=== PATIENT | male | born 1955 | race Caucasian/White ===

== ENCOUNTER 2025-04-05 14:05 | Inpatient (IN) ==
--- NOTE | 2025-04-05 14:27 | Emergency Department Note ---
Impression & Plan Atrial fibrillation with rapid ventricular response, Weakness, Acidosis, Acute hyponatremia ED Provider Note NAME: FRANCISCO BISHOP AGE: 69 SEX: M : 1955 ARRIVES VIA: Walk-In INFORMANT: Patient ED PROVIDER(S): Lambert Khan DO CHIEF COMPLAINT: Weakness HPI: Patient is a 69-year-old male who presents ER following 8 falls over the past week. He notes that he has been having diarrhea/loose stools with blood. Denies any black stools. This been going on for several weeks. He saw his PCP and was placed on 2 antibiotics which he started about 7 days ago. When he started these antibiotics he became really weak. He has been falling repetitively. He notes he has a small lack on the back of his head which has been present for the past 3 days. He last fell last night. He does take Plavix. He denies any pain from the fall other than a headache. Friend is present at bedside notes that she just found out about all of this today. ADDITIONAL HISTORY OBTAINED: Per HPI Chronic Medical/Social Conditions Affecting Care: Per HPI PAST MEDICAL HISTORY:See Below PAST SURGICAL HISTORY:See Below FAMILY HISTORY:See Below SOCIAL HISTORY:See Below HOME MEDICATIONS:See Below ALLERGIES:See Below VITALS:See Below PHYSICAL EXAMINATION: Primary Survey Airway: Intact Breathing: Normal, breath sounds equal bilaterally Circulation: Skin warm GCS: 15, Secondary Survey GENERAL: alert, disheveled, no acute distress HEAD: normal cephalic, 1 cm laceration in the hairline in the occipital region on the left head. No venous oozing. Scabbed over. EYE EXAM: normal conjunctiva, PERRL and EOM's grossly intact OROPHARYNX: no exudate, no erythema, lips, buccal mucosa, and tongue normal and mucous membranes are moist NECK: supple, no nuchal rigidity, no adenopathy, non-tender CHEST: stable to compression anteriorly and posteriorly LUNGS: clear to auscultation. Normal chest wall mechanics HEART: Tachycardic and irregular regular S1 normal and S2 normal ABDOMEN: abdomen soft, non-tender, normo-active bowel sounds, no masses, no rebound or guarding. PELVIS: stable to compression anteriorly and posteriorly BACK: Back is symmetrical on inspection and there is no deformity, no midline tenderness, no CVA tenderness. UPPER EXTREMITIES: full active and passive range of motion of all joints without tenderness to palpation LOWER EXTREMITIES: full active and passive range of motion of all joints without tenderness to palpation NEURO EXAM: Normal sensorium, cranial nerves II-XII grossly intact, normal speech, no gross weakness of arms, no gross weakness of legs. GCS: 15. MEDICAL DECISION MAKING: Patient is a 69-year-old male who presents ER as a trauma alert as he fell 6-8 times over the past week. He admits to a small laceration posterior occiput which was 9 cm in length. This occurred 3 days ago. He was found to be tachycardic with A-fib with RVR. Pressures were in the low 100s. Labs showed no significant leukocytosis or anemia. INR at 1.3. BMP with a hyponatremia at 128 and a slightly low CO2 at 18. Creatinine 1.3. LFTs bilirubin was unremarkable. Lipase was normal. CT johansen scan showed a pancolitis but no other acute pathology. Patient was given 2 L of IV fluids. Was given IV Lopressor 5 mg x 3 and heart rate trended down to 150s to 130s. And then trended back up. Was placed on a Cardizem drip and given a bolus of 10 and will titrate up. Discussed case with the hospitalist for further evaluation management treatment. Consults/Care Managements Discussions: Per [facility] Triage Nursing notes reviewed. Limited review of prior medical records performed Vital Signs: reviewed and remarkable for no significant abnormalities Differential diagnosis: Differential diagnoses include major intracranial, cervical, spinal, thoracic, abdominal, pelvic and neurologic injury. Fracture, contusion, sprain, strain, laceration, abrasions included as well. ER treatment provided: See below Diagnostics interpreted by me include EKG and cardiac monitoring as listed below: -Cardiac Monitoring: An order was placed for continuous cardiac monitoring. The monitor shows a rate of 180 with A-fib rhythm. -ECG: A-fib RVR rate of 188 Normal axis No PVCs ST depressions in the inferior leads ST depressions in the lateral leads QTc 417 -Laboratory studies:Interpreted by me as stated above in MDM and shown below. Imaging studies: Xrays: As interpreted by me: Portable AP upright 1 view of the chest shows no focal Lutrate CTs show: CT johansen scan as described above Procedures:none Critical Care: I have personally spent I have personally spent 75 minutes of critical care time in the direct management of this patient. This includes bedside care, interpretation of diagnostic studies, and testing, discussion with consultants, patient, and family members, and other required patient management activities. This [] minutes is in excess of all separately billable procedures. minutes of critical care time in the direct management of this patient. This includes bedside care, interpretation of diagnostic studies, and testing, discussion with consultants, patient, and family members, and other required patient management activities. This 75 minutes is in excess of all separately billable procedures. Past Med/Surg History Problem List (Updated 04/05/25 @ 17:19 by Lambert Khan DO) Acute hyponatremia (Acute) Acidosis (Acute) Weakness (Acute) Atrial fibrillation with rapid ventricular response (Acute) Encounter for pre-operative examination Medical History (Updated 04/05/25 @ 17:19 by Lambert Khan DO) Pericardial effusion HX OF; FOLLOWS WITH CARDIO PVCs (premature ventricular contractions) History of recent steroid use PREDNISONE X 5 DAYS / CERVICALGIA (12/2017) Obesity Degenerative disc disease CERVICAL Diabetes mellitus, type 2 Hypertension Hyperlipidemia Surgical History History of colonoscopy History of tonsillectomy Social History Smoking Status: Former smoker Tobacco Type: Cigarettes Do You Dip or Chew Tobacco: No; Hx Alcohol Use: No Hx Substance Use: No Preferred Language: Lao Communication Ability: Effective Visual Impairment: No Limitations Emt/Dispatcher Required: No Beliefs That Will Affect Care: None Current Living Situation: Alone Feels Safe at Home: Yes Assistive Devices: None Allergies Allergies Allergy/AdvReac Type Severity Reaction Status Date / Time Penicillins Allergy Mild MOUTH SORES Verified 07/05/21 10:16 Home Meds Home Medications Medication Instructions Recorded Confirmed aspirin 81 mg tablet,delayed 81 mg PO QDD 01/20/18 04/05/25 release magnesium oxide 400 mg PO QDD 01/20/18 04/05/25 metformin 500 mg tablet 1,000 mg PO BID 01/20/18 04/05/25 cyanocobalamin (vitamin B-12) 1,000 mcg sublingual DAILY 07/05/21 04/05/25 1,000 mcg sublingual tablet empagliflozin 25 mg tablet 25 mg PO DAILY 07/05/21 04/05/25 (Jardiance) verapamil 120 mg tablet,extended 120 mg PO QPM 07/05/21 04/05/25 release clopidogrel 75 mg tablet 75 mg PO DAILY 04/05/25 04/05/25 rosuvastatin 20 mg tablet 20 mg PO DAILY 04/05/25 04/05/25 semaglutide 1 mg/dose (4 mg/3 mL) 1 mg subcut WK 04/05/25 04/05/25 subcutaneous pen injector (Ozempic) Results & Data (ED) Vital Signs Vital Signs - 24 hr 04/05/25 14:13 04/05/25 14:25 04/05/25 14:28 Temperature 36.5 C 36.7 C Temperature Source Temporal Artery Scan Pulse Rate 91 H 183 H Pulse Rate [Apical] Pulse Rate from SpO2 Sensor Respiratory Rate 20 21 Respiratory Effort / Characteristics Respiratory Depth Normal Respiratory Pattern Blood Pressure 135/81 175/97 H 175/97 H Blood Pressure [Right Arm] Blood Pressure Mean 99 123 Blood Pressure Mean [Right Arm] Blood Pressure Position [Right Arm] Pulse Oximetry 95 100 Oxygen Delivery Method Room Air Room Air Oxygen Flow Rate 0 Sepsis Recent Fever Within 48 Hours No Sepsis New/Unexplained Change in Mental Status No Sepsis Action Taken by Nursing No Action Required 04/05/25 14:28 04/05/25 14:28 04/05/25 14:29 Temperature 36.7 C Temperature Source Oral Pulse Rate 183 H 161 H Pulse Rate [Apical] 183 H Pulse Rate from SpO2 Sensor Respiratory Rate 17 20 Respiratory Effort / Characteristics Non-Labored Spontaneous Respiratory Depth Normal Respiratory Pattern Blood Pressure Blood Pressure [Right Arm] 175/97 H Blood Pressure Mean Blood Pressure Mean [Right Arm] 123 Blood Pressure Position [Right Arm] Semi-fowlers Pulse Oximetry 100 100 Oxygen Delivery Method Room Air Room Air Oxygen Flow Rate Sepsis Recent Fever Within 48 Hours Sepsis New/Unexplained Change in Mental Status Sepsis Action Taken by Nursing 04/05/25 14:30 04/05/25 14:31 04/05/25 14:33 Temperature Temperature Source Pulse Rate 174 H 178 H Pulse Rate [Apical] Pulse Rate from SpO2 Sensor 89 Respiratory Rate 21 17 Respiratory Effort / Characteristics Respiratory Depth Respiratory Pattern Blood Pressure 164/123 H 117/86 Blood Pressure [Right Arm] Blood Pressure Mean 139 96 Blood Pressure Mean [Right Arm] Blood Pressure Position [Right Arm] Pulse Oximetry 90 Oxygen Delivery Method Room Air Oxygen Flow Rate Sepsis Recent Fever Within 48 Hours Sepsis New/Unexplained Change in Mental Status Sepsis Action Taken by Nursing 04/05/25 14:41 04/05/25 15:12 04/05/25 15:15 Temperature Temperature Source Pulse Rate 174 H 159 H 173 H Pulse Rate [Apical] Pulse Rate from SpO2 Sensor Respiratory Rate Respiratory Effort / Characteristics Respiratory Depth Respiratory Pattern Blood Pressure 134/82 114/89 Blood Pressure [Right Arm] Blood Pressure Mean Blood Pressure Mean [Right Arm] Blood Pressure Position [Right Arm] Pulse Oximetry Oxygen Delivery Method Oxygen Flow Rate Sepsis Recent Fever Within 48 Hours Sepsis New/Unexplained Change in Mental Status Sepsis Action Taken by Nursing 04/05/25 15:16 04/05/25 15:22 04/05/25 16:12 Temperature 36.9 C Temperature Source Oral Pulse Rate 173 H Pulse Rate [Apical] 164 H 170 H Pulse Rate from SpO2 Sensor Respiratory Rate 18 18 Respiratory Effort / Characteristics Non-Labored Spontaneous Non-Labored Spontaneous Respiratory Depth Normal Normal Respiratory Pattern Regular Regular Blood Pressure Blood Pressure [Right Arm] 96/77 L 146/90 H Blood Pressure Mean Blood Pressure Mean [Right Arm] 83 108 Blood Pressure Position [Right Arm] Pulse Oximetry 100 100 Oxygen Delivery Method Room Air Room Air Oxygen Flow Rate Sepsis Recent Fever Within 48 Hours Sepsis New/Unexplained Change in Mental Status Sepsis Action Taken by Nursing 04/05/25 16:34 04/05/25 17:00 Temperature 36.8 C Temperature Source Oral Pulse Rate Pulse Rate [Apical] 164 H 183 H Pulse Rate from SpO2 Sensor Respiratory Rate 18 18 Respiratory Effort / Characteristics Non-Labored Spontaneous Non-Labored Spontaneous Respiratory Depth Normal Normal Respiratory Pattern Regular Regular Blood Pressure Blood Pressure [Right Arm] 101/73 95/72 L Blood Pressure Mean Blood Pressure Mean [Right Arm] 82 79 Blood Pressure Position [Right Arm] Lying Pulse Oximetry 94 99 Oxygen Delivery Method Room Air Room Air Oxygen Flow Rate Sepsis Recent Fever Within 48 Hours Sepsis New/Unexplained Change in Mental Status Sepsis Action Taken by Nursing Laboratory Data 04/05/25 14:27 04/05/25 14:27 Lab Results 04/05/25 04/05/25 Range/Units 14:27 14:36 WBC 8.56 (4.8-10.8) K/ul RBC 6.54 H (4.70-6.10) M/uL Hgb 15.3 (14.0-18.0) g/dL POC Hgb 18.0 (14.0-18.0) g/dl Hct 48.4 (42.0-52.0) % POC Hct 53 H (42-52) % MCV 74.0 L (80.0-100.0) fL MCH 23.4 L (25.0-34.0) pg MCHC 31.6 L (32.0-36.0) g/dL RDW Std Deviation 46.2 (36.4-46.3) fL RDW Coeff of Tavo 19.3 H (11.5-14.5) % Plt Count 585 H (130-400) K/uL MPV 9.6 (9.4-12.4) fL Immature Gran % (Auto) 0.9 % Neut % (Auto) 79.4 % Lymph % (Auto) 13.3 % [place] % (Auto) 4.9 % Eos % (Auto) 0.7 % Baso % (Auto) 0.8 % Neut # (Auto) 6.79 H (1.40-6.50) K/uL Lymph # (Auto) 1.14 L (1.20-3.40) K/uL [place] # (Auto) 0.42 (0.11-0.59) K/uL Eos # (Auto) 0.06 (0.00-0.50) K/uL Baso # (Auto) 0.07 (0.00-0.20) K/uL Immature Gran # (Auto) 0.08 (0.01-0.20) K/uL PT 13.7 H (9.0-12.0) Seconds INR 1.3 H (0.9-1.1) APTT 28 (21-31) Seconds PTT Ratio 1.0 POC Sodium 129 L (135-144) mmol/L Sodium 128 L (136-145) mmol/L POC Potassium 4.2 (3.3-5.0) mmol/L Potassium 4.2 (3.5-5.1) mmol/L POC Chloride 92 L (101-112) mmol/L Chloride 87 L (98-107) mmol/L Carbon Dioxide 18 L (21-32) mmol/L POC Total CO2 17 L (24-31) mmol/L Anion Gap 23 H (3-11) POC Anion Gap 25.0 (16-25) mmol/L POC BUN 24 H (7-18) mg/dl BUN 24 H (6-23) mg/dl Creatinine 1.36 (0.6-1.4) mg/dl POC Creatinine 1.4 H (0.6-1.3) mg/dl Est Cr Clr Drug Dosing Not Reportable eGFR 56.68 BUN/Creatinine Ratio 17.6 (10-20) Glucose 195 H (70-99(Fasting)) mg/dl POC Glucose (other) 181 H (70-99) mg/dl Calcium 10.2 (8.6-10.3) mg/dl POC Ioniz Calcium [place] 1.09 L (1.12-1.32) mmol/l Magnesium 2.0 (1.7-2.4) mg/dl Total Bilirubin 0.8 (0.2-1.0) mg/dl AST 18 (13-39) U/L ALT 13 (7-52) U/L Alkaline Phosphatase 59 (34-104) U/L Total Creatine Kinase 114 (30-223) U/L Total Protein 9.1 H (6.0-8.3) gm/dl Albumin 3.6 (3.4-5.0) gm/dl Globulin 5.5 H (2.5-4.0) gm/dl Albumin/Globulin Ratio 0.7 L (0.9-2) Lipase 23 (11-82) U/L Administered Medications Diltiazem HCl 125 mg/ Dextrose 125 mls @ 5 mls/hr IV .Q24H [facility]; Protocol Stop: 05/05/25 15:44 Last Titration: 04/05/25 16:47 Dose: 10 mg/hr, 10 mls/hr Documented By: BHARAT Co-signed By: KYRIE Admin: 04/05/25 16:14 Dose: 5 mg/hr, 5 mls/hr Documented By: BHARAT Co-signed By: OSVALDO Discontinued Medications Diltiazem HCl (Diltiazem Hcl 5 Mg/Ml 5 Ml Vial) 10 mg IV NOW STA Stop: 04/05/25 15:46 Last Admin: 04/05/25 16:05 Dose: 10 mg Documented By: BHARAT Co-signed By: OSVALDO Sodium Chloride (Nss) 1,000 mls @ 999 mls/hr IV .Q1H1M ONE Stop: 04/05/25 15:27 Last Infusion: 04/05/25 15:35 Dose: Infused Documented By: Admin: 04/05/25 14:34 Dose: 999 mls/hr Documented By: NORMAN Sodium Chloride (Nss) 1,000 mls @ 999 mls/hr IV .Q1H1M ONE Stop: 04/05/25 16:25 Last Infusion: 04/05/25 16:32 Dose: Infused Documented By: Admin: 04/05/25 15:31 Dose: 999 mls/hr Documented By: BHARAT Ioversol (Optiray 320 100ml) 90 ml IV ONCE ONE Stop: 04/05/25 14:51 Last Admin: 04/05/25 14:51 Dose: 90 ml Documented By: NILS Metoprolol Tartrate (Metoprolol Tartrate 1 Mg/Ml Vial) 5 mg IV NOW STA Stop: 04/05/25 14:31 Last Admin: 04/05/25 14:33 Dose: 5 mg Documented By: NORMAN Metoprolol Tartrate (Metoprolol Tartrate 1 Mg/Ml Vial) Confirm Administered Dose 5 mg IV .ST-MED ONE Stop: 04/05/25 14:32 Last Admin: 04/05/25 14:36 Dose: Not Given Documented By: NORMAN Metoprolol Tartrate (Metoprolol Tartrate 1 Mg/Ml Vial) 5 mg IV NOW STA Stop: 04/05/25 14:40 Last Admin: 04/05/25 14:41 Dose: 5 mg Documented By: NORMAN Metoprolol Tartrate (Metoprolol Tartrate 1 Mg/Ml Vial) 5 mg IV NOW STA Stop: 04/05/25 14:54 Last Admin: 04/05/25 15:12 Dose: 5 mg Documented By: BHARAT Imaging Data Radiologist's Impression: Abdomen/Pelvis CT 04/05/25 14:25 CT SCAN OF THE CHEST, ABDOMEN, AND PELVIS WITH IV CONTRAST CLINICAL HISTORY: Trauma. Falls. COMPARISON STUDY: Chest CT dated 05/08/2022. TECHNIQUE: Following the IV administration of 90 cc of Optiray 320, CT scan of the chest, abdomen, and pelvis was performed from the thoracic inlet to the proximal femora. Images are reviewed in the axial, sagittal, and coronal planes. IV contrast was administered without complication. A dose lowering technique was utilized adhering to the principles of ALARA. CT DOSE: 4107.45 mGy.cm FINDINGS: CHEST: Thyroid: Imaged portions of the thyroid gland are normal in size and attenuation. Thoracic aorta: There is mild atherosclerotic calcification of the thoracic aorta, which is normal in caliber and demonstrates standard 3-vessel arch anatomy. No dissection is seen. Pulmonary vasculature: The pulmonary trunk is normal in caliber. There are no filling defects identified in the central pulmonary vessels to indicate pulmonary embolus. Note that this examination was not protocoled for evaluation of the pulmonary arteries. Heart: The heart is enlarged noting a moderate pericardial effusion. The coronary arteries are densely calcified. Lungs and pleural spaces: There is no airspace consolidation, pleural effusion, or pneumothorax. The trachea and central airways are clear. There is a 10 mm groundglass nodule in the right apex on image #51 with a 5 mm more nodular focus. This has modestly increased in size from 05/08/2022. An 8 mm subsolid nodular opacity in the left lower lobe on image #163 is also increased in size from previous. Mediastinum: There is no mediastinal hematoma or lymphadenopathy. Archana: Clear. Axillae: There is no axillary lymphadenopathy. Bony thorax: The skeletal structures are osteopenic. The bony thorax appears intact. No lytic or blastic lesions are identified. ABDOMEN AND PELVIS: Liver: The contrast-enhanced liver is normal in size, contour, and attenuation. Fatty infiltration is seen adjacent to the falciform ligament. There is no intrahepatic biliary ductal dilatation. The hepatic veins and portal veins are patent. Gallbladder: Unremarkable. Spleen: Normal in size and attenuation. Pancreas: Unremarkable. Adrenal glands: A 2.8 cm indeterminant right adrenal nodule has not appreciably changed from 2023. The left adrenal gland is normal in appearance. Kidneys: The contrast enhanced kidneys are normal in size and without hydronephrosis. The kidneys enhance symmetrically. A 1.4 cm cyst is noted on the right. Additional subcentimeter cortical hypodensities also likely represent cysts but are too small for definitive characterization. Abdominal vasculature: The abdominal aorta is normal in course and caliber noting moderate atherosclerotic calcification. There is a small fat-containing umbilical hernia. Stents are present within the right iliac arteries. These appear patent. Stomach and bowel: There is a small hiatal hernia. There is no bowel obstruction. The colonic wall appears diffusely thickened with mild edema indicating a nonspecific pancolitis. The appendix is well-visualized and normal. Peritoneum: There is no intraperitoneal free air or abdominal ascites. Lymphadenopathy: None. Pelvic viscera: The prostate gland is normal in size and heterogeneous in attenuation. The bladder wall appears thickened/trabeculated indicating chronic outlet obstruction. Postsurgical change is noted in the right groin. Skeletal structures: The skeletal structures are osteopenic. There is mild to moderate lumbosacral spondylosis. The lumbosacral spine, bony pelvis, and proximal femora appear intact. No lytic or blastic lesions are seen. IMPRESSION: 1. There is no acute posttraumatic intrathoracic abnormality. 2. There is no airspace consolidation, pleural effusion, or pneumothorax. 3. There is no evidence of solid organ injury in the abdomen or pelvis. 4. Findings are consistent with a nonspecific pancolitis. 5. A groundglass lesion at the right apex measuring up to 10 mm and an 8 mm subsolid nodule in the left lower lobe have increased in size dating back to 2022. Low-grade adenomatous lesions are not excluded. Nonemergent follow-up with pulmonology is recommended, as is a 6 month follow-up chest CT for reassessment. 6. An indeterminant right adrenal nodule is unchanged from 2022. 7. Cardiomegaly noting coronary artery atherosclerosis and a moderate pericardial effusion. 8. Additional findings as above. ACT 112: Positive. There are findings on this exam that require communication between the performing entity and the patient following Patient Test Result Information Act ([place] Act 112) guidelines. Electronically signed by: Redd Dunne M.D. 04/05/2025 3:[address] 04/05/25 14:25 CT SCAN OF THE CERVICAL SPINE CLINICAL HISTORY: Falls. COMPARISON STUDY: Fluoroscopic images of the cervical spine May 07, 2018. MRI of the cervical spine December 14, 2017. TECHNIQUE: CT scan of the cervical spine is performed from the skull base to the upper thoracic spine. Images are reviewed in the axial, sagittal, and coronal planes. IV contrast was not administered for this examination. A dose lowering technique was utilized adhering to the principles of ALARA. FINDINGS: Skeletal structures: Status post C4-C5 discectomy and fusion. There is no evidence of fracture or subluxation involving the cervical spine. Vertebral body height and alignment are maintained. The odontoid process and lateral masses are intact. The atlantoaxial articulation is preserved. The spinous processes appear intact. Moderate multilevel degenerative changes within the cervical spine are present. Soft tissues: The prevertebral and paraspinous soft tissues are within normal limits. Calvarium: The visualized calvarium at the skull base appears intact. Brain parenchyma: Partially visualized brain parenchyma at the skull base is within normal limits. Lung apices: A right upper lobe subsolid pulmonary nodule is better depicted on the chest CT which will be reported separately. IMPRESSION: No acute cervical spine fracture or subluxation. ACT 112: Negative or not required by law. Electronically signed by: Shen Santos M.D. 04/05/2025 3:[address] 04/05/25 14:25 CT SCAN OF THE CHEST, ABDOMEN, AND PELVIS WITH IV CONTRAST CLINICAL HISTORY: Trauma. Falls. COMPARISON STUDY: Chest CT dated 05/08/2022. TECHNIQUE: Following the IV administration of 90 cc of Optiray 320, CT scan of the chest, abdomen, and pelvis was performed from the thoracic inlet to the proximal femora. Images are reviewed in the axial, sagittal, and coronal planes. IV contrast was administered without complication. A dose lowering technique was utilized adhering to the principles of ALARA. CT DOSE: 4107.45 mGy.cm FINDINGS: CHEST: Thyroid: Imaged portions of the thyroid gland are normal in size and attenuation. Thoracic aorta: There is mild atherosclerotic calcification of the thoracic aorta, which is normal in caliber and demonstrates standard 3-vessel arch anatomy. No dissection is seen. Pulmonary vasculature: The pulmonary trunk is normal in caliber. There are no filling defects identified in the central pulmonary vessels to indicate pulmonary embolus. Note that this examination was not protocoled for evaluation of the pulmonary arteries. Heart: The heart is enlarged noting a moderate pericardial effusion. The coronary arteries are densely calcified. Lungs and pleural spaces: There is no airspace consolidation, pleural effusion, or pneumothorax. The trachea and central airways are clear. There is a 10 mm groundglass nodule in the right apex on image #51 with a 5 mm more nodular focus. This has modestly increased in size from 05/08/2022. An 8 mm subsolid nodular opacity in the left lower lobe on image #163 is also increased in size from previous. Mediastinum: There is no mediastinal hematoma or lymphadenopathy. Archana: Clear. Axillae: There is no axillary lymphadenopathy. Bony thorax: The skeletal structures are osteopenic. The bony thorax appears intact. No lytic or blastic lesions are identified. ABDOMEN AND PELVIS: Liver: The contrast-enhanced liver is normal in size, contour, and attenuation. Fatty infiltration is seen adjacent to the falciform ligament. There is no intrahepatic biliary ductal dilatation. The hepatic veins and portal veins are patent. Gallbladder: Unremarkable. Spleen: Normal in size and attenuation. Pancreas: Unremarkable. Adrenal glands: A 2.8 cm indeterminant right adrenal nodule has not appreciably changed from 2022. The left adrenal gland is normal in appearance. Kidneys: The contrast enhanced kidneys are normal in size and without hydronephrosis. The kidneys enhance symmetrically. A 1.4 cm cyst is noted on the right. Additional subcentimeter cortical hypodensities also likely represent cysts but are too small for definitive characterization. Abdominal vasculature: The abdominal aorta is normal in course and caliber noting moderate atherosclerotic calcification. There is a small fat-containing umbilical hernia. Stents are present within the right iliac arteries. These appear patent. Stomach and bowel: There is a small hiatal hernia. There is no bowel obstruction. The colonic wall appears diffusely thickened with mild edema indicating a nonspecific pancolitis. The appendix is well-visualized and normal. Peritoneum: There is no intraperitoneal free air or abdominal ascites. Lymphadenopathy: None. Pelvic viscera: The prostate gland is normal in size and heterogeneous in attenuation. The bladder wall appears thickened/trabeculated indicating chronic outlet obstruction. Postsurgical change is noted in the right groin. Skeletal structures: The skeletal structures are osteopenic. There is mild to moderate lumbosacral spondylosis. The lumbosacral spine, bony pelvis, and proximal femora appear intact. No lytic or blastic lesions are seen. IMPRESSION: 1. There is no acute posttraumatic intrathoracic abnormality. 2. There is no airspace consolidation, pleural effusion, or pneumothorax. 3. There is no evidence of solid organ injury in the abdomen or pelvis. 4. Findings are consistent with a nonspecific pancolitis. 5. A groundglass lesion at the right apex measuring up to 10 mm and an 8 mm subsolid nodule in the left lower lobe have increased in size dating back to 2022. Low-grade adenomatous lesions are not excluded. Nonemergent follow-up with pulmonology is recommended, as is a 6 month follow-up chest CT for reassessment. 6. An indeterminant right adrenal nodule is unchanged from 2022. 7. Cardiomegaly noting coronary artery atherosclerosis and a moderate pericardial effusion. 8. Additional findings as above. ACT 112: Positive. There are findings on this exam that require communication between the performing entity and the patient following Patient Test Result Information Act ([place] Act 112) guidelines. Electronically signed by: Redd Dunne M.D. 04/05/2025 3:32 PM Chest X-Ray 04/05/25 14:25 SINGLE VIEW CHEST CLINICAL HISTORY: Trauma FINDINGS: An AP, portable, semierect chest radiograph is compared to study dated 01/23/2018 and correlated with chest CT dated 05/08/2022. The examination is degraded by portable technique and apical lordotic positioning. The heart is enlarged. The pulmonary vasculature is noncongested. The lungs and pleural spaces are clear. No pneumothorax is seen. The skeletal structures are osteopenic. The bony thorax is grossly intact. Degenerative change is seen in the shoulders. IMPRESSION: Cardiomegaly with no acute cardiopulmonary abnormality identified. ACT 112: Negative or not required by law. Electronically signed by: Redd Dunne M.D. 04/05/2025 2:[address] 04/05/25 14:25 CT SCAN OF THE BRAIN WITHOUT IV CONTRAST CLINICAL HISTORY: Falls. COMPARISON STUDY: None. TECHNIQUE: Unenhanced axial CT scan of the brain was performed from the vertex to the skull base. A dose lowering technique was utilized adhering to the principles of ALARA. FINDINGS: Brain parenchyma: No acute intracranial hemorrhage, midline shift or mass effect is present. Blanco-white matter differentiation is preserved. There are no extra- axial fluid collections. There are no findings to suggest acute dural sinus thrombosis or acute territorial infarct. Ventricles, sulci, cisterns: There is no hydrocephalus. The basal cisterns are patent. Calvarium: No calvarial fractures. Sinuses and mastoids: The visualized paranasal sinuses are clear. The mastoid air cells are well pneumatized. Orbits: The bony orbits are grossly intact. IMPRESSION: 1. No acute intracranial findings. 2. No calvarial fractures. ACT 112: Negative or not required by law. Electronically signed by: Shen Santos M.D. 04/05/2025 3:16 PM Discharge Plan Visit Data Chief Complaint: Trauma Stated Complaint: WEAKNESS/FALLING HIT HEAD BLOOD THINNERS ED Provider: Lambert Khan Discharge Problem: Atrial fibrillation with rapid ventricular response, Weakness, Acidosis, Acute hyponatremia Condition: Serious Forms Stand Alone Forms: My [facility] Prescriptions Prescriptions: No Action metformin 500 mg Tablet 1,000 mg PO BID Patient Comments: 500mg tabs #2 in am and #1 at hs aspirin 81 mg Tablet,Delayed Release (Dr/Ec) 81 mg PO QDD magnesium oxide 400 mg Capsule 400 mg PO QDD verapamil 120 mg Tablet Extended Release 120 mg PO QPM cyanocobalamin (vitamin B-12) 1,000 mcg Tablet, Sublingual 1,000 mcg SUBLINGUAL DAILY Jardiance 25 mg Tablet 25 mg PO DAILY rosuvastatin 20 mg tablet 20 mg PO DAILY Ozempic 1 mg/dose (4 mg/3 mL) pen injector 1 mg SUBCUT WK clopidogrel 75 mg tablet 75 mg PO DAILY Referrals Referrals: Geovanny Lacy MD [Primary Care Provider] -
[2025-04-05] MEDS: METOPROLOL TARTRATE 1 MG/ML VIAL IV STA ×3 (14:33→15:12)
[2025-04-05] MEDS: SODIUM CHLORIDE 0.9% 1,000 ML IV ONE ×2 (14:34→15:31)
[2025-04-05] MEDS: METOPROLOL TARTRATE 1 MG/ML VIAL IV ONE (14:36)
--- NOTE | 2025-04-05 14:44 | XRay Report ---
SINGLE VIEW CHEST CLINICAL HISTORY: Trauma FINDINGS: An AP, portable, semierect chest radiograph is compared to study dated 01/23/2018 and correl ated with chest CT dated 05/08/2022. The examination is degraded by portable technique and apical lord otic positioning. The heart is enlarged. The pulmonary vasculature is noncongested. The lungs and ple ural spaces are clear. No pneumothorax is seen. The skeletal structures are osteopenic. The bony thor ax is grossly intact. Degenerative change is seen in the shoulders. IMPRESSION: Cardiomegaly with no acute cardiopulmonary abnormality identified. ACT 112: Negative or not required by law. Electronically signed by: Redd Dunne M.D. 04/05/2025 2:42 PM
[2025-04-05 14:49] LABS: Hematocrit (blood only) 48.4 % (42.0-52.0); Hemoglobin 15.3 g/dL (14.0-18.0); Immature Granulocytes # (auto) 0.08 K/uL (0.01-0.20); Immature Granulocytes % (auto) 0.9 %; Mean Corpuscular Hemoglobin 23.4 pg (25.0-34.0); Mean Corpuscular Volume 74.0 fL (80.0-100.0); Platelet Count 585 K/uL (130-400); RDW Standard Deviation 46.2 fL (36.4-46.3); Red Blood Count 6.54 M/uL (4.70-6.10); White Blood Count 8.56 K/ul (4.8-10.8)
[2025-04-05] MEDS: OPTIRAY 320 100ml IV ONE (14:51)
[2025-04-05 15:07] LABS: Alanine Aminotransferase 13 U/L (7-52); Albumin Globulin Ratio 0.7 (0.9-2); Albumin Level 3.6 gm/dl (3.4-5.0); Alkaline Phosphatase 59 U/L (34-104); Anion Gap 23 (3-11); Bilirubin,Total 0.8 mg/dl (0.2-1.0); Blood Urea Nitrogen 24 mg/dl (6-23); Calcium 10.2 mg/dl (8.6-10.3); Carbon Dioxide 18 mmol/L (21-32); Chloride 87 mmol/L (98-107); Globulin 5.5 gm/dl (2.5-4.0); Glucose 195 mg/dl (70-99(Fasting)); Lipase 23 U/L (11-82); Potassium 4.2 mmol/L (3.5-5.1); Sodium 128 mmol/L (136-145); Total Protein 9.1 gm/dl (6.0-8.3)
--- NOTE | 2025-04-05 15:18 | CT Scan Report ---
CT SCAN OF THE BRAIN WITHOUT IV CONTRAST CLINICAL HISTORY: Falls. COMPARISON STUDY: None. TECHNIQUE: Unenhanced axial CT scan of the brain was performed from the vertex to the skull base. A dose lowering technique was utilized adhering to the principles of ALARA. FINDINGS: Brain parenchyma: No acute intracranial hemorrhage, midline shift or mass effect is present. Blanco-whi te matter differentiation is preserved. There are no extra-axial fluid collections. There are no find ings to suggest acute dural sinus thrombosis or acute territorial infarct. Ventricles, sulci, cisterns: There is no hydrocephalus. The basal cisterns are patent. Calvarium: No calvarial fractures. Sinuses and mastoids: The visualized paranasal sinuses are clear. The mastoid air cells are well pneu matized. Orbits: The bony orbits are grossly intact. IMPRESSION: 1. No acute intracranial findings. 2. No calvarial fractures. ACT 112: Negative or not required by law. Electronically signed by: Shen Santos M.D. 04/05/2025 3:16 PM
[2025-04-05 15:23] LABS: INR 1.3 (0.9-1.1); Partial Thromboplastin Time 28 Seconds (21-31); Prothrombin Time 13.7 Seconds (9.0-12.0)
--- NOTE | 2025-04-05 15:25 | CT Scan Report ---
CT SCAN OF THE CERVICAL SPINE CLINICAL HISTORY: Falls. COMPARISON STUDY: Fluoroscopic images of the cervical spine May 07, 2018. MRI of the cervical sp ine December 14, 2017. TECHNIQUE: CT scan of the cervical spine is performed from the skull base to the upper thoracic spine . Images are reviewed in the axial, sagittal, and coronal planes. IV contrast was not administered fo r this examination. A dose lowering technique was utilized adhering to the principles of ALARA. FINDINGS: Skeletal structures: Status post C4-C5 discectomy and fusion. There is no evidence of fracture or sub luxation involving the cervical spine. Vertebral body height and alignment are maintained. The odont oid process and lateral masses are intact. The atlantoaxial articulation is preserved. The spinous pr ocesses appear intact. Moderate multilevel degenerative changes within the cervical spine are present . Soft tissues: The prevertebral and paraspinous soft tissues are within normal limits. Calvarium: The visualized calvarium at the skull base appears intact. Brain parenchyma: Partially visualized brain parenchyma at the skull base is within normal limits. Lung apices: A right upper lobe subsolid pulmonary nodule is better depicted on the chest CT which wi ll be reported separately. IMPRESSION: No acute cervical spine fracture or subluxation. ACT 112: Negative or not required by law. Electronically signed by: Shen Santos M.D. 04/05/2025 3:24 PM
--- NOTE | 2025-04-05 15:34 | CT Scan Report ---
CT SCAN OF THE CHEST, ABDOMEN, AND PELVIS WITH IV CONTRAST CLINICAL HISTORY: Trauma. Falls. COMPARISON STUDY: Chest CT dated 05/08/2022. TECHNIQUE: Following the IV administration of 90 cc of Optiray 320, CT scan of the chest, abdomen, an d pelvis was performed from the thoracic inlet to the proximal femora. Images are reviewed in the axi al, sagittal, and coronal planes. IV contrast was administered without complication. A dose lowering technique was utilized adhering to the principles of ALARA. CT DOSE: 4107.45 mGy.cm FINDINGS: CHEST: Thyroid: Imaged portions of the thyroid gland are normal in size and attenuation. Thoracic aorta: There is mild atherosclerotic calcification of the thoracic aorta, which is normal in caliber and demonstrates standard 3-vessel arch anatomy. No dissection is seen. Pulmonary vasculature: The pulmonary trunk is normal in caliber. There are no filling defects identif ied in the central pulmonary vessels to indicate pulmonary embolus. Note that this examination was no t protocoled for evaluation of the pulmonary arteries. Heart: The heart is enlarged noting a moderate pericardial effusion. The coronary arteries are densel y calcified. Lungs and pleural spaces: There is no airspace consolidation, pleural effusion, or pneumothorax. The trachea and central airways are clear. There is a 10 mm groundglass nodule in the right apex on image #51 with a 5 mm more nodular focus. This has modestly increased in size from 05/08/2022. An 8 mm subs olid nodular opacity in the left lower lobe on image #163 is also increased in size from previous. Mediastinum: There is no mediastinal hematoma or lymphadenopathy. Archana: Clear. Axillae: There is no axillary lymphadenopathy. Bony thorax: The skeletal structures are osteopenic. The bony thorax appears intact. No lytic or memo tic lesions are identified. ABDOMEN AND PELVIS: Liver: The contrast-enhanced liver is normal in size, contour, and attenuation. Fatty infiltration is seen adjacent to the falciform ligament. There is no intrahepatic biliary ductal dilatation. The hep atic veins and portal veins are patent. Gallbladder: Unremarkable. Spleen: Normal in size and attenuation. Pancreas: Unremarkable. Adrenal glands: A 2.8 cm indeterminant right adrenal nodule has not appreciably changed from 2022. Th e left adrenal gland is normal in appearance. Kidneys: The contrast enhanced kidneys are normal in size and without hydronephrosis. The kidneys enh ance symmetrically. A 1.4 cm cyst is noted on the right. Additional subcentimeter cortical hypodensit ies also likely represent cysts but are too small for definitive characterization. Abdominal vasculature: The abdominal aorta is normal in course and caliber noting moderate atheroscle rotic calcification. There is a small fat-containing umbilical hernia. Stents are present within the right iliac arteries. These appear patent. Stomach and bowel: There is a small hiatal hernia. There is no bowel obstruction. The colonic wall ap pears diffusely thickened with mild edema indicating a nonspecific pancolitis. The appendix is well- visualized and normal. Peritoneum: There is no intraperitoneal free air or abdominal ascites. Lymphadenopathy: None. Pelvic viscera: The prostate gland is normal in size and heterogeneous in attenuation. The bladder wa ll appears thickened/trabeculated indicating chronic outlet obstruction. Postsurgical change is noted in the right groin. Skeletal structures: The skeletal structures are osteopenic. There is mild to moderate lumbosacral sp ondylosis. The lumbosacral spine, bony pelvis, and proximal femora appear intact. No lytic or blastic lesions are seen. IMPRESSION: 1. There is no acute posttraumatic intrathoracic abnormality. 2. There is no airspace consolidation, pleural effusion, or pneumothorax. 3. There is no evidence of solid organ injury in the abdomen or pelvis. 4. Findings are consistent with a nonspecific pancolitis. 5. A groundglass lesion at the right apex measuring up to 10 mm and an 8 mm subsolid nodule in the le ft lower lobe have increased in size dating back to 2022. Low-grade adenomatous lesions are not exclu ded. Nonemergent follow-up with pulmonology is recommended, as is a 6 month follow-up chest CT for re assessment. 6. An indeterminant right adrenal nodule is unchanged from 2022. 7. Cardiomegaly noting coronary artery atherosclerosis and a moderate pericardial effusion. 8. Additional findings as above. ACT 112: Positive. There are findings on this exam that require communication between the performing entity and the patient following Patient Test Result Information Act ([place] Act 112) guidelines. Electronically signed by: Redd Dunne M.D. 04/05/2025 3:32 PM
[2025-04-05 15:45] LABS: Creatine Kinase 114 U/L (30-223)
--- NOTE | 2025-04-05 16:57 | History & Physical Report ---
Date of Service April 05, 2025 Assessment & Plan (1) Atrial fibrillation with rapid ventricular response: (2) Acute hyponatremia: (3) Dehydration: (4) PAD (peripheral artery disease): (5) Diabetes mellitus, type 2: (6) Hypertension: (7) Pericardial effusion: (8) CAD (coronary artery disease): Plan This is a 69 y/o male with DM2, PAD, known pericardial effusion, hx NSVT, CAD, HTN, dyslipidemia, and other history as outlined below who presented to the ED today with recurrent falls and weakness. In the ED, pt was found to have new- onset atrial fibrillation with rapid ventricular response with rates in the 180s. He was given a total of Lopressor 15 mg IV, then 10 mg of diltiazem - rate transiently dropped to the 130s before returning to the 170s to 180s. He was started on a diltiazem gtt and referred for admission. #New-onset atrial fibrillation with RVR - rates persistently in the 160s to 180s, borderline hypotension (BPs in the 90s to low 100s) Likely exacerbated by dehydration from diarrhea/poor oral intake, missed medications Potassium 4.2, magnesium 2.0 - Admit to PCU - Continue diltiazem gtt, may need to consider changing to amiodarone if inadequate rate control with diltiazem - ECHO - Consult cardiology - [id number] score of 4, deferring heparin gtt for now due to ongoing rectal bleeding #Dehydration with hyponatremia (sodium 128) Received 2L of NSS in the ED - Will start NSS at 75 cc/hr for additional 1L, then reassess - BMP this evening and in AM #Type 2 Diabetes - Holding oral medications, Ozempic - Insulin sliding scale - Diabetic diet as tolerated - BSG ACHS #Chronic diarrhea and rectal bleeding Hgb currently normal but suspect hemoconcentrated in the setting of dehydration - Repeat stool studies including C. diff and Giardia (well water source) - Consult GI #PAD - s/p iliac stent - Continue aspirin and Plavix - monitor H&H, has been continuing as outpatient even with ongoing rectal bleeding Pt seen and reviewed with collaborating physician, Dr. Thomas. Plan of care discussed and as outlined above Code status: full code Jessica Andrews PA-C Addendum: Notified by RN that pt with ongoing rates in the 170s to 180s, dilitiazem gtt at 10, BP in the 90s systolic Discussed with Dr. Thomas and Dr. Kaycee Benoit saw pt in the ED - planning to cardiovert, will change to ICU status, update orders Jessica Andrews PA-C History of Present Illness Chief Complaint: weakness, recurrent falls Primary Care Provider: Geovanny Lacy MD This is a 69 y/o male with DM2, PAD, known pericardial effusion, hx NSVT, CAD, HTN, dyslipidemia, and other history as outlined below who presented to the ED today with recurrent falls and weakness. Pt reports issues with diarrhea and rectal bleeding for several months. He was seen at urgent care on 03/24 and had labs done, CT which showed pancolitis. He was started on a ten day course of Cipro/Flagyl and ordered stool studies, which were negative. He saw GI on 04/01 who recommended repeat labs and a colonoscopy, which is scheduled for April. Pt reports some decrease in the severity of the rectal bleeding after the antibiotics but continues to have urgent diarrhea, incontinent at times. Ongoing nausea but vomiting/dry heaves seem to have improved after the antibiotics. He has lower abdominal discomfort and bloating but no severe abdominal pain. Appetite is poor and oral intake is limited as any oral intake seems to worsen the diarrhea. Pt notes ongoing dizziness with standing, which he thinks is contributing to the frequent falls, but no syncopal episode. He denies chest pain, palpitations, dyspnea. He denies prior history of atrial fibrillation. He denies orthopnea, peripheral edema, fevers, chills, sweats, ROCHA. Allergies Allergy/AdvReac Type Severity Reaction Status Date / Time Penicillins Allergy Mild MOUTH SORES Verified 07/05/21 10:16 Home Medications Medication Instructions Recorded Confirmed Type aspirin 81 mg tablet,delayed 81 mg PO QDD 01/20/18 04/05/25 History release magnesium oxide 400 mg PO QDD 01/20/18 04/05/25 History metformin 500 mg tablet 1,000 mg PO BID 01/20/18 04/05/25 History cyanocobalamin (vitamin B-12) 1,000 mcg sublingual DAILY 07/05/21 04/05/25 History 1,000 mcg sublingual tablet empagliflozin 25 mg tablet 25 mg PO DAILY 07/05/21 04/05/25 History (Jardiance) verapamil 120 mg tablet,extended 120 mg PO QPM 07/05/21 04/05/25 History release clopidogrel 75 mg tablet 75 mg PO DAILY 04/05/25 04/05/25 History rosuvastatin 20 mg tablet 20 mg PO DAILY 04/05/25 04/05/25 History semaglutide 1 mg/dose (4 mg/3 mL) 1 mg subcut WK 04/05/25 04/05/25 History subcutaneous pen injector (Ozempic) Past Med/Surg History Problem List (Updated 04/05/25 @ 18:15 by Janine Andrews PA-C) Dehydration Acute hyponatremia (Acute) Acidosis (Acute) Weakness (Acute) Atrial fibrillation with rapid ventricular response (Acute) Medical History CAD (coronary artery disease) Gout NSVT (nonsustained ventricular tachycardia) PAD (peripheral artery disease) Pericardial effusion HX OF; FOLLOWS WITH CARDIO PVCs (premature ventricular contractions) Obesity Degenerative disc disease CERVICAL Diabetes mellitus, type 2 Hypertension Hyperlipidemia Surgical History S/P cervical spinal fusion Status post insertion of iliac artery stent History of cardiac cath History of colonoscopy History of tonsillectomy Family History (Updated 04/05/25 @ 17:50 by Janine Andrews PA-C) Mother Myocardial infarction at 64 Brother Myocardial infarction Father Prostate cancer Grandfather (Paternal) Prostate cancer Social History Smoking Status: Former smoker Tobacco Type: Cigarettes Do You Dip or Chew Tobacco: No; Hx Alcohol Use: No Hx Substance Use: No Preferred Language: Kosovan Communication Ability: Effective Visual Impairment: No Limitations Tax Assessor Required: No Beliefs That Will Affect Care: None Current Living Situation: Alone Feels Safe at Home: Yes Assistive Devices: None Review of Systems Review of Systems: All systems reviewed & are unremarkable except as noted in Subjective Physical Exam Physical Exam: General: awake, alert, NAD HEENT: no scleral icterus, dry oral mucosa Neck: supple, trachea midline Heart: irregularly irregular, tachycardic Lungs: CTA bilaterally on the anterior Abdomen: soft, NT, +BS Extremities: no significant pedal edema, radial pulses 2+ and equal Skin: dry, no rashes or jaundice Neurologic: Ox3, no confusion or dysarthria Results & Data Results & Data Vital Signs (Past 12 Hours) Vital Signs Temp Pulse Pulse Resp BP BP Pulse Ox 04/05/25 16:34 164 H 18 101/73 94 04/05/25 16:12 170 H 18 146/90 H 100 04/05/25 15:22 36.9 C 164 H 18 96/77 L 100 04/05/25 15:16 173 H 04/05/25 15:15 173 H 04/05/25 15:12 159 H 114/89 04/05/25 14:41 174 H 134/82 04/05/25 14:33 178 H 17 117/86 90 04/05/25 14:31 164/123 H 04/05/25 14:30 174 H 21 04/05/25 14:29 161 H 04/05/25 14:28 36.7 C 183 H 20 175/97 H 100 04/05/25 14:28 183 H 17 100 04/05/25 14:28 36.7 C 183 H 21 175/97 H 100 04/05/25 14:25 175/97 H 04/05/25 14:13 36.5 C 91 H 20 135/81 95 O2 Del Method O2 Flow Rate 04/05/25 16:34 Room Air 04/05/25 16:12 Room Air 04/05/25 15:22 Room Air 04/05/25 15:16 04/05/25 15:15 04/05/25 15:12 04/05/25 14:41 04/05/25 14:33 Room Air 04/05/25 14:31 04/05/25 14:30 04/05/25 14:29 04/05/25 14:28 Room Air 04/05/25 14:28 Room Air 04/05/25 14:28 Room Air 0 04/05/25 14:25 04/05/25 14:13 Room Air Laboratory Results Lab Results 04/05/25 04/05/25 Range/Units 14:27 14:36 WBC 8.56 (4.8-10.8) K/ul RBC 6.54 H (4.70-6.10) M/uL Hgb 15.3 (14.0-18.0) g/dL POC Hgb 18.0 (14.0-18.0) g/dl Hct 48.4 (42.0-52.0) % POC Hct 53 H (42-52) % MCV 74.0 L (80.0-100.0) fL MCH 23.4 L (25.0-34.0) pg MCHC 31.6 L (32.0-36.0) g/dL RDW Std Deviation 46.2 (36.4-46.3) fL RDW Coeff of [place] 19.3 H (11.5-14.5) % Plt Count 585 H (130-400) K/uL MPV 9.6 (9.4-12.4) fL Immature Gran % (Auto) 0.9 % Neut % (Auto) 79.4 % Lymph % (Auto) 13.3 % [place] % (Auto) 4.9 % Eos % (Auto) 0.7 % Baso % (Auto) 0.8 % Neut # (Auto) 6.79 H (1.40-6.50) K/uL Lymph # (Auto) 1.14 L (1.20-3.40) K/uL [place] # (Auto) 0.42 (0.11-0.59) K/uL Eos # (Auto) 0.06 (0.00-0.50) K/uL Baso # (Auto) 0.07 (0.00-0.20) K/uL Immature Gran # (Auto) 0.08 (0.01-0.20) K/uL PT 13.7 H (9.0-12.0) Seconds INR 1.3 H (0.9-1.1) APTT 28 (21-31) Seconds PTT Ratio 1.0 POC Sodium 129 L (135-144) mmol/L Sodium 128 L (136-145) mmol/L POC Potassium 4.2 (3.3-5.0) mmol/L Potassium 4.2 (3.5-5.1) mmol/L POC Chloride 92 L (101-112) mmol/L Chloride 87 L (98-107) mmol/L Carbon Dioxide 18 L (21-32) mmol/L POC Total CO2 17 L (24-31) mmol/L Anion Gap 23 H (3-11) POC Anion Gap 25.0 (16-25) mmol/L POC BUN 24 H (7-18) mg/dl BUN 24 H (6-23) mg/dl Creatinine 1.36 (0.6-1.4) mg/dl POC Creatinine 1.4 H (0.6-1.3) mg/dl Est Cr Clr Drug Dosing Not Reportable eGFR 56.68 BUN/Creatinine Ratio 17.6 (10-20) Glucose 195 H (70-99(Fasting)) mg/dl POC Glucose (other) 181 H (70-99) mg/dl Calcium 10.2 (8.6-10.3) mg/dl POC Ioniz Calcium [place] 1.09 L (1.12-1.32) mmol/l Total Bilirubin 0.8 (0.2-1.0) mg/dl AST 18 (13-39) U/L ALT 13 (7-52) U/L Alkaline Phosphatase 59 (34-104) U/L Total Creatine Kinase 114 (30-223) U/L Total Protein 9.1 H (6.0-8.3) gm/dl Albumin 3.6 (3.4-5.0) gm/dl Globulin 5.5 H (2.5-4.0) gm/dl Albumin/Globulin Ratio 0.7 L (0.9-2) Lipase 23 (11-82) U/L Diagnostic Findings Abdomen/Pelvis CT 04/05/25 14:25 CT SCAN OF THE CHEST, ABDOMEN, AND PELVIS WITH IV CONTRAST CLINICAL HISTORY: Trauma. Falls. COMPARISON STUDY: Chest CT dated 05/08/2022. TECHNIQUE: Following the IV administration of 90 cc of Optiray 320, CT scan of the chest, abdomen, and pelvis was performed from the thoracic inlet to the proximal femora. Images are reviewed in the axial, sagittal, and coronal planes. IV contrast was administered without complication. A dose lowering technique was utilized adhering to the principles of ALARA. CT DOSE: 4107.45 mGy.cm FINDINGS: CHEST: Thyroid: Imaged portions of the thyroid gland are normal in size and attenuation. Thoracic aorta: There is mild atherosclerotic calcification of the thoracic aorta, which is normal in caliber and demonstrates standard 3-vessel arch anatomy. No dissection is seen. Pulmonary vasculature: The pulmonary trunk is normal in caliber. There are no filling defects identified in the central pulmonary vessels to indicate pulmonary embolus. Note that this examination was not protocoled for evaluation of the pulmonary arteries. Heart: The heart is enlarged noting a moderate pericardial effusion. The coronary arteries are densely calcified. Lungs and pleural spaces: There is no airspace consolidation, pleural effusion, or pneumothorax. The trachea and central airways are clear. There is a 10 mm groundglass nodule in the right apex on image #51 with a 5 mm more nodular focus. This has modestly increased in size from 05/08/2022. An 8 mm subsolid nodular opacity in the left lower lobe on image #163 is also increased in size from previous. Mediastinum: There is no mediastinal hematoma or lymphadenopathy. Archana: Clear. Axillae: There is no axillary lymphadenopathy. Bony thorax: The skeletal structures are osteopenic. The bony thorax appears intact. No lytic or blastic lesions are identified. ABDOMEN AND PELVIS: Liver: The contrast-enhanced liver is normal in size, contour, and attenuation. Fatty infiltration is seen adjacent to the falciform ligament. There is no intrahepatic biliary ductal dilatation. The hepatic veins and portal veins are patent. Gallbladder: Unremarkable. Spleen: Normal in size and attenuation. Pancreas: Unremarkable. Adrenal glands: A 2.8 cm indeterminant right adrenal nodule has not appreciably changed from 202. The left adrenal gland is normal in appearance. Kidneys: The contrast enhanced kidneys are normal in size and without hydronephrosis. The kidneys enhance symmetrically. A 1.4 cm cyst is noted on the right. Additional subcentimeter cortical hypodensities also likely represent cysts but are too small for definitive characterization. Abdominal vasculature: The abdominal aorta is normal in course and caliber noting moderate atherosclerotic calcification. There is a small fat-containing umbilical hernia. Stents are present within the right iliac arteries. These appear patent. Stomach and bowel: There is a small hiatal hernia. There is no bowel obstruction. The colonic wall appears diffusely thickened with mild edema indicating a nonspecific pancolitis. The appendix is well-visualized and normal. Peritoneum: There is no intraperitoneal free air or abdominal ascites. Lymphadenopathy: None. Pelvic viscera: The prostate gland is normal in size and heterogeneous in attenuation. The bladder wall appears thickened/trabeculated indicating chronic outlet obstruction. Postsurgical change is noted in the right groin. Skeletal structures: The skeletal structures are osteopenic. There is mild to moderate lumbosacral spondylosis. The lumbosacral spine, bony pelvis, and proximal femora appear intact. No lytic or blastic lesions are seen. IMPRESSION: 1. There is no acute posttraumatic intrathoracic abnormality. 2. There is no airspace consolidation, pleural effusion, or pneumothorax. 3. There is no evidence of solid organ injury in the abdomen or pelvis. 4. Findings are consistent with a nonspecific pancolitis. 5. A groundglass lesion at the right apex measuring up to 10 mm and an 8 mm subsolid nodule in the left lower lobe have increased in size dating back to 2022. Low-grade adenomatous lesions are not excluded. Nonemergent follow-up with pulmonology is recommended, as is a 6 month follow-up chest CT for reassessment. 6. An indeterminant right adrenal nodule is unchanged from 2022. 7. Cardiomegaly noting coronary artery atherosclerosis and a moderate pericardial effusion. 8. Additional findings as above. ACT 112: Positive. There are findings on this exam that require communication between the performing entity and the patient following Patient Test Result Information Act ([place] Act 112) guidelines. Electronically signed by: Redd Dunne M.D. 04/05/2025 3:[address] 04/05/25 14:25 CT SCAN OF THE CERVICAL SPINE CLINICAL HISTORY: Falls. COMPARISON STUDY: Fluoroscopic images of the cervical spine May 07, 2018. MRI of the cervical spine December 14, 2017. TECHNIQUE: CT scan of the cervical spine is performed from the skull base to the upper thoracic spine. Images are reviewed in the axial, sagittal, and coronal p lanes. IV contrast was not administered for this examination. A dose lowering technique was utilized adhering to the principles of ALARA. FINDINGS: Skeletal structures: Status post C4-C5 discectomy and fusion. There is no evidence of fracture or subluxation involving the cervical spine. Vertebral body height and alignment are maintained. The odontoid process and lateral masses are intact. The atlantoaxial articulation is preserved. The spinous processes appear intact. Moderate multilevel degenerative changes within the cervical spine are present. Soft tissues: The prevertebral and paraspinous soft tissues are within normal limits. Calvarium: The visualized calvarium at the skull base appears intact. Brain parenchyma: Partially visualized brain parenchyma at the skull base is wi thin normal limits. Lung apices: A right upper lobe subsolid pulmonary nodule is better depicted on the chest CT which will be reported separately. IMPRESSION: No acute cervical spine fracture or subluxation. ACT 112: Negative or not required by law. Electronically signed by: Shen Santos M.D. 04/05/2025 3:[address] 04/05/25 14:25 CT SCAN OF THE CHEST, ABDOMEN, AND PELVIS WITH IV CONTRAST CLINICAL HISTORY: Trauma. Falls. COMPARISON STUDY: Chest CT dated 05/08/2022. TECHNIQUE: Following the IV administration of 90 cc of Optiray 320, CT scan of the chest, abdomen, and pelvis was performed from the thoracic inlet to the proximal femora. Images are reviewed in the axial, sagittal, and coronal planes. IV contrast was administered without complication. A dose lowering technique was utilized adhering to the principles of ALARA. CT DOSE: 4107.45 mGy.cm FINDINGS: CHEST: Thyroid: Imaged portions of the thyroid gland are normal in size and attenuation. Thoracic aorta: There is mild atherosclerotic calcification of the thoracic aorta, which is normal in caliber and demonstrates standard 3-vessel arch anatomy. No dissection is seen. Pulmonary vasculature: The pulmonary trunk is normal in caliber. There are no filling defects identified in the central pulmonary vessels to indicate pulmonary embolus. Note that this examination was not protocoled for evaluation of the pulmonary arteries. Heart: The heart is enlarged noting a moderate pericardial effusion. The coronary arteries are densely calcified. Lungs and pleural spaces: There is no airspace consolidation, pleural effusion, or pneumothorax. The trachea and central airways are clear. There is a 10 mm groundglass nodule in the right apex on image #51 with a 5 mm more nodular focus. This has modestly increased in size from 05/08/2022. An 8 mm subsolid nodular opacity in the left lower lobe on image #163 is also increased in size from previous. Mediastinum: There is no mediastinal hematoma or lymphadenopathy. Archana: Clear. Axillae: There is no axillary lymphadenopathy. Bony thorax: The skeletal structures are osteopenic. The bony thorax appears intact. No lytic or blastic lesions are identified. ABDOMEN AND PELVIS: Liver: The contrast-enhanced liver is normal in size, contour, and attenuation. Fatty infiltration is seen adjacent to the falciform ligament. There is no intrahepatic biliary ductal dilatation. The hepatic veins and portal veins are patent. Gallbladder: Unremarkable. Spleen: Normal in size and attenuation. Pancreas: Unremarkable. Adrenal glands: A 2.8 cm indeterminant right adrenal nodule has not appreciably changed from 2022. The left adrenal gland is normal in appearance. Kidneys: The contrast enhanced kidneys are normal in size and without hydronephrosis. The kidneys enhance symmetrically. A 1.4 cm cyst is noted on the right. Additional subcentimeter cortical hypodensities also likely represent c ysts but are too small for definitive characterization. Abdominal vasculature: The abdominal aorta is normal in course and caliber noting moderate atherosclerotic calcification. There is a small fat-containing umbilical hernia. Stents are present within the right iliac arteries. These appear patent. Stomach and bowel: There is a small hiatal hernia. There is no bowel obstruction. The colonic wall appears diffusely thickened with mild edema indicating a nonspecific pancolitis. The appendix is well-visualized and normal. Peritoneum: There is no intraperitoneal free air or abdominal ascites. Lymphadenopathy: None. Pelvic viscera: The prostate gland is normal in size and heterogeneous in attenuation. The bladder wall appears thickened/trabeculated indicating chronic outlet obstruction. Postsurgical change is noted in the right groin. Skeletal structures: The skeletal structures are osteopenic. There is mild to moderate lumbosacral spondylosis. The lumbosacral spine, bony pelvis, and proximal femora appear intact. No lytic or blastic lesions are seen. IMPRESSION: 1. There is no acute posttraumatic intrathoracic abnormality. 2. There is no airspace consolidation, pleural effusion, or pneumothorax. 3. There is no evidence of solid organ injury in the abdomen or pelvis. 4. Findings are consistent with a nonspecific pancolitis. 5. A groundglass lesion at the right apex measuring up to 10 mm and an 8 mm subsolid nodule in the left lower lobe have increased in size dating back to 2022. Low-grade adenomatous lesions are not excluded. Nonemergent follow-up with pulmonology is recommended, as is a 6 month follow-up chest CT for reassessment. 6. An indeterminant right adrenal nodule is unchanged from 2022. 7. Cardiomegaly noting coronary artery atherosclerosis and a moderate pericardial effusion. 8. Additional findings as above. ACT 112: Positive. There are findings on this exam that require communication between the performing entity and the patient following Patient Test Result [place] Act ([place] Act 112) guidelines. Electronically signed by: Redd Dunne M.D. 04/05/2025 3:32 PM Chest X-Ray 04/05/25 14:25 SINGLE VIEW CHEST CLINICAL HISTORY: Trauma FINDINGS: An AP, portable, semierect chest radiograph is compared to study dated 01/23/2018 and correlated with chest CT dated 05/08/2022. The examination is degraded by portable technique and apical lordotic positioning. The heart is enlarged. The pulmonary vasculature is noncongested. The lungs and pleural spaces are clear. No pneumothorax is seen. The skeletal structures are osteopenic. The bony thorax is grossly intact. Degenerative change is seen in the shoulders. IMPRESSION: Cardiomegaly with no acute cardiopulmonary abnormality identified. ACT 112: Negative or not required by law. Electronically signed by: Redd Dunne M.D. 04/05/2025 2:[address] 04/05/25 14:25 CT SCAN OF THE BRAIN WITHOUT IV CONTRAST CLINICAL HISTORY: Falls. COMPARISON STUDY: None. TECHNIQUE: Unenhanced axial CT scan of the brain was performed from the vertex to the skull base. A dose lowering technique was utilized adhering to the principles of ALARA. FINDINGS: Brain parenchyma: No acute intracranial hemorrhage, midline shift or mass effect is present. Blanco-white matter differentiation is preserved. There are no extra- axial fluid collections. There are no findings to suggest acute dural sinus thrombosis or acute territorial infarct. Ventricles, sulci, cisterns: There is no hydrocephalus. The basal cisterns are patent. Calvarium: No calvarial fractures. Sinuses and mastoids: The visualized paranasal sinuses are clear. The mastoid air cells are well pneumatized. Orbits: The bony orbits are grossly intact. IMPRESSION: 1. No acute intracranial findings. 2. No calvarial fractures. ACT 112: Negative or not required by law. Electronically signed by: Shen Santos M.D. 04/05/2025 3:16 PM Medications Administered Diltiazem HCl 125 mg/ Dextrose 125 mls @ 5 mls/hr IV .Q24H [facility]; Protocol Stop: 05/05/25 15:44 Last Titration: 04/05/25 16:47 Dose: 10 mg/hr, 10 mls/hr Documented By: BHARAT Co-signed By: KYRIE Admin: 04/05/25 16:14 Dose: 5 mg/hr, 5 mls/hr Documented By: BHARAT Co-signed By: OSVALDO Discontinued Medications Diltiazem HCl (Diltiazem Hcl 5 Mg/Ml 5 Ml Vial) 10 mg IV NOW STA Stop: 04/05/25 15:46 Last Admin: 04/05/25 16:05 Dose: 10 mg Documented By: BHARAT Co-signed By: OSVALDO Sodium Chloride (Nss) 1,000 mls @ 999 mls/hr IV .Q1H1M ONE Stop: 04/05/25 15:27 Last Infusion: 04/05/25 15:35 Dose: Infused Documented By: Admin: 04/05/25 14:34 Dose: 999 mls/hr Documented By: NORMAN Sodium Chloride (Nss) 1,000 mls @ 999 mls/hr IV .Q1H1M ONE Stop: 04/05/25 16:25 Last Infusion: 04/05/25 16:32 Dose: Infused Documented By: Admin: 04/05/25 15:31 Dose: 999 mls/hr Documented By: BHARAT Ioversol (Optiray 320 100ml) 90 ml IV ONCE ONE Stop: 04/05/25 14:51 Last Admin: 04/05/25 14:51 Dose: 90 ml Documented By: NILS Metoprolol Tartrate (Metoprolol Tartrate 1 Mg/Ml Vial) 5 mg IV NOW STA Stop: 04/05/25 14:31 Last Admin: 04/05/25 14:33 Dose: 5 mg Documented By: NORMAN Metoprolol Tartrate (Metoprolol Tartrate 1 Mg/Ml Vial) Confirm Administered Dose 5 mg IV .STK-MED ONE Stop: 04/05/25 14:32 Last Admin: 04/05/25 14:36 Dose: Not Given Documented By: NORMAN Metoprolol Tartrate (Metoprolol Tartrate 1 Mg/Ml Vial) 5 mg IV NOW STA Stop: 04/05/25 14:40 Last Admin: 04/05/25 14:41 Dose: 5 mg Documented By: NORMAN Metoprolol Tartrate (Metoprolol Tartrate 1 Mg/Ml Vial) 5 mg IV NOW STA Stop: 04/05/25 14:54 Last Admin: 04/05/25 15:12 Dose: 5 mg Documented By: BHARAT Supervising Physician Co-Signing Physician Notes Attending Addendum: Case reviewed with the advanced practitioner. I have personally performed a history and physical examination on the patient. I have reviewed the advanced practitioner's documentation on the date of service referenced in note, and I agree with, and take responsibility for the plan of care. please refer to her notes for full details patient seen and examined, records reviewed by myself as well on exam, patient Seen resting in bed, comfortable, in good spirits Somewhat weak looking States he feels okay overall Denies active chest pain, shortness of breath, palpitations during my exam Admits to having some dizziness and nausea has some mild lower abdominal discomfort, admits to having some diarrhea with blood several times this morning no other symptoms VS noted and reviewed oriented x3, not in distress, speaks in sentences with no effort nor accessory muscle use (+) dry oral mucosa Tachycardic, irregularly irregular rhythm, no murmurs clear breath sounds bilaterally non distended, soft, nontender no bipedal edema, erythema, warmth no neuro deficits all labs, imaging noted and reviewed ASSESSMENT AND PLAN> New onset atrial fibrillation with RVR In the setting of chronic diarrheal illness Cardizem drip ordered however patient still remained in RVR heart rate 170s, blood pressure trending down to systolic 90s Discussed with gum worker Dr. Wiggins, plans for cardioversion and patient will be admitted to the ICU [id number] score is 4, anticoagulation contraindicated at this point in light of persistent GI bleed Echocardiogram, TSH ordered Chronic Diarrheal Illness outpatient stool infectious workup negative, also patient has completed 10-day course of Cipro Flagyl, however still having persistent diarrhea with bright red blood per rectum CT abdomen and pelvis showing pancolitis Stool PCR panel, C. difficile, Giardia ordered GI consulted other chronic medical conditions: Diabetes type 2 PAD status post iliac stent on aspirin and Plavix other diagnoses and plan of care as per advanced practitioner's notes I spent a total of 45 minutes coordinating, documenting, and providing care for this patient, excluding time spent in the performance of separately billed services or time spent by another provider/QHP. Josiah Thomas MD
[2025-04-05 17:12] LABS: Magnesium 2.0 mg/dl (1.7-2.4)
[2025-04-05] MEDS: SODIUM CHLORIDE 0.9% 1,000 ML IV SCH (17:24)
[2025-04-05 18:09] LABS: Anion Gap 19 (3-11); Blood Urea Nitrogen 22 mg/dl (6-23); Calcium 8.7 mg/dl (8.6-10.3); Carbon Dioxide 19 mmol/L (21-32); Chloride 93 mmol/L (98-107); Glucose 118 mg/dl (70-99(Fasting)); Potassium 3.6 mmol/L (3.5-5.1); Sodium 131 mmol/L (136-145)
--- NOTE | 2025-04-05 18:33 | Critical Care Consultation ---
Date of Consultation April 05, 2025 Assessment & Plan (1) Acute hyponatremia: (2) High anion gap metabolic acidosis: (3) RIANA (acute kidney injury): (4) Narrow complex tachycardia: (5) Hypotension: (6) Peripheral vascular disease: (7) Hematochezia: (8) Chronic diarrhea: (9) Hyperlipidemia: (10) Multiple pulmonary nodules: Plan Reason Critically Ill: 69-year-old male presented to the ED with complaints of generalized weakness and falls. He was found to be in irregular tachycardic rhythm narrow complex. Sent to the ICU as he was hypotensive on Cardizem drip Past medical history: Type 2 diabetes, chronic diarrhea and rectal bleeding, peripheral vascular disease s/p iliac stent Neuro - [facility] ICU: Negative Cardiac - -- Narrow complex tachycardia I am not sure if there is A-fib with RVR or atrial tachycardia given that the heart rate was in the 180s to even low 200s Patient was successfully cardioverted in the ED. EKG post cardioversion showed sinus rhythm with frequent PACs as well as PVCs. --Peripheral vascular disease S/p iliac stent On Plavix 75 as well as aspirin at home Respiratory - -- Saturating well on room air --Ex-smoker [id number] smoking history --Multiple pulmonary nodules Largest ground glass nodule in the right upper lobe 10 mm Will need to be under surveillance for at least 5 years GI - -- Chronic diarrhea with hematochezia Follow-up stool studies, C. difficile RENAL/LYTES - -- HAGMA Delta-delta: 1.5, seems to be pure anion gap The patient is likely complicated given the patient has been having diarrhea which will cause metabolic alkalosis Follow up serum osm, urine osm, urine lytes Monitor --Hyponatremia Patient seems to be hypovolemic to euvolemic Follow-up serum osmolality and urine osmolality along with urine lites -- Monitor BUNs/creatinine ENDO - -- Diabetes type 2 ICU hypoglycemia protocol HEME - -- Microcytic anemia Monitor H&H --Thrombocytosis Likely reactive Continue to trend ID - -- Chronic diarrhea Stool BioFire has been ordered --Prophylaxis VTE: Heparin drip GI: None Lines: Peripheral Diet: Cardiac Plan: Strict in and out Follow-up TSH Follow-up urine lites, serum osmolality and urine osmolality Will start the patient on cefepime as well as Flagyl to cover for intra- abdominal source of infection Follow-up stool BioFire Follow-up serum lactate I have personally spent 58 minutes of critical care time in the direct management of this patient. This is a life/limb threatening event. This includes time spent evaluating patient, direct bedside care, chart review, placing orders, interpretation of diagnostic studies, discussion with consultants, patient, and family members, as well as other required patient management activities. This time is exclusive of all separately billable procedures, and teaching time and separate from and in addition to any other critical care service time. History of Present Illness History of Present Illness 69-year-old male presented to the ED with complaints of generalized weakness and falls. He was found to be in irregular tachycardic rhythm narrow complex. Sent to the ICU as he was hypotensive on Cardizem drip Past medical history: Type 2 diabetes, chronic diarrhea and rectal bleeding, peripheral vascular disease s/p iliac stent At the time of examination patient's heart rate was in the 170s-180s, irregular. He was on 10 mg of Cardizem drip, systolic blood pressure was in the low 90s started to. He was complaining of dizziness No nausea or vomiting Denied any chest pain or any abdominal pain Fahrenheit saturation was 93-94% on room air Patient got 2 L of bolus fluid and he was on 75 mL an hour. I requested the nurse to give 1 L of bolus on top of that Patient has been complaining of diarrhea which has been going on for greater part of months to 1 year He has blood in the stools for approximately a year that has not changed with diarrhea. It just got worse in the recent past. Patient is unsure if he has any history of irregular rhythm like A-fib or a flutter he does have history of atrial tachycardia and takes verapamil at home Denies any fever or chills No night sweats, no unintentional weight loss Social history: Quit in 2014, approximately [id number] smoking history No history of lung cancer in the family Allergies Allergy/AdvReac Type Severity Reaction Status Date / Time Penicillins Allergy Mild MOUTH SORES Verified 07/05/21 10:16 Home Medications Medication Instructions Recorded Confirmed Type aspirin 81 mg tablet,delayed 81 mg PO QDD 01/20/18 04/05/25 History release magnesium oxide 400 mg PO QDD 01/20/18 04/05/25 History metformin 500 mg tablet 1,000 mg PO BID 01/20/18 04/05/25 History cyanocobalamin (vitamin B-12) 1,000 mcg sublingual DAILY 07/05/21 04/05/25 History 1,000 mcg sublingual tablet empagliflozin 25 mg tablet 25 mg PO DAILY 07/05/21 04/05/25 History (Jardiance) verapamil 120 mg tablet,extended 120 mg PO QPM 07/05/21 04/05/25 History release clopidogrel 75 mg tablet 75 mg PO DAILY 04/05/25 04/05/25 History rosuvastatin 20 mg tablet 20 mg PO DAILY 04/05/25 04/05/25 History semaglutide 1 mg/dose (4 mg/3 mL) 1 mg subcut WK 04/05/25 04/05/25 History subcutaneous pen injector (Ozempic) Patient History Medical History CAD (coronary artery disease) Gout NSVT (nonsustained ventricular tachycardia) PAD (peripheral artery disease) Pericardial effusion HX OF; FOLLOWS WITH CARDIO PVCs (premature ventricular contractions) Obesity Degenerative disc disease CERVICAL Diabetes mellitus, type 2 Hypertension Hyperlipidemia Surgical History S/P cervical spinal fusion Status post insertion of iliac artery stent History of cardiac cath History of colonoscopy History of tonsillectomy Family History (Updated 04/05/25 @ 17:50 by Janine Andrews PA-C) Mother Myocardial infarction at 64 Brother Myocardial infarction Father Prostate cancer Grandfather (Paternal) Prostate cancer Social History Smoking Status: Former smoker Tobacco Type: Cigarettes Do You Dip or Chew Tobacco: No; Hx Alcohol Use: No Hx Substance Use: No Preferred Language: Estonian Communication Ability: Effective Visual Impairment: No Limitations [place] Knitter Required: No Beliefs That Will Affect Care: None Current Living Situation: Alone Feels Safe at Home: Yes Assistive Devices: None Review of Systems 2 Review of Systems: All systems reviewed & are unremarkable except as noted in HPI & below Physical Exam 2 Physical Exam: Constitutional: No acute distress HEENT: EOMI, PERRLA Respiratory system: Good air entry bilaterally, no wheeze, no rhonchi, no crackles CVS: S1-S2 positive, no murmurs or gallops, tachycardia Abdomen: Soft, nontender, nondistended, hyperactive bowel sounds x 4 Extremities: +2 pulses bilaterally radialis/ dorsalis pedis, no cyanosis, no edema Neuro: Awake alert oriented x3 Psych: Normal mood and affect G/U: No Ware Skin: no rashes, warm and dry Lymphatic: no cervical or axillary lymphadenopathy Results & Data Results & Data Vital Signs (Past 12 Hours) Vital Signs Temp Pulse Pulse Resp BP BP Pulse Ox 04/05/25 18:24 181 H 04/05/25 18:00 36.9 C 178 H 18 90/67 L 94 04/05/25 17:32 186 H 18 97/77 L 100 04/05/25 17:00 36.8 C 183 H 18 95/72 L 99 04/05/25 16:34 164 H 18 101/73 94 04/05/25 16:12 170 H 18 146/90 H 100 04/05/25 15:22 36.9 C 164 H 18 96/77 L 100 04/05/25 15:16 173 H 04/05/25 15:15 173 H 04/05/25 15:12 159 H 114/89 04/05/25 14:41 174 H 134/82 04/05/25 14:33 178 H 17 117/86 90 04/05/25 14:31 164/123 H 04/05/25 14:30 174 H 21 04/05/25 14:29 161 H 04/05/25 14:28 36.7 C 183 H 20 175/97 H 100 04/05/25 14:28 183 H 17 100 04/05/25 14:28 36.7 C 183 H 21 175/97 H 100 04/05/25 14:25 175/97 H 04/05/25 14:13 36.5 C 91 H 20 135/81 95 O2 Del Method O2 Flow Rate 04/05/25 18:24 04/05/25 18:00 Room Air 04/05/25 17:32 Room Air 04/05/25 17:00 Room Air 04/05/25 16:34 Room Air 04/05/25 16:12 Room Air 04/05/25 15:22 Room Air 04/05/25 15:16 04/05/25 15:15 04/05/25 15:12 04/05/25 14:41 04/05/25 14:33 Room Air 04/05/25 14:31 04/05/25 14:30 04/05/25 14:29 04/05/25 14:28 Room Air 04/05/25 14:28 Room Air 04/05/25 14:28 Room Air 0 04/05/25 14:25 04/05/25 14:13 Room Air Laboratory Results 04/05/25 14:27 04/05/25 17:25 Coding Level of Care Code 08322 CRITICAL CARE 1ST 30-74M Diagnoses Acute hyponatremia E87.1 High anion gap metabolic acidosis E87.29 RIANA (acute kidney injury) N17.9 Narrow complex tachycardia I47.19 Hypotension I95.9 Peripheral vascular disease I73.9 Hematochezia K92.1 Chronic diarrhea K52.9 Hyperlipidemia E78.5 Multiple pulmonary nodules R91.8
--- NOTE | 2025-04-05 18:53 | Procedure Note ---
Procedure Note Date of Service April 05, 2025 CARDIOVERSION PROCEDURE NOTE: Electrical Cardioversion Performed by: Jairo Benoit MD Indication: Unstable tachycardia, atrial tachycardia versus A-fib [place] Protocol: a time out was performed and the correct patient and procedure were verified Consent: written consent obtained Sedation: 3 mg of midazolam and 75 mcg of fentanyl Patient was placed on continuous cardiac monitoring and continuous pulse oximetry. Supplemental oxygen was administered via nasal cannula. Electrodes were placed in an anterior lateral fashion. After appropriate level of sedation was achieved, synchronized cardioversion was performed at 150 joules with successful conversion to sinus rhythm with PACs and PVCs Complications: None, patient tolerated the procedure well [facility] Procedure Codes (Charges) Resuscitation Resuscitation: 74541 Cardioversion electric, ext Coding CPT Codes Resuscitation - Resuscitation: 18636 Cardioversion electric, ext ([id number]) Additional Codes Date of Service (PG.SURGERY)
[2025-04-05] MEDS: MIDAZOLAM HCL 5 MG/ML 2ML VIAL ONE (18:58)
[2025-04-05] MEDS: STAT IV Infusion **Titration per Protocol STA (19:12)
[2025-04-05 19:15] LABS: Thyroid Stimulating Hormone 1.109 uIu/ml (0.300-4.500)
[2025-04-05] MEDS: CEFEPIME 2000MG 2,000 MG/20 ML SYR IV SCH (19:25)
[2025-04-05] MEDS ORDERED: ACETAMINOPHEN 325 MG TAB PO PRN (20:05)
[2025-04-05] MEDS: HEPARIN 25000 UNIT/500 ML D5W 25,000 UNITS/500 ML BAG IV SCH (20:17)
[2025-04-05] MEDS: metroNIDAZOLE 500 MG/100 ML BAG IV SCH (20:18)
[2025-04-05] MEDS: Heparin IV Adult Wt-Based Standard w/ INITIAL Bolus Protocol IV STA (20:20)
[2025-04-05] MEDS: HEPARIN SOD (PORCINE) 1000 UNIT/ML IV ONE (20:20)
[2025-04-06 00:16] LABS: Appearance Urine Clear (Clear); Bacteria Urine Automated None Seen (None Seen); Cast Urine Automated 0-2 /lpf (0-2); Epithelial Cell Urine Auto 0-2 /hpf (0-2); Glucose Urine UA 3+ (Negative); RBC Urine Automated 0-2 /hpf (0-2); WBC Urine Automated 0-5 /hpf (0-5)
[2025-04-06 03:15] LABS: Anion Gap 14.0 (3-11); Blood Urea Nitrogen 23.0 mg/dl (6-23); Calcium 8.1 mg/dl (8.6-10.3); Carbon Dioxide 22.0 mmol/L (21-32); Chloride 97.0 mmol/L (98-107); Creatinine Clr Calc Pharmacy 84.1 ml/min; Glucose 96.0 mg/dl (70-99(Fasting)); Magnesium 1.8 mg/dl (1.7-2.4); Potassium 3.6 mmol/L (3.5-5.1); Sodium 133.0 mmol/L (136-145)
[2025-04-06 03:20] LABS: Hematocrit (blood only) 37.4 % (42.0-52.0); Hemoglobin 11.5 g/dL (14.0-18.0); Immature Granulocytes # (auto) 0.05 K/uL (0.01-0.20); Immature Granulocytes % (auto) 0.8 %; Mean Corpuscular Hemoglobin 22.9 pg (25.0-34.0); Mean Corpuscular Volume 74.5 fL (80.0-100.0); Platelet Count 369 K/uL (130-400); RDW Standard Deviation 46.3 fL (36.4-46.3); Red Blood Count 5.02 M/uL (4.70-6.10); White Blood Count 6.41 K/ul (4.8-10.8)
[2025-04-06 03:23] LABS: ANTI-Xa, UFH(UnfractionatedHep 0.28 IU/ml (0.3-0.7)
[2025-04-06] MEDS ORDERED: MAG SULFATE 50% 1GM/2ML VIAL IV ONE (07:01)
--- NOTE | 2025-04-06 07:39 | Critical Care Progress Note ---
Date of Service April 06, 2025 Assessment & Plan (1) Acute hyponatremia: (2) High anion gap metabolic acidosis: (3) RIANA (acute kidney injury): (4) Narrow complex tachycardia: (5) Hypotension: (6) Peripheral vascular disease: (7) Hematochezia: (8) Chronic diarrhea: (9) Hyperlipidemia: (10) Multiple pulmonary nodules: Plan Reason Critically Ill: 69-year-old male presented to the ED with complaints of generalized weakness and falls. He was found to be in irregular tachycardic rhythm narrow complex. Sent to the ICU as he was hypotensive on Cardizem drip Past medical history: Type 2 diabetes, chronic diarrhea and rectal bleeding, peripheral vascular disease s/p iliac stent Neuro - [facility] ICU: Negative Cardiac - -- Narrow complex tachycardia I am not sure if there is A-fib with RVR or atrial tachycardia with PACs and PVC given that the heart rate was in the 180s to even low 200s The likelihood of it being multifocal atrial tachycardia with PACs and PAC VCs as high Patient was successfully cardioverted in the ED on 04/05/2025 EKG post cardioversion showed sinus rhythm with frequent PACs as well as PVCs. TSH 1.1 2D echo 04/06/2025: EF 55-60%, grade 1 diastolic dysfunction, moderate aortic valve sclerosis, small circumferential pericardial effusion, moderate concentric LVH --Peripheral vascular disease S/p iliac stent On Plavix 75 as well as aspirin at home -- NSVT on CCB, will consider adding beta-blockers Cardiology on board Respiratory - -- Saturating well on room air --Ex-smoker [id number] smoking history --Multiple pulmonary nodules Largest ground glass nodule in the right upper lobe 10 mm Will need to be under surveillance for at least 5 years GI - -- Chronic diarrhea with hematochezia Follow-up stool studies, C. difficile RENAL/LYTES - -- HAGMA Delta-delta: 1.5, seems to be pure anion gap The patient is likely complicated given the patient has been having diarrhea which will cause metabolic alkalosis Urinary gap Positive, +3 ketones Euglycemic ketoacidosis a possibility especially patient being on Ozempic --Hyponatremia Patient seems to be hypovolemic Serum osmolality 288 which is within normal limit, urine osmole 8668 Urine sodium < 10 -- Monitor BUNs/creatinine ENDO - -- Diabetes type 2 ICU hypoglycemia protocol HEME - -- Microcytic anemia Monitor H&H --Thrombocytosis Likely reactive Continue to trend ID - -- Chronic diarrhea Stool BioFire has been ordered --Prophylaxis VTE: Heparin drip on hold GI: None Lines: Peripheral Diet: Cardiac Plan: In/out: +3.9 L, urine output 850 mL TSH within normal limit Potassium as well as magnesium being replaced There has been drop in hemoglobin compared to the time of presentation, patient is also positive for liters which could be one of the reasons. Heparin drip is on hold right now. Will repeat H&H later today. I am still not certain if the patient has A-fib versus multifocal atrial tachycardia with frequent PACs and PVCs. Beta-blockers could be thought of on top of verapamil or in substitute for CCB's Cardiology has been consulted, will defer to their expertise regarding patient needing anticoagulation if he has A-fib Continue with cefepime and Flagyl to cover for intra-abdominal source of infection Follow-up stool BioFire Hemodynamically stable to be downgraded to telemetry floor Patient will need a repeat CAT scan of the chest in approximately a year for the pulmonary nodules GI has been consulted for diarrhea Case discussed with primary team as well as cardiology I spent more than 50 minutes looking in the chart, images, discussing the plan of care with the patient, RN as well as primary team Please note the above document was generated using voice recognition software. It may contain grammatical, syntax or spelling errors.Any formal questions or concerns about the content, text or information contained within the body of this dictation should be directly addressed to the provider for clarification. Admission and Anticipated Discharge Date Admission Date: April 05, 2025 Subjective Patient seen and examined at bedside. No acute distress Did have a run of NSVT overnight, 17 beats Heart rate was ranging between high 90s to low 110s Systolic blood pressure in the 140s. He was on diltiazem 15 at the time of examination Did not have any bowel movement since coming to the hospital Denies any nausea or vomiting, no abdominal discomfort No chest pain, no shortness of breath. Dizziness has resolved. Review of Systems 2 Review of Systems: All systems reviewed & are unremarkable except as noted in Subjective Physical Exam 2 Physical Exam: Constitutional: No acute distress HEENT: EOMI, PERRLA Respiratory system: Good air entry bilaterally, no wheeze, no rhonchi, no crackles CVS: S1-S2 positive, no murmurs or gallops, tachycardia Abdomen: Soft, nontender, nondistended, hyperactive bowel sounds x 4 Extremities: +2 pulses bilaterally radialis/ dorsalis pedis, no cyanosis, no edema Neuro: Awake alert oriented x3 Psych: Normal mood and affect G/U: No Ware Skin: no rashes, warm and dry Lymphatic: no cervical or axillary lymphadenopathy Results & Data Results & Data Vital Signs (Past 12 Hours) Vital Signs Temp Pulse Pulse Resp BP BP Pulse Ox 04/06/25 06:00 123/68 04/06/25 06:00 132 H 18 93 04/06/25 05:30 120 H 18 98 04/06/25 05:00 36.7 C 108 H 18 97 04/06/25 05:00 125/61 04/06/25 05:00 125/61 04/06/25 04:30 102 H 22 98 04/06/25 04:02 95 H 22 98 04/06/25 04:00 104/71 04/06/25 04:00 104/71 04/06/25 03:59 121 H 22 98 04/06/25 03:32 108 H 19 96 04/06/25 03:02 112 H 16 98 04/06/25 03:00 119/72 04/06/25 02:59 102 H 18 97 04/06/25 02:32 95 H 19 98 04/06/25 02:31 111/65 04/06/25 02:31 111/65 04/06/25 02:29 102 H 23 99 04/06/25 02:02 112 H 17 98 04/06/25 02:00 114/56 L 04/06/25 02:00 114/56 L 04/06/25 01:59 119 H 18 100 04/06/25 01:30 107/67 04/06/25 01:30 107/67 04/06/25 01:30 107/67 04/06/25 01:30 107/67 04/06/25 01:30 107/67 04/06/25 01:29 114 H 15 87 L 04/06/25 01:00 118 H 17 99 04/06/25 01:00 107/60 04/06/25 00:30 109 H 11 L 99 04/06/25 00:30 104/77 04/06/25 00:26 108 H 04/06/25 00:21 96 H 17 98 04/06/25 00:12 117 H 19 99 04/06/25 00:00 121/72 04/06/25 00:00 121/72 04/06/25 00:00 84 18 98 04/06/25 00:00 109 H 04/05/25 23:51 117 H 29 H 97 04/05/25 23:42 123 H 25 H 98 04/05/25 23:30 94 H 24 99 04/05/25 23:30 131/74 04/05/25 23:30 131/74 04/05/25 23:21 108 H 21 98 04/05/25 23:12 115 H 20 99 04/05/25 23:00 113 H 20 100 04/05/25 23:00 119/71 04/05/25 22:51 88 18 97 04/05/25 22:42 110 H 6 L 98 04/05/25 22:30 106 H 0 L 98 04/05/25 22:30 113/64 04/05/25 22:30 113/64 04/05/25 22:30 113/64 04/05/25 22:21 110 H 4 L 97 04/05/25 22:12 109 H 6 L 98 04/05/25 22:01 101/59 L 04/05/25 22:01 101/59 L 04/05/25 22:00 114 H 1 L 97 04/05/25 21:51 115 H 6 L 98 04/05/25 21:42 128 H 17 97 04/05/25 21:30 94 H 25 H 99 04/05/25 21:30 103/60 04/05/25 21:21 113 H 16 98 04/05/25 21:12 99 H 19 99 04/05/25 21:01 103/49 L 04/05/25 21:01 103/49 L 04/05/25 21:00 113 H 19 99 04/05/25 20:51 111 H 26 H 96 04/05/25 20:45 109 H 27 H 100 04/05/25 20:45 112/76 04/05/25 20:45 112/76 04/05/25 20:45 112/76 04/05/25 20:42 111 H 18 100 12/15/25 20:30 119 H 30 H 99 04/05/25 20:30 95/57 L 04/05/25 20:30 95/57 L 04/05/25 20:30 95/57 L 04/05/25 20:30 95/57 L 04/05/25 20:30 95/57 L 04/05/25 20:21 98 H 19 100 04/05/25 20:15 104 H 20 100 04/05/25 20:15 92/60 L 04/05/25 20:15 92/60 L 04/05/25 20:15 92/60 L 04/05/25 20:15 92/60 L 04/05/25 20:12 109 H 19 100 04/05/25 20:03 117/73 04/05/25 20:03 117/73 04/05/25 20:03 117/73 04/05/25 20:03 105 H 26 H 98 04/05/25 20:00 100 H 16 04/05/25 20:00 36.7 C 119 H 22 117/73 97 04/05/25 19:45 O2 Del Method 04/06/25 06:00 04/06/25 06:00 04/06/25 05:30 04/06/25 05:00 04/06/25 05:00 04/06/25 05:00 04/06/25 04:30 04/06/25 04:02 04/06/25 04:00 04/06/25 04:00 04/06/25 03:59 04/06/25 03:32 04/06/25 03:02 04/06/25 03:00 04/06/25 02:59 04/06/25 02:32 04/06/25 02:31 04/06/25 02:31 04/06/25 02:29 04/06/25 02:02 04/06/25 02:00 04/06/25 02:00 04/06/25 01:59 04/06/25 01:30 04/06/25 01:30 04/06/25 01:30 04/06/25 01:30 04/06/25 01:30 04/06/25 01:29 04/06/25 01:00 04/06/25 01:00 04/06/25 00:30 04/06/25 00:30 04/06/25 00:26 04/06/25 00:21 04/06/25 00:12 04/06/25 00:00 04/06/25 00:00 04/06/25 00:00 04/06/25 00:00 04/05/25 23:51 04/05/25 23:42 04/05/25 23:30 04/05/25 23:30 04/05/25 23:30 04/05/25 23:21 04/05/25 23:12 04/05/25 23:00 04/05/25 23:00 04/05/25 22:51 04/05/25 22:42 04/05/25 22:30 04/05/25 22:30 04/05/25 22:30 04/05/25 22:30 04/05/25 22:21 04/05/25 22:12 04/05/25 22:01 04/05/25 22:01 04/05/25 22:00 04/05/25 21:51 04/05/25 21:42 04/05/25 21:30 04/05/25 21:30 04/05/25 21:21 04/05/25 21:12 Room Air 04/05/25 21:01 04/05/25 21:01 04/05/25 21:00 04/05/25 20:51 04/05/25 20:45 04/05/25 20:45 04/05/25 20:45 04/05/25 20:45 04/05/25 20:42 04/05/25 20:30 04/05/25 20:30 04/05/25 20:30 04/05/25 20:30 04/05/25 20:30 04/05/25 20:30 04/05/25 20:21 04/05/25 20:15 04/05/25 20:15 04/05/25 20:15 04/05/25 20:15 04/05/25 20:15 04/05/25 20:12 04/05/25 20:03 04/05/25 20:03 04/05/25 20:03 04/05/25 20:03 04/05/25 20:00 04/05/25 20:00 Room Air 04/05/25 19:45 Room Air Laboratory Results 04/06/25 02:40 04/06/25 02:40 Coding Level of Care Code 08862 SUB INP/OBS CARE 3/50MIN Diagnoses Acute hyponatremia E87.1 High anion gap metabolic acidosis E87.29 RIANA (acute kidney injury) N17.9 Narrow complex tachycardia I47.19 Hypotension I95.9 Peripheral vascular disease I73.9 Hematochezia K92.1 Chronic diarrhea K52.9 Hyperlipidemia E78.5 Multiple pulmonary nodules R91.8
[2025-04-06] MEDS: ROSUVASTATIN CALCIUM 20 MG TAB PO SCH (08:12)
[2025-04-06] MEDS: POTASSIUM CHLORIDE / WTR 10 MEQ/100 ML PLCT IV SCH (08:12)
[2025-04-06] MEDS: MAGNESIUM SULFATE / D5W 1 GM/100 ML BAG IV SCH (08:12)
[2025-04-06 08:42] LABS: Iron 13.0 mcg/dl (35-175); Total Iron Binding Cap Calc 269.0 mcg/dl (250-450); Transferrin 192.0 mg/dl (200-360); Transferrin (FE) Percent Satur 5.0 % (20-50)
--- NOTE | 2025-04-06 09:13 | XCELERA ---
[id number] \\[id number]
--- NOTE | 2025-04-06 09:21 | Cardiology Consultation ---
Date of Consultation April 06, 2025 Assessment & Plan (1) Narrow complex tachycardia: (2) Dehydration: (3) RIANA (acute kidney injury): (4) Peripheral vascular disease: Plan Narrow complex tachycardia patient is a 69-year-old male with known atrial and ventricular arrhythmias presenting with extended illness of several months in duration with increasing frequency diarrhea and hematochezia with fecal urgency clinical course complicated by dizziness and falls Patient presented with electrolyte disturbance and narrow complex tachycardia with rapid ventricular response hemodynamically unstable. Patient underwent appropriate synchronized electrical cardioversion and cont inues to demonstrate episodes of multifocal atrial tachycardia. Echocardiogram without acute change from prior studies with preserved LV systolic function no significant valvular disease, chronic small nonhemodynamic pericardial effusion Recommendations: Begin beta-jenn therapy with metoprolol to tartrate 25 every 6 hours. Previously on verapamil though current rhythm more likely to be respon sive to beta-jenn therapies Discontinue IV diltiazem Continue to treat electrolyte disturbances, keep potassium greater than 4 Refer for GI evaluation History of Present Illness Reason for Consultation: Atrial fibrillation/atrial tachycardia with rapid ventricular response Attending Physician: Otis Bryant MD History of Present Illness Patient is a 69-year-old male with known cardiac concerns 1. Moderate nonobstructive coronary artery disease 2. Paroxysmal supraventricular tachycardia and nonsustained ventricular tachycardia 3. Hypertension 4. Hyperlipidemia 5. Atherosclerotic peripheral vascular disease status post intervention right common iliac and femoral artery August 2022, April 2023 for limiting claudication 6. Chronic small pericardial effusion 7. Type 2 diabetes mellitus Patient presents this admission noting several months history of diarrhea and hematochezia, fecal urgency recently associated dizziness on standing and falls. Sought urgent care evaluation on 03 24 and began on antibiotic therapies for pancolitis. Presents now noting poor oral intake dizziness lightheadedness and near syncope on standing with multiple falls no sense of tachypalpitations but sought ER evaluation where he is found to be in a narrow complex tachycardia with rapid rate. Hemodynamically unstable and patient underwent synchronized electrical cardioversion with return to sinus tachycardic/multifocal atrial tachycardia. Patient unaware sense of tachycardia or racing heart rhythms. Notes no complete loss of consciousness with falls but notes dizzy when standing quickly complicated by fecal urgency, diarrhea Patient maintained on IV diltiazem overnight being treated for dehydration or electrolyte deficiency. GI evaluation pending Allergies Allergy/AdvReac Type Severity Reaction Status Date / Time Penicillins Allergy Mild MOUTH SORES Verified 07/05/21 10:16 Home Medications Medication Instructions Recorded Confirmed Type aspirin 81 mg tablet,delayed 81 mg PO QDD 01/20/18 04/05/25 History release magnesium oxide 400 mg PO QDD 01/20/18 04/05/25 History metformin 500 mg tablet 1,000 mg PO BID 01/20/18 04/05/25 History cyanocobalamin (vitamin B-12) 1,000 mcg sublingual DAILY 07/05/21 04/05/25 History 1,000 mcg sublingual tablet empagliflozin 25 mg tablet 25 mg PO DAILY 07/05/21 04/05/25 History (Jardiance) verapamil 120 mg tablet,extended 120 mg PO QPM 07/05/21 04/05/25 History release clopidogrel 75 mg tablet 75 mg PO DAILY 04/05/25 04/05/25 History rosuvastatin 20 mg tablet 20 mg PO DAILY 04/05/25 04/05/25 History semaglutide 1 mg/dose (4 mg/3 mL) 1 mg subcut WK 04/05/25 04/05/25 History subcutaneous pen injector (Ozempic) Patient History Medical History CAD (coronary artery disease) Gout NSVT (nonsustained ventricular tachycardia) PAD (peripheral artery disease) Pericardial effusion HX OF; FOLLOWS WITH CARDIO PVCs (premature ventricular contractions) Obesity Degenerative disc disease CERVICAL Diabetes mellitus, type 2 Hypertension Hyperlipidemia Surgical History S/P cervical spinal fusion Status post insertion of iliac artery stent History of cardiac cath History of colonoscopy History of tonsillectomy Family History (Updated 04/05/25 @ 17:50 by Janine Andrews PA-C) Mother Myocardial infarction at 64 Brother Myocardial infarction Father Prostate cancer Grandfather (Paternal) Prostate cancer Social History Smoking Status: Never smoker Tobacco Type: Cigarettes Second Hand Exposure: No; Do You Dip or Chew Tobacco: No; Hx Alcohol Use: No Hx Substance Use: No Preferred Language: Micronesian Communication Ability: Effective Visual Impairment: No Limitations Cigarette Stamper Required: No Beliefs That Will Affect Care: Jainism Current Living Situation: Alone Feels Safe at Home: Yes Assistive Devices: Glasses and Hearing Aid - Bilateral Physical Exam Constitutional: no acute distress Pale complexion Eyes: PERRL, conjunctivae normal, anicteric sclerae ENMT: external ear and nose normal, oropharynx normal Neck: trachea midline, no thyromegaly Respiratory: normal respiratory effort, lungs clear to auscultation Cardiovascular: Rate/Rhythm: + tachycardic Heart Sounds: normal S1 and normal S2 Palpation: normal PMI Vessels: no JVD Extremities: no edema Gastrointestinal (Abdomen): Inspection/Auscultation: + abdomen distended Percussion/Palpation: abdomen nontender Musculoskeletal: no cyanosis or clubbing, extremities motor strength 5/5 Neurologic: PERRL, EOMI, accommodation nl, no face palsy, no dysarthria Results & Data Vital Signs (Past 12 Hours) Vital Signs Temp Pulse Resp BP Pulse Ox 04/06/25 09:08 141/77 H 04/06/25 09:06 103 H 18 97 04/06/25 09:00 147/113 H 04/06/25 09:00 147/113 H 04/06/25 09:00 147/113 H 04/06/25 09:00 147/113 H 04/06/25 09:00 147/113 H 04/06/25 09:00 97 04/06/25 08:16 116/63 04/06/25 08:16 116/63 04/06/25 08:16 116/63 04/06/25 08:16 116/63 04/06/25 08:16 116/63 04/06/25 08:15 119 H 23 91 04/06/25 08:00 117 H 25 H 99 04/06/25 08:00 121/58 L 04/06/25 08:00 121/58 L 04/06/25 08:00 121/58 L 04/06/25 08:00 121/58 L 04/06/25 08:00 121/58 L 04/06/25 07:52 112/61 04/06/25 07:52 112/61 04/06/25 07:52 112/61 04/06/25 07:52 112/61 04/06/25 07:52 112/61 04/06/25 07:51 118 H 21 98 04/06/25 07:00 122 H 14 98 04/06/25 07:00 109/77 04/06/25 07:00 109/77 04/06/25 07:00 109/77 04/06/25 07:00 109/77 04/06/25 07:00 109/77 04/06/25 06:00 123/68 04/06/25 06:00 132 H 18 93 04/06/25 05:30 120 H 18 98 04/06/25 05:00 36.7 C 108 H 18 97 04/06/25 05:00 125/61 04/06/25 05:00 125/61 04/06/25 04:30 102 H 22 98 04/06/25 04:02 95 H 22 98 04/06/25 04:00 104/71 04/06/25 04:00 104/71 04/06/25 03:59 121 H 22 98 04/06/25 03:32 108 H 19 96 04/06/25 03:02 112 H 16 98 04/06/25 03:00 119/72 04/06/25 02:59 102 H 18 97 04/06/25 02:32 95 H 19 98 04/06/25 02:31 111/65 04/06/25 02:31 111/65 04/06/25 02:29 102 H 23 99 04/06/25 02:02 112 H 17 98 04/06/25 02:00 114/56 L 04/06/25 02:00 114/56 L 04/06/25 01:59 119 H 18 100 04/06/25 01:30 107/67 04/06/25 01:30 107/67 04/06/25 01:30 107/67 04/06/25 01:30 107/67 04/06/25 01:30 107/67 04/06/25 01:29 114 H 15 87 L 04/06/25 01:00 118 H 17 99 04/06/25 01:00 107/60 04/06/25 00:30 109 H 11 L 99 04/06/25 00:30 104/77 04/06/25 00:26 108 H 04/06/25 00:21 96 H 17 98 04/06/25 00:12 117 H 19 99 04/06/25 00:00 121/72 04/06/25 00:00 121/72 04/06/25 00:00 84 18 98 04/06/25 00:00 109 H 04/05/25 23:51 117 H 29 H 97 04/05/25 23:42 123 H 25 H 98 04/05/25 23:30 94 H 24 99 04/05/25 23:30 131/74 04/05/25 23:30 131/74 04/05/25 23:21 108 H 21 98 04/05/25 23:12 115 H 20 99 04/05/25 23:00 113 H 20 100 04/05/25 23:00 119/71 04/05/25 22:51 88 18 97 04/05/25 22:42 110 H 6 L 98 04/05/25 22:30 106 H 0 L 98 04/05/25 22:30 113/64 04/05/25 22:30 113/64 04/05/25 22:30 113/64 04/05/25 22:21 110 H 4 L 97 04/05/25 22:12 109 H 6 L 98 04/05/25 22:01 101/59 L 04/05/25 22:01 101/59 L 04/05/25 22:00 114 H 1 L 97 04/05/25 21:51 115 H 6 L 98 04/05/25 21:42 128 H 17 97 04/05/25 21:30 94 H 25 H 99 04/05/25 21:30 103/60 04/05/25 21:21 113 H 16 98 Laboratory Results Laboratory Results - last 24 hr 04/05/25 04/05/25 04/05/25 14:27 14:32 14:36 WBC 8.56 RBC 6.54 H Hgb 15.3 POC Hgb 18.0 Hct 48.4 POC Hct 53 H MCV 74.0 L MCH 23.4 L MCHC 31.6 L RDW Std Deviation 46.2 RDW Coeff of Tavo 19.3 H Plt Count 585 H MPV 9.6 Immature Gran % (Auto) 0.9 Neut % (Auto) 79.4 Lymph % (Auto) 13.3 Kay % (Auto) 4.9 Eos % (Auto) 0.7 Baso % (Auto) 0.8 Neut # (Auto) 6.79 H Lymph # (Auto) 1.14 L Kay # (Auto) 0.42 Eos # (Auto) 0.06 Baso # (Auto) 0.07 Immature Gran # (Auto) 0.08 PT 13.7 H INR 1.3 H APTT 28 PTT Ratio 1.0 Heparin Anti-Xa, Unfract POC Sodium 129 L Sodium 128 L POC Potassium 4.2 Potassium 4.2 POC Chloride 92 L Chloride 87 L Carbon Dioxide 18 L POC Total CO2 17 L Anion Gap 23 H POC Anion Gap 25.0 POC BUN 24 H BUN 24 H Creatinine 1.36 POC Creatinine 1.4 H Est Cr Clr Drug Dosing Not Reportable eGFR 56.68 BUN/Creatinine Ratio 17.6 Glucose 195 H POC Glucose POC Glucose (other) 181 H Osmolality 288 Lactate Calcium 10.2 POC Ioniz Calcium Keaton 1.09 L Ionized Calcium Phosphorus Magnesium 2.0 Iron TIBC Transferrin Transferrin % Sat Total Bilirubin 0.8 AST 18 ALT 13 Alkaline Phosphatase 59 Total Creatine Kinase 114 Troponin I High Sens 46.7 H Total Protein 9.1 H Albumin 3.6 Globulin 5.5 H Albumin/Globulin Ratio 0.7 L Lipase 23 TSH Urine Color Urine Appearance Urine pH Ur Specific Clio Urine Protein Urine Glucose (UA) Urine Ketones Urine Blood Urine Nitrite Urine Bilirubin Urine Urobilinogen Ur Leukocyte Esterase Urine WBC (Auto) Urine RBC (Auto) U Hyaline Cast (Auto) U Epithel Cells (Auto) Urine Bacteria (Auto) Urine Osmolality Ur Random Creatinine Ur Random Sodium Ur Random Potassium Ur Random Chloride Urine Comment Nasal Screen MRSA (PCR) Stl C. cayetanensis PCR Stool Rotavirus A PCR Stl Adenov F 40/41 PCR Stool Astrovirus (PCR) Stool Campylobacter PCR Stl C. diff Tox B Gene Stl C. diff [id number] Stool Cryptosporidium PCR Stl E.coli Shiga Tox PCR Stl Enterotoxigenic E PCR Stool EPEC (PCR) Stool EAEC (PCR) Stl E. histolytica PCR Stool Giardia Lamblia PCR Stool Salmonella PCR Stool Sapovirus (PCR) Stl P. shigelloides PCR Stl Shigella/EIEC PCR St Y.enterocolitica PCR Stool Vibrio (PCR) Stl Vibrio cholerae PCR Stl Norovirus GI/GII PCR Giardia Antigen 04/05/25 04/05/25 04/05/25 17:25 20:09 20:10 WBC RBC Hgb POC Hgb Hct POC Hct MCV MCH MCHC RDW Std Deviation RDW Coeff of Tavo Plt Count MPV Immature Gran % (Auto) Neut % (Auto) Lymph % (Auto) Kay % (Auto) Eos % (Auto) Baso % (Auto) Neut # (Auto) Lymph # (Auto) Kay # (Auto) Eos # (Auto) Baso # (Auto) Immature Gran # (Auto) PT INR APTT PTT Ratio Heparin Anti-Xa, Unfract POC Sodium Sodium 131 L POC Potassium Potassium 3.6 POC Chloride Chloride 93 L Carbon Dioxide 19 L POC Total CO2 Anion Gap 19 H POC Anion Gap POC BUN BUN 22 Creatinine 0.99 D POC Creatinine Est Cr Clr Drug Dosing Not Reportable eGFR 82.98 BUN/Creatinine Ratio 22.2 H Glucose 118 H POC Glucose 110 H POC Glucose (other) Osmolality Lactate 2.0 Calcium 8.7 POC Ioniz Calcium Keaton Ionized Calcium Phosphorus Magnesium Iron TIBC Transferrin Transferrin % Sat Total Bilirubin AST ALT Alkaline Phosphatase Total Creatine Kinase Troponin I High Sens Total Protein Albumin Globulin Albumin/Globulin Ratio Lipase TSH 1.109 Urine Color Urine Appearance Urine pH Ur Specific Clio Urine Protein Urine Glucose (UA) Urine Ketones Urine Blood Urine Nitrite Urine Bilirubin Urine Urobilinogen Ur Leukocyte Esterase Urine WBC (Auto) Urine RBC (Auto) U Hyaline Cast (Auto) U Epithel Cells (Auto) Urine Bacteria (Auto) Urine Osmolality Ur Random Creatinine Ur Random Sodium Ur Random Potassium Ur Random Chloride Urine Comment Nasal Screen MRSA (PCR) Stl C. cayetanensis PCR Stool Rotavirus A PCR Stl Adenov F 40/41 PCR Stool Astrovirus (PCR) Stool Campylobacter PCR Stl C. diff Tox B Gene Stl C. diff [id number] Stool Cryptosporidium PCR Stl E.coli Shiga Tox PCR Stl Enterotoxigenic E PCR Stool EPEC (PCR) Stool EAEC (PCR) Stl E. histolytica PCR Stool Giardia Lamblia PCR Stool Salmonella PCR Stool Sapovirus (PCR) Stl P. shigelloides PCR Stl Shigella/EIEC PCR St Y.enterocolitica PCR Stool Vibrio (PCR) Stl Vibrio cholerae PCR Stl Norovirus GI/GII PCR Giardia Antigen 04/05/25 04/05/25 04/05/25 23:55 23:55 23:55 WBC RBC Hgb POC Hgb Hct POC Hct MCV MCH MCHC RDW Std Deviation RDW Coeff of Tavo Plt Count MPV Immature Gran % (Auto) Neut % (Auto) Lymph % (Auto) Kay % (Auto) Eos % (Auto) Baso % (Auto) Neut # (Auto) Lymph # (Auto) Kay # (Auto) Eos # (Auto) Baso # (Auto) Immature Gran # (Auto) PT INR APTT PTT Ratio Heparin Anti-Xa, Unfract POC Sodium Sodium POC Potassium Potassium POC Chloride Chloride Carbon Dioxide POC Total CO2 Anion Gap POC Anion Gap POC BUN BUN Creatinine POC Creatinine Est Cr Clr Drug Dosing eGFR BUN/Creatinine Ratio Glucose POC Glucose POC Glucose (other) Osmolality Lactate Calcium POC Ioniz Calcium Keaton Ionized Calcium Phosphorus Magnesium Iron TIBC Transferrin Transferrin % Sat Total Bilirubin AST ALT Alkaline Phosphatase Total Creatine Kinase Troponin I High Sens Total Protein Albumin Globulin Albumin/Globulin Ratio Lipase TSH Urine Color Yellow Urine Appearance Clear Urine pH 5.5 Ur Specific Clio > 1.045 H Urine Protein Trace H Urine Glucose (UA) 3+ H Urine Ketones 3+ H Urine Blood Negative Urine Nitrite Negative Urine Bilirubin Negative Urine Urobilinogen Negative Ur Leukocyte Esterase Negative Urine WBC (Auto) 0-5 Urine RBC (Auto) 0-2 U Hyaline Cast (Auto) 0-2 U Epithel Cells (Auto) 0-2 Urine Bacteria (Auto) None Seen Urine Osmolality 668 Ur Random Creatinine 85.6 Ur Random Sodium < 10 Cancelled Ur Random Potassium 24.2 Ur Random Chloride Cancelled < 15 Urine Comment Nasal Screen MRSA (PCR) Stl C. cayetanensis PCR Stool Rotavirus A PCR Stl Adenov F PCR Stool Astrovirus (PCR) Stool Campylobacter PCR Stl C. diff Tox B Gene Stl C. diff [id number] Stool Cryptosporidium PCR Stl E.coli Shiga Tox PCR Stl Enterotoxigenic E PCR Stool EPEC (PCR) Stool EAEC (PCR) Stl E. histolytica PCR Stool Giardia Lamblia PCR Stool Salmonella PCR Stool Sapovirus (PCR) Stl P. shigelloides PCR Stl Shigella/EIEC PCR St Y.enterocolitica PCR Stool Vibrio (PCR) Stl Vibrio cholerae PCR Stl Norovirus GI/GII PCR Giardia Antigen 04/05/25 04/06/25 04/06/25 Unknown 02:40 08:04 WBC 6.41 RBC 5.02 Hgb 11.5 L D POC Hgb Hct 37.4 L POC Hct MCV 74.5 L MCH 22.9 L MCHC 30.7 L RDW Std Deviation 46.3 RDW Coeff of Tavo 17.6 H Plt Count 369 MPV 9.5 Immature Gran % (Auto) 0.8 Neut % (Auto) 84.0 Lymph % (Auto) 8.9 Kay % (Auto) 4.4 Eos % (Auto) 1.4 Baso % (Auto) 0.5 Neut # (Auto) 5.39 Lymph # (Auto) 0.57 L Kay # (Auto) 0.28 Eos # (Auto) 0.09 Baso # (Auto) 0.03 Immature Gran # (Auto) 0.05 PT INR APTT PTT Ratio Heparin Anti-Xa, Unfract 0.28 L POC Sodium Sodium 133 L POC Potassium Potassium 3.6 POC Chloride Chloride 97 L Carbon Dioxide 22 POC Total CO2 Anion Gap 14 H POC Anion Gap POC BUN BUN 23 Creatinine 0.95 POC Creatinine Est Cr Clr Drug Dosing 84.1 eGFR 87.19 BUN/Creatinine Ratio 24.2 H Glucose 96 POC Glucose POC Glucose (other) Osmolality Lactate Calcium 8.1 L POC Ioniz Calcium Keaton Ionized Calcium 1.02 L Phosphorus 3.1 Magnesium 1.8 Iron 13 L TIBC 269 Transferrin 192 L Transferrin % Sat 5 L Total Bilirubin AST ALT Alkaline Phosphatase Total Creatine Kinase Troponin I High Sens 39.1 H Total Protein Albumin Globulin Albumin/Globulin Ratio Lipase TSH Urine Color Urine Appearance Urine pH Ur Specific Clio Urine Protein Urine Glucose (UA) Urine Ketones Urine Blood Urine Nitrite Urine Bilirubin Urine Urobilinogen Ur Leukocyte Esterase Urine WBC (Auto) Urine RBC (Auto) U Hyaline Cast (Auto) U Epithel Cells (Auto) Urine Bacteria (Auto) Urine Osmolality Ur Random Creatinine Ur Random Sodium Ur Random Potassium Ur Random Chloride Urine Comment Nasal Screen MRSA (PCR) Negative Stl C. cayetanensis PCR Stool Rotavirus A PCR Stl Adenov F 40/41 PCR Stool Astrovirus (PCR) Stool Campylobacter PCR Stl C. diff Tox B Gene Stl C. diff [id number] Stool Cryptosporidium PCR Stl E.coli Shiga Tox PCR Stl Enterotoxigenic E PCR Stool EPEC (PCR) Stool EAEC (PCR) Stl E. histolytica PCR Stool Giardia Lamblia PCR Stool Salmonella PCR Stool Sapovirus (PCR) Stl P. shigelloides PCR Stl Shigella/EIEC PCR St Y.enterocolitica PCR Stool Vibrio (PCR) Stl Vibrio cholerae PCR Stl Norovirus GI/GII PCR Giardia Antigen 04/06/25 08:36 WBC RBC Hgb POC Hgb Hct POC Hct MCV MCH MCHC RDW Std Deviation RDW Coeff of Tavo Plt Count MPV Immature Gran % (Auto) Neut % (Auto) Lymph % (Auto) Kay % (Auto) Eos % (Auto) Baso % (Auto) Neut # (Auto) Lymph # (Auto) Kay # (Auto) Eos # (Auto) Baso # (Auto) Immature Gran # (Auto) PT INR APTT PTT Ratio Heparin Anti-Xa, Unfract POC Sodium Sodium POC Potassium Potassium POC Chloride Chloride Carbon Dioxide POC Total CO2 Anion Gap POC Anion Gap POC BUN BUN Creatinine POC Creatinine Est Cr Clr Drug Dosing eGFR BUN/Creatinine Ratio Glucose POC Glucose POC Glucose (other) Osmolality Lactate Calcium POC Ioniz Calcium Keaton Ionized Calcium Phosphorus Magnesium Iron TIBC Transferrin Transferrin % Sat Total Bilirubin AST ALT Alkaline Phosphatase Total Creatine Kinase Troponin I High Sens Total Protein Albumin Globulin Albumin/Globulin Ratio Lipase TSH Urine Color Urine Appearance Urine pH Ur Specific Clio Urine Protein Urine Glucose (UA) Urine Ketones Urine Blood Urine Nitrite Urine Bilirubin Urine Urobilinogen Ur Leukocyte Esterase Urine WBC (Auto) Urine RBC (Auto) U Hyaline Cast (Auto) U Epithel Cells (Auto) Urine Bacteria (Auto) Urine Osmolality Ur Random Creatinine Ur Random Sodium Ur Random Potassium Ur Random Chloride Urine Comment Nasal Screen MRSA (PCR) Stl C. cayetanensis PCR Not Detected Stool Rotavirus A PCR Not Detected Stl Adenov F 40/41 PCR Not Detected Stool Astrovirus (PCR) Not Detected Stool Campylobacter PCR Not Detected Stl C. diff Tox B Gene Negative Cdiff Gene Stl C. diff [id number] NEGATIVE Stool Cryptosporidium PCR Not Detected Stl E.coli Shiga Tox PCR Not Detected Stl Enterotoxigenic E PCR Not Detected Stool EPEC (PCR) Not Detected Stool EAEC (PCR) Not Detected Stl E. histolytica PCR Not Detected Stool Giardia Lamblia PCR Not Detected Stool Salmonella PCR Not Detected Stool Sapovirus (PCR) Not Detected Stl P. shigelloides PCR Not Detected Stl Shigella/EIEC PCR Not Detected St Y.enterocolitica PCR Not Detected Stool Vibrio (PCR) Not Detected Stl Vibrio cholerae PCR Not Detected Stl Norovirus GI/GII PCR Not Detected Giardia Antigen Pending Diagnostic Findings Echocardiogram 04/06/2025 The left ventricle is normal in size there is moderate left hypertrophy there are no regional wall motion abnormalities EF 55 to 60% grade 1 diastolic dysfunction present Aortic valve sclerosis without stenosis Small sequential pericardial effusion without dynamic significant EKG 04/05/2025 1429 Narrow complex tachycardia at 188 bpm possible atypical atrial flutter EKG 04/05/2025 1847 following cardioversion multifocal atrial tachycardia with frequent ventricular ectopy EKG 04/06/2025 551 Sinus rhythm with multifocal atrial tachycardia, blocked PACs premature ventricular beats nonspecific ST segment abnormalities QT prolongation PG Care Time/CCT Total # of Minutes Spent Total Time Spent with Patient: Total time spent is greater than 50% in coordination of care (as documented) at patient's floor/unit and/or counseling patient: Coding Level of Care Code 02007 IN/OBS CONSULT LVL 5,80M Diagnoses Narrow complex tachycardia I47.19 Dehydration E86.0 RIANA (acute kidney injury) N17.9 Peripheral vascular disease I73.9
[2025-04-06 09:35] LABS: Cdiff Toxin B Gene (2yr or >) Negative Cdiff Gene (Neg)
[2025-04-06] MEDS ORDERED: GLUCAGON FOR INJ 1 MG VIAL SQ PRN (10:00)
[2025-04-06] MEDS ORDERED: DEXTROSE 50% 50 ML SYRINGE IV PRN (10:00)
[2025-04-06] MEDS ORDERED: GLUCOSE 40% GEL 15 GM TUBE PO PRN (10:00)
[2025-04-06] MEDS ORDERED: CARBOHYDRATES FOR HYPOGLYCEMIA PO PRN (10:00)
[2025-04-06] MEDS ORDERED: GLUCOSE 10 TAB/TUBE PO PRN (10:00)
[2025-04-06 10:10] LABS: Adenovirus F 40/41 PCR Not Detected (NotDetected); Campylobacter PCR Not Detected (NotDetected); Enteroaggregative E.coli(EAEC) Not Detected (NotDetected); Shiga-like Toxin E.coli (STEC) Not Detected (NotDetected); Vibrio species PCR Not Detected (NotDetected)
[2025-04-06] MEDS: CALCIUM GLUCONATE 10% 1,000 MG in NS X1 BAG IV ONE (10:13)
--- NOTE | 2025-04-06 10:17 | Hospitalist Progress Note ---
Date of Service April 06, 2025 Assessment & Plan (1) Atrial fibrillation with rapid ventricular response: (2) Acute hyponatremia: (3) Dehydration: (4) PAD (peripheral artery disease): (5) Diabetes mellitus, type 2: (6) Hypertension: (7) Pericardial effusion: (8) CAD (coronary artery disease): Plan This is a 69 y/o male with DM2, PAD, known pericardial effusion, hx NSVT, CAD, HTN, dyslipidemia, presented to the ED with recurrent falls and weakness. In the ED, pt was found to have new-onset atrial fibrillation with rapid ventricular response with rates in the 180s. He was given a total of Lopressor 15 mg IV, then 10 mg of diltiazem - rate transiently dropped to the 130s before returning to the 170s to 180s. He was started on a diltiazem gtt and referred for admission. He was admitted to medical floor; was transferred to ICU due to low blood pressure while on Cardizem drip. Patient underwent electrical cardioversion for unstable tachycardia on 04/05/2025. Atrial tachycardia Atrial fibrillation with RVR Patient presents with multiple falls; was found to have atrial tachycardia/fibrillation with a rate in 180s Was transferred to ICU on 04/05 for low blood pressure; underwent emergent cardioversion but reverted back to atrial tachycardia/fibrillation Echocardiogram shows EF of 55 to 60% with moderate concentric LVH. Continue on Cardizem drip; heparin drip is currently on hold due to possible rectal bleed Continue to monitor on telemetry; cardiology consulted for comanagement Transferred out of ICU to PCU Hyponatremia Found to have serum sodium of 128 on admission; Urine electrolyte studies suggest hypovolemic hyponatremia Serum sodium improving gradually after IV hydration #Type 2 Diabetes - Holding oral medications, Ozempic - Insulin sliding scale - Diabetic diet as tolerated - BSG ACHS #Chronic diarrhea and rectal bleeding Hemoglobin down trended from 15.3-11.5; could be a component of hemodilution Stool studies negative for infection GI consulted for comanagement; appreciate recommendation #PAD - s/p iliac stent - Aspirin and plavix on hold for possible GI bleed CODE STATUS full DVT prophylaxis on hold for possible rectal bleed Time spent evaluating patient, direct bedside care, chart review, placing orders, interpretation of diagnostic studies, discussion with consultants, patient, and family members, as well as other required patient management activities is 50 minutes Please note the above document was generated using voice recognition software. It may contain grammatical, syntax or spelling errors. Any formal questions or concerns about the content, text or information contained within the body of this dictation should be directly addressed to the provider for clarification Admission and Anticipated Discharge Date Admission Date: April 05, 2025 Subjective Patient seen and examined at bedside. He is lying in the bed comfortably; denies any chest pain, shortness of breath or dizziness. Telemetry shows atrial tachycardia with rate in 100s. Frequent PVCs. He is on Cardizem drip Review of Systems Review of Systems: All systems reviewed & are unremarkable except as noted in Subjective Physical Exam Physical Exam: Constitutional: Alert oriented x 3; not in distress. Respiratory: Bilateral vesicular breath sound Cardiovascular: Irregular, no murmur, no edema Vessels: no JVD or carotid bruit Chest: normal inspection of chest Abdomen: normal bowel sounds, soft, nontender, no hepatosplenomegaly Musculoskeletal: no cyanosis or clubbing, extremities motor strength 5/5 Skin: no rashes, warm and dry normal turgor Neurologic: PERRL, EOMI, accommodation nl, no face palsy, no dysarthria CN's II- XI intact bilaterally and moves all extremities Psychiatric: A+Ox3, euthymic affect Results & Data Results & Data Vital Signs (Past 12 Hours) Vital Signs Temp Pulse Resp BP Pulse Ox 04/06/25 09:08 141/77 H 04/06/25 09:06 103 H 18 97 04/06/25 09:00 147/113 H 04/06/25 09:00 147/113 H 04/06/25 09:00 147/113 H 04/06/25 09:00 147/113 H 04/06/25 09:00 147/113 H 04/06/25 09:00 97 04/06/25 08:16 116/63 04/06/25 08:16 116/63 04/06/25 08:16 116/63 04/06/25 08:16 116/63 04/06/25 08:16 116/63 04/06/25 08:15 119 H 23 91 04/06/25 08:00 36.7 C 04/06/25 08:00 117 H 25 H 99 04/06/25 08:00 121/58 L 04/06/25 08:00 121/58 L 04/06/25 08:00 121/58 L 04/06/25 08:00 121/58 L 04/06/25 08:00 121/58 L 04/06/25 07:52 112/61 04/06/25 07:52 112/61 04/06/25 07:52 112/61 04/06/25 07:52 112/61 04/06/25 07:52 112/61 04/06/25 07:51 118 H 21 98 04/06/25 07:00 122 H 14 98 04/06/25 07:00 109/77 04/06/25 07:00 109/77 04/06/25 07:00 109/77 04/06/25 07:00 109/77 04/06/25 07:00 109/77 04/06/25 06:00 123/68 04/06/25 06:00 132 H 18 93 04/06/25 05:30 120 H 18 98 04/06/25 05:00 36.7 C 108 H 18 97 04/06/25 05:00 125/61 04/06/25 05:00 125/61 04/06/25 04:30 102 H 22 98 04/06/25 04:02 95 H 22 98 04/06/25 04:00 104/71 04/06/25 04:00 104/71 04/06/25 03:59 121 H 22 98 04/06/25 03:32 108 H 19 96 04/06/25 03:02 112 H 16 98 04/06/25 03:00 119/72 04/06/25 02:59 102 H 18 97 04/06/25 02:32 95 H 19 98 04/06/25 02:31 111/65 04/06/25 02:31 111/65 04/06/25 02:29 102 H 23 99 04/06/25 02:02 112 H 17 98 04/06/25 02:00 114/56 L 04/06/25 02:00 114/56 L 04/06/25 01:59 119 H 18 100 04/06/25 01:30 107/67 04/06/25 01:30 107/67 04/06/25 01:30 107/67 04/06/25 01:30 107/67 04/06/25 01:30 107/67 04/06/25 01:29 114 H 15 87 L 04/06/25 01:00 118 H 17 99 04/06/25 01:00 107/60 04/06/25 00:30 109 H 11 L 99 04/06/25 00:30 104/77 04/06/25 00:26 108 H 04/06/25 00:21 96 H 17 98 04/06/25 00:12 117 H 19 99 04/06/25 00:00 121/72 04/06/25 00:00 121/72 04/06/25 00:00 84 18 98 04/06/25 00:00 109 H 04/05/25 23:51 117 H 29 H 97 04/05/25 23:42 123 H 25 H 98 04/05/25 23:30 94 H 24 99 04/05/25 23:30 131/74 04/05/25 23:30 131/74 04/05/25 23:21 108 H 21 98 04/05/25 23:12 115 H 20 99 04/05/25 23:00 113 H 20 100 04/05/25 23:00 119/71 04/05/25 22:51 88 18 97 04/05/25 22:42 110 H 6 L 98 04/05/25 22:30 106 H 0 L 98 04/05/25 22:30 113/64 04/05/25 22:30 113/64 04/05/25 22:30 113/64 04/05/25 22:21 110 H 4 L 97
[2025-04-06] MEDS: METOPROLOL TARTRATE 25 MG TAB PO STA (11:35)
[2025-04-06] MEDS: METOPROLOL TARTRATE 25 MG TAB PO SCH (11:37)
[2025-04-06] MEDS: INSULIN ASPART PER UNIT CHARGE SC SCH (11:45)
[2025-04-06 12:22] LABS: Hematocrit (blood only) 35.7 % (42.0-52.0); Hemoglobin 11.4 g/dL (14.0-18.0)
--- NOTE | 2025-04-06 13:00 | Gastrointestinal Consultation ---
Date of Consultation April 06, 2025 Assessment & Plan (1) Chronic diarrhea: (2) Colitis: (3) Nausea: Plan Patient with a long history of chronic diarrhea, with recently having had issues with nausea with eating. Diarrhea has been ongoing but he notes UGI symptoms somewhat improved with admission. - recommend supportive care at this time. - likely will need eventual endoscopic evaluation, though will need to discuss timing given recent cardiovascular events. - Further recommendations to come with Supervising GI provider on medical rounds. Please see co-signature comments. Supervising Physician Co-Signing Physician Notes Reviewed chart CT scan labs and reviewed with PA. Patient is had 6 months of increased bowel frequency between 6 and 10 times per day. The diarrhea can be urgent with bouts of incontinence and nocturnal awakening. Does note blood. CT scan does suggest pancolitis. 6 months of symptoms would suggest noninfectious etiology. [place] his symptoms began with the introduction of Ozempic. Though we would not expect a pancolitis and bleeding with diarrhea from the GLP-1. There is some case reports where GLP-1's can be beneficial for inflammatory bowel disease. Patient was admitted with rapid A-fib with rapid ventricular response requiring defibrillation. Was on aspirin and Plavix at home. Currently held. Also does not appear to be on heparin at this time. Plan will be for a limited flexible sigmoidoscopy with biopsies on . This will require the blessing of his attending and cardiology. Suspect inflammatory bowel disease History of Present Illness Reason for Consultation: Colitis Requesting Physician: Janine Andrews PAC Attending Physician: Otis Bryant MD History of Present Illness Patient is a 69 year old male with a past medical history of DM II, PAD, known pericardial effusion, hx NSVT, CAD, HTN, dyslipidemia who presented to the ED 04/05 with complaints of recurrent falls and weakness. In the ED, patient was found to have new-onset atrial fibrillation with rapid ventricular response with rates in the 180s. He was given a total of Lopressor 15 mg IV, then 10 mg of diltiazem - rate transiently dropped to the 130s before returning to the 170s to 180s. He was started on a diltiazem gtt and admitted and underwent cardioversion for unstable tachycardia. Patient notes that for months he has had diarrhea and reports having 2-3 bowel movements with every meal. no blood in the stools or melena. he also note a poor appetite and that over the past two weeks he would find himself getting nauseated with everything he eats and afterwards develop dry heaving. no emesis. He does feel like since admission, he has had less of the UGI issues. he reports a history of colon polyps and his last colonoscopy was about 5 years ago. He notes he follows with [facility] on this. I do not have these records. the remainder of the GI ros are unremarkable. 04/06/25 wbc 6.41, hgb 11.4, hct 35.7, plts 369, Na 133, K 3.6, BUN 23, Cr 0.95, iron 13, TIBC 269, sat 5. stool studies unremarkable. 04/05/25 CT A/P - 1. There is no acute posttraumatic intrathoracic abnormality. 2. There is no airspace consolidation, pleural effusion, or pneumothorax. 3. There is no evidence of solid organ injury in the abdomen or pelvis. 4. Findings are consistent with a nonspecific pancolitis. 5. A groundglass lesion at the right apex measuring up to 10 mm and an 8 mm subsolid nodule in the left lower lobe have increased in size dating back to 2022. Low-grade adenomatous lesions are not excluded. Nonemergent follow-up with pulmonology is recommended, as is a 6 month follow-up chest CT for reassessment. 6. An indeterminant right adrenal nodule is unchanged from 2022. 7. Cardiomegaly noting coronary artery atherosclerosis and a moderate pericardial effusion. Allergies Allergy/AdvReac Type Severity Reaction Status Date / Time Penicillins Allergy Mild MOUTH SORES Verified 07/05/21 10:16 Home Medications Medication Instructions Recorded Confirmed Type aspirin 81 mg tablet,delayed 81 mg PO QDD 01/20/18 04/05/25 History release magnesium oxide 400 mg PO QDD 01/20/18 04/05/25 History metformin 500 mg tablet 1,000 mg PO BID 01/20/18 04/05/25 History cyanocobalamin (vitamin B-12) 1,000 mcg sublingual DAILY 07/05/21 04/05/25 History 1,000 mcg sublingual tablet empagliflozin 25 mg tablet 25 mg PO DAILY 07/05/21 04/05/25 History (Jardiance) verapamil 120 mg tablet,extended 120 mg PO QPM 07/05/21 04/05/25 History release clopidogrel 75 mg tablet 75 mg PO DAILY 04/05/25 04/05/25 History rosuvastatin 20 mg tablet 20 mg PO DAILY 04/05/25 04/05/25 History semaglutide 1 mg/dose (4 mg/3 mL) 1 mg subcut WK 04/05/25 04/05/25 History subcutaneous pen injector (Ozempic) Patient History Medical History CAD (coronary artery disease) Gout NSVT (nonsustained ventricular tachycardia) PAD (peripheral artery disease) Pericardial effusion HX OF; FOLLOWS WITH CARDIO PVCs (premature ventricular contractions) Obesity Degenerative disc disease CERVICAL Diabetes mellitus, type 2 Hypertension Hyperlipidemia Surgical History S/P cervical spinal fusion Status post insertion of iliac artery stent History of cardiac cath History of colonoscopy History of tonsillectomy Family History (Updated 04/05/25 @ 17:50 by Janine Andrews PA-C) Mother Myocardial infarction at 64 Brother Myocardial infarction Father Prostate cancer Grandfather (Paternal) Prostate cancer Social History Smoking Status: Never smoker Tobacco Type: Cigarettes Second Hand Exposure: No; Do You Dip or Chew Tobacco: No; Hx Alcohol Use: No Hx Substance Use: No Preferred Language: Khmer Communication Ability: Effective Visual Impairment: No Limitations Plaster Patternmaker Required: No Beliefs That Will Affect Care: Caodaism Current Living Situation: Alone Feels Safe at Home: Yes Assistive Devices: None Review of Systems Review of Systems: All systems reviewed & are unremarkable except as noted in HPI & below Physical Exam Constitutional: WD/WN, vitals as above Respiratory: normal respiratory effort, lungs clear to auscultation Cardiovascular: Rate/Rhythm: regular rate and regular rhythm Gastrointestinal (Abdomen): normal bowel sounds, soft, nontender, no hepatosplenomegaly Psychiatric: Orientation: alert and oriented x 3 Affect: euthymic affect Results & Data Vital Signs (Past 12 Hours) Vital Signs Temp Pulse Resp BP Pulse Ox O2 Del Method 04/06/25 12:09 98.4 F 04/06/25 12:00 91 H 17 98 Room Air 04/06/25 12:00 117/66 04/06/25 11:00 133/70 04/06/25 11:00 133/70 04/06/25 11:00 133/70 04/06/25 11:00 133/70 04/06/25 11:00 133/70 04/06/25 11:00 133/70 04/06/25 11:00 103 H 22 98 04/06/25 10:00 132/66 04/06/25 10:00 132/66 04/06/25 10:00 132/66 04/06/25 10:00 132/66 04/06/25 10:00 132/66 04/06/25 10:00 103 H 19 95 04/06/25 09:09 105 H 18 98 04/06/25 09:08 141/77 H 04/06/25 09:08 141/77 H 04/06/25 09:08 141/77 H 04/06/25 09:08 141/77 H 04/06/25 09:08 141/77 H 04/06/25 09:06 103 H 18 97 04/06/25 09:00 147/113 H 04/06/25 09:00 147/113 H 04/06/25 09:00 147/113 H 04/06/25 09:00 147/113 H 04/06/25 09:00 147/113 H 04/06/25 09:00 97 04/06/25 08:16 116/63 04/06/25 08:16 116/63 04/06/25 08:16 116/63 04/06/25 08:16 116/63 04/06/25 08:16 116/63 04/06/25 08:15 119 H 23 91 04/06/25 08:00 98.1 F 04/06/25 08:00 117 H 25 H 99 04/06/25 08:00 121/58 L 04/06/25 08:00 121/58 L 04/06/25 08:00 121/58 L 04/06/25 08:00 121/58 L 04/06/25 08:00 121/58 L 04/06/25 07:52 112/61 04/06/25 07:52 112/61 04/06/25 07:52 112/61 04/06/25 07:52 112/61 04/06/25 07:52 112/61 04/06/25 07:51 118 H 21 98 04/06/25 07:00 122 H 14 98 04/06/25 07:00 109/77 04/06/25 07:00 109/77 04/06/25 07:00 109/77 04/06/25 07:00 109/77 04/06/25 07:00 109/77 04/06/25 06:00 123/68 04/06/25 06:00 132 H 18 93 04/06/25 05:30 120 H 18 98 04/06/25 05:00 98.1 F 108 H 18 97 04/06/25 05:00 125/61 04/06/25 05:00 125/61 04/06/25 04:30 102 H 22 98 04/06/25 04:02 95 H 22 98 04/06/25 04:00 104/71 04/06/25 04:00 104/71 04/06/25 03:59 121 H 22 98 04/06/25 03:32 108 H 19 96 04/06/25 03:02 112 H 16 98 04/06/25 03:00 119/72 04/06/25 02:59 102 H 18 97 04/06/25 02:32 95 H 19 98 04/06/25 02:31 111/65 04/06/25 02:31 111/65 04/06/25 02:29 102 H 23 99 04/06/25 02:02 112 H 17 98 04/06/25 02:00 114/56 L 04/06/25 02:00 114/56 L 04/06/25 01:59 119 H 18 100 04/06/25 01:30 107/67 04/06/25 01:30 107/67 04/06/25 01:30 107/67 04/06/25 01:30 107/67 04/06/25 01:30 107/67 04/06/25 01:29 114 H 15 87 L Coding Level of Care Code 06191 INT INP/OBS CARE 255MIN Diagnoses Chronic diarrhea K52.9 Colitis K52.9 Nausea R11.0
[2025-04-06] MEDS ORDERED: ASPIRIN 81 MG ECTAB PO SCH (16:30)
[2025-04-07 04:36] LABS: Hematocrit (blood only) 34.4 % (42.0-52.0); Hemoglobin 10.9 g/dL (14.0-18.0); Immature Granulocytes # (auto) 0.03 K/uL (0.01-0.20); Immature Granulocytes % (auto) 0.7 %; Mean Corpuscular Hemoglobin 23.4 pg (25.0-34.0); Mean Corpuscular Volume 74.0 fL (80.0-100.0); Platelet Count 265 K/uL (130-400); RDW Standard Deviation 46.9 fL (36.4-46.3); Red Blood Count 4.65 M/uL (4.70-6.10); White Blood Count 4.37 K/ul (4.8-10.8)
[2025-04-07 04:51] LABS: Anion Gap 10.0 (3-11); Blood Urea Nitrogen 16.0 mg/dl (6-23); Calcium 7.4 mg/dl (8.6-10.3); Carbon Dioxide 20.0 mmol/L (21-32); Chloride 100.0 mmol/L (98-107); Creatinine Clr Calc Pharmacy 117.5 ml/min; Glucose 92.0 mg/dl (70-99(Fasting)); Iron 12.0 mcg/dl (35-175); Magnesium 1.9 mg/dl (1.7-2.4); Potassium 3.2 mmol/L (3.5-5.1); Sodium 130.0 mmol/L (136-145); Total Iron Binding Cap Calc 256.0 mcg/dl (250-450); Transferrin 183.0 mg/dl (200-360); Transferrin (FE) Percent Satur 5.0 % (20-50)
--- NOTE | 2025-04-07 07:48 | Hospitalist Progress Note ---
Date of Service April 07, 2025 Assessment & Plan (1) Atrial fibrillation with rapid ventricular response: (2) Acute hyponatremia: (3) Dehydration: (4) PAD (peripheral artery disease): (5) Diabetes mellitus, type 2: (6) Hypertension: (7) Pericardial effusion: (8) CAD (coronary artery disease): Plan This is a 69 y/o male with DM2, PAD, known pericardial effusion, hx NSVT, CAD, HTN, dyslipidemia, presented to the ED with recurrent falls and weakness. In the ED, pt was found to have new-onset atrial fibrillation with rapid ventricular response with rates in the 180s. He was given a total of Lopressor 15 mg IV, then 10 mg of diltiazem - rate transiently dropped to the 130s before returning to the 170s to 180s. He was started on a diltiazem gtt and referred for admission. He was admitted to medical floor; was transferred to ICU due to low blood pressure while on Cardizem drip. Patient underwent electrical cardioversion for unstable tachycardia on 04/05/2025. Narrow complex tachycardia Patient presents with multiple falls; was found to have atrial tachycardia/fibrillation with a rate in 180s Was transferred to ICU on 04/05 for low blood pressure; underwent emergent cardioversion but reverted back to narrow complex tachycardia Echocardiogram shows EF of 55 to 60% with moderate concentric LVH. Transferred out of ICU on April 06, 2025 Cardizem weaned off; currently on metoprolol-Discussed with cardiologyplan to increase dosing of metoprolol. Continue monitor on telemetry #Chronic diarrhea and rectal bleeding Has diarrhea for several months Reports history of intermittent rectal bleeding Plan for flexible sigmoidoscopy on ; patient currently hemodynamically stable and appears optimized from medical standpoint to undergo the procedure. Will make him n.p.o. from midnight Hypokalemiarepleted Hyponatremia- Urinary studies reviewed; hypovolemic hyponatremia. Will start normal saline for [address]- Chest CT done on 04/05 shows ground glass lesion at right apex measuring up to 10 mm and 8 mm subsolid nodule in left lower lobe that have increased in size dating back to 2022. I discussed these findings with the patient on 04/07/2025. We discussed that he needs pulmonology referral as outpatient after discharge and repeat CT chest in 3 months. He verbalized understanding #Type 2 Diabetes - Holding oral medications, Ozempic - Insulin sliding scale - Diabetic diet as tolerated - BSG ACHS #PAD - s/p iliac stent - Aspirin and plavix on hold for possible GI bleed CODE STATUS full DVT prophylaxis on hold for possible rectal bleed Time spent evaluating patient, direct bedside care, chart review, placing order s, interpretation of diagnostic studies, discussion with consultants, patient, and family members, as well as other required patient management activities is 50 minutes Please note the above document was generated using voice recognition software. It may contain grammatical, syntax or spelling errors. Any formal questions or concerns about the content, text or information contained within the body of this dictation should be directly addressed to the provider for clarification Admission and Anticipated Discharge Date Admission Date: April 05, 2025 Subjective Patient seen and examined at bedside. He is comfortable; not in distress. Telemetry continues to show multifocal atrial tachycardia. No chest pain, shortness of breath or abdominal pain. Review of Systems Review of Systems: All systems reviewed & are unremarkable except as noted in Subjective Physical Exam Physical Exam: Constitutional: Alert oriented x 3; not in distress. Respiratory: Bilateral vesicular breath sound Cardiovascular: Irregular, no murmur, no edema Vessels: no JVD or carotid bruit Chest: normal inspection of chest Abdomen: normal bowel sounds, soft, nontender, no hepatosplenomegaly Musculoskeletal: no cyanosis or clubbing, extremities motor strength 5/5 Skin: no rashes, warm and dry normal turgor Neurologic: PERRL, EOMI, accommodation nl, no face palsy, no dysarthria CN's II- XI intact bilaterally and moves all extremities Psychiatric: A+Ox3, euthymic affect Results & Data Results & Data Vital Signs (Past 12 Hours) Vital Signs Temp Pulse Resp BP Pulse Ox O2 Del Method 04/07/25 06:00 105 H 20 97 04/07/25 06:00 109/74 04/07/25 06:00 109/74 04/07/25 04:23 36.9 C 105/56 L 04/07/25 04:23 105/56 L 04/07/25 04:00 110 H 22 04/06/25 23:33 98 H 04/06/25 23:13 112/65 04/06/25 23:12 36.7 C 107 H 16 97 Room Air
[2025-04-07] MEDS: POTASSIUM CHLORIDE CRTAB 20 MEQ TABCR PO STA (08:29)
[2025-04-07] MEDS: MAGNESIUM SULFATE / D5W 1 GM/100 ML BAG IV ONE (08:30)
[2025-04-07] MEDS: POTASSIUM CHLORIDE CRTAB 20 MEQ TABCR PO SCH (08:37)
[2025-04-07] MEDS: POTASSIUM CHLORIDE CRTAB 20 MEQ TABCR PO ONE (08:38)
--- NOTE | 2025-04-07 10:56 | Gastroenterology Progress Note ---
Date of Service April 07, 2025 Assessment & Plan (1) Colitis: Plan - continue with supportive care - Cardiology has cleared for procedure. will plan for him to have a liquid breakfast tomorrow and have tap water enemas prior the flex sig. will plan for this tomorrow. Admission and Anticipated Discharge Date Admission Date: April 05, 2025 Supervising Physician Co-Signing Physician Notes Feeling somewhat better. Still notes some diarrhea. For flexible sigmoidoscopy tomorrow diagnosis pancolitis. Risks and benefits reviewed with the patient agreeable. Subjective Patient still with some diarrhea this morning. he feels like nausea has been better. he was able to tolerate his diet. He reports that cardiology cleared him for any needed endoscopic procedure. no new GI concerns. 04/07/25 wbc 4.37, hgb 10.9, hct 34.4, plts 265, Na 130, K 3.2, BUN 16, Cr 0.68, Iron 12, TIBC 256, Sat 5, AM cortisol 22.06. Review of Systems Review of Systems: All systems reviewed & are unremarkable except as noted in HPI & below Physical Exam Constitutional: WD/WN, vitals as above Respiratory: normal respiratory effort, lungs clear to auscultation Cardiovascular: Rate/Rhythm: regular rate and regular rhythm Gastrointestinal (Abdomen): normal bowel sounds, soft, nontender, no hepatosplenomegaly Psychiatric: Orientation: alert and oriented x 3 Affect: euthymic affect Results & Data Results & Data Vital Signs (Past 12 Hours) Vital Signs Temp Pulse Resp BP Pulse Ox O2 Del Method 04/07/25 06:00 105 H 20 97 04/07/25 06:00 109/74 04/07/25 06:00 109/74 04/07/25 04:23 98.4 F 105/56 L 04/07/25 04:23 105/56 L 04/07/25 04:00 110 H 22 04/06/25 23:33 98 H 04/06/25 23:13 112/65 04/06/25 23:12 98.1 F 107 H 16 97 Room Air Coding Level of Care Code 81805 SUB INP/OBS CARE 2/35MIN Diagnoses Colitis K52.9
--- NOTE | 2025-04-07 11:25 | Cardiology Progress Note ---
Date of Service April 07, 2025 Assessment & Plan (1) Narrow complex tachycardia: (2) Dehydration: (3) RIANA (acute kidney injury): (4) Peripheral vascular disease: Plan Narrow complex tachycardia patient is a 69-year-old male with known atrial and ventricular arrhythmias presenting with extended illness of several months in duration with increasing frequency diarrhea and hematochezia with fecal urgency clinical course complicated by dizziness and falls Patient presented with electrolyte disturbance and narrow complex tachycardia with rapid ventricular response hemodynamically unstable. Patient underwent appropriate synchronized electrical cardioversion and continues to demonstrate episodes of multifocal atrial tachycardia. Echocardiogram without acute change from prior studies with preserved LV systolic function no significant valvular disease, chronic small nonhemodynamic pericardial effusion Recommendations: Begin beta-jenn therapy with metoprolol to tartrate 25 every 6 hours. Previously on verapamil though current rhythm more likely to be responsive to beta-jenn therapies Discontinue IV diltiazem Continue to treat electrolyte disturbances, keep potassium greater than 4 Refer for GI evaluation 04/07/2025 Patient slowly improving. Atrial ventricular arrhythmias improved with beta- jenn therapy 1. Narrow complex tachycardia/multifocal atrial tachycardia prior history of nonsustained ventricular tachycardia. Will titrate beta-jenn to metoprolol t tartrate 50 mg 3 times daily Continue to optimize electrolytes, potassium greater than 4 No cardiac contraindications to endoscopic procedures Admission and Anticipated Discharge Date Admission Date: April 05, 2025 Subjective Patient was seen and personally examined. Good night overnight slept better. Still with bowel issues but less pronounced. No chest pains. Telemetry with brief runs of MAT and complex ventricular ectopy (patient usual baseline) No dizziness lightheadedness chest pain or discomfort Review of Systems Review of Systems: All systems reviewed & are unremarkable except as noted in Subjective Physical Exam Constitutional: no acute distress Eyes: PERRL, conjunctivae normal, anicteric sclerae ENMT: external ear and nose normal, oropharynx normal Neck: trachea midline, no thyromegaly Respiratory: normal respiratory effort, lungs clear to auscultation Cardiovascular: Rate/Rhythm: + tachycardic Heart Sounds: normal S1 and normal S2 Palpation: normal PMI Vessels: no JVD Extremities: no edema Gastrointestinal (Abdomen): Inspection/Auscultation: + abdomen distended Percussion/Palpation: abdomen nontender Musculoskeletal: no cyanosis or clubbing, extremities motor strength 5/5 Neurologic: PERRL, EOMI, accommodation nl, no face palsy, no dysarthria Results & Data Vital Signs (Past 12 Hours) Vital Signs Temp Pulse Resp BP Pulse Ox 04/07/25 06:00 105 H 20 97 04/07/25 06:00 109/74 04/07/25 06:00 109/74 04/07/25 04:23 36.9 C 105/56 L 04/07/25 04:23 105/56 L 04/07/25 04:00 110 H 22 04/06/25 23:33 98 H Laboratory Results Laboratory Results - last 24 hr 04/06/25 04/06/25 04/06/25 08:36 11:39 11:49 WBC RBC Hgb 11.4 L Hct 35.7 L MCV MCH MCHC RDW Std Deviation RDW Coeff of Tavo Plt Count MPV Immature Gran % (Auto) Neut % (Auto) Lymph % (Auto) [place] % (Auto) Eos % (Auto) Baso % (Auto) Neut # (Auto) Lymph # (Auto) [place] # (Auto) Eos # (Auto) Baso # (Auto) Immature Gran # (Auto) Sodium Potassium Chloride Carbon Dioxide Anion Gap BUN Creatinine Est Cr Clr Drug Dosing eGFR BUN/Creatinine Ratio Glucose POC Glucose 122 H Calcium Magnesium Iron TIBC Transferrin Transferrin % Sat Cortisol AM Sample Urine Osmolality Ur Random Creatinine Urine Sodium Urine Potassium Urine Chloride Giardia Antigen SEE NOTE 04/06/25 04/06/25 04/07/25 16:16 20:17 04:19 WBC 4.37 L RBC 4.65 L Hgb 10.9 L Hct 34.4 L MCV 74.0 L MCH 23.4 L MCHC 31.7 L RDW Std Deviation 46.9 H RDW Coeff of Tavo 17.7 H Plt Count 265 MPV 9.3 L Immature Gran % (Auto) 0.7 Neut % (Auto) 86.7 Lymph % (Auto) 7.1 [place] % (Auto) 2.7 Eos % (Auto) 2.3 Baso % (Auto) 0.5 Neut # (Auto) 3.79 Lymph # (Auto) 0.31 L [place] # (Auto) 0.12 Eos # (Auto) 0.10 Baso # (Auto) 0.02 Immature Gran # (Auto) 0.03 Sodium 130 L Potassium 3.2 L Chloride 100 Carbon Dioxide 20 L Anion Gap 10 BUN 16 Creatinine 0.68 Est Cr Clr Drug Dosing 117.5 eGFR 101.25 BUN/Creatinine Ratio 23.5 H Glucose 92 POC Glucose 113 H 139 H Calcium 7.4 L Magnesium 1.9 Iron 12 L TIBC 256 Transferrin 183 L Transferrin % Sat 5 L Cortisol AM Sample Urine Osmolality Ur Random Creatinine Urine Sodium Urine Potassium Urine Chloride Giardia Antigen 04/07/25 04/07/25 04/07/25 07:18 08:33 08:55 WBC RBC Hgb Hct MCV MCH MCHC RDW Std Deviation RDW Coeff of Tavo Plt Count MPV Immature Gran % (Auto) Neut % (Auto) Lymph % (Auto) [place] % (Auto) Eos % (Auto) Baso % (Auto) Neut # (Auto) Lymph # (Auto) [place] # (Auto) Eos # (Auto) Baso # (Auto) Immature Gran # (Auto) Sodium Potassium Chloride Carbon Dioxide Anion Gap BUN Creatinine Est Cr Clr Drug Dosing eGFR BUN/Creatinine Ratio Glucose POC Glucose 104 H Calcium Magnesium Iron TIBC Transferrin Transferrin % Sat Cortisol AM Sample 22.06 Urine Osmolality 737 Ur Random Creatinine 106.0 Urine Sodium 11 Urine Potassium 21.9 Urine Chloride 22 Giardia Antigen PG Care Time/CCT Total # of Minutes Spent Total Time Spent with Patient: Total time spent is greater than 50% in coordination of care (as documented) at patient's floor/unit and/or counseling patient: Coding Level of Care Code 74895 SUB INP/OBS CARE 3/50MIN Diagnoses Narrow complex tachycardia I47.19 Dehydration E86.0 RIANA (acute kidney injury) N17.9 Peripheral vascular disease I73.9
[2025-04-07] MEDS: SODIUM CHLORIDE 0.9% 1,000 ML IV SCH (12:39)
[2025-04-07] MEDS: METOPROLOL TARTRATE 50 MG TAB PO SCH (15:35)
[2025-04-08 05:03] LABS: Hematocrit (blood only) 36.3 % (42.0-52.0); Hemoglobin 11.1 g/dL (14.0-18.0); Immature Granulocytes # (auto) 0.06 K/uL (0.01-0.20); Immature Granulocytes % (auto) 1.3 %; Mean Corpuscular Hemoglobin 23.0 pg (25.0-34.0); Mean Corpuscular Volume 75.3 fL (80.0-100.0); Platelet Count 259 K/uL (130-400); RDW Standard Deviation 47.5 fL (36.4-46.3); Red Blood Count 4.82 M/uL (4.70-6.10); White Blood Count 4.50 K/ul (4.8-10.8)
[2025-04-08 05:21] LABS: Anion Gap 7.0 (3-11); Blood Urea Nitrogen 9.0 mg/dl (6-23); Calcium 7.2 mg/dl (8.6-10.3); Carbon Dioxide 22.0 mmol/L (21-32); Chloride 104.0 mmol/L (98-107); Creatinine Clr Calc Pharmacy 133.1 ml/min; Glucose 103.0 mg/dl (70-99(Fasting)); Magnesium 2.1 mg/dl (1.7-2.4); Potassium 3.6 mmol/L (3.5-5.1); Sodium 133.0 mmol/L (136-145)
--- NOTE | 2025-04-08 06:26 | Electrocardiogram Report ---
Test Reason : Blood Pressure : */* mmHG Vent. Rate : 188 BPM Atrial Rate : * BPM P-R Int : * ms QRS Dur : 76 ms QT Int : 236 ms P-R-T Axes : * 71 248 degrees QTcB Int : 417 ms Atrial fibrillation with rapid ventricular response with premature ventricular or aberrantly conducte d complexes Abnormal ECG When compared with ECG of 23-Jan-2018 09:00, Atrial fibrillation has replaced Sinus rhythm Vent. rate has increased by 115 bpm Confirmed by Tom Aiken ([id number]) on 04/08/2025 6:25:53 AM Referred By: REFERRED SELF Confirmed By: Tom Aiken
--- NOTE | 2025-04-08 06:31 | Electrocardiogram Report ---
Test Reason : Blood Pressure : */* mmHG Vent. Rate : 116 BPM Atrial Rate : 182 BPM P-R Int : * ms QRS Dur : 86 ms QT Int : 334 ms P-R-T Axes : * 51 -34 degrees QTcB Int : 464 ms Sinus rhythm with frequent Premature atrial complexes and PVCs Anterior infarct , age undetermined Abnormal ECG When compared with ECG of 05-Apr-2025 14:29, Sinus rhythm has replaced Atrial fibrillation ST no longer depressed in Anterior leads Vent. rate has decreased by 72 bpm Confirmed by Tom Aiken ([id number]) on 04/08/2025 6:30:36 AM Referred By: REFERRED SELF Confirmed By: Tom Aiken
--- NOTE | 2025-04-08 06:32 | Electrocardiogram Report ---
Test Reason : Blood Pressure : */* mmHG Vent. Rate : 96 BPM Atrial Rate : 96 BPM P-R Int : 136 ms QRS Dur : 80 ms QT Int : 374 ms P-R-T Axes : 52 46 -84 degrees QTcB Int : 473 ms Sinus rhythm with frequent with occasional , and consecutive Premature atrial complexes and Premature ventricular complexes Septal infarct (cited on or before 05-Apr-2025) Abnormal ECG When compared with ECG of 05-Apr-2025 18:47, Questionable change in initial forces of Anterior leads Inverted T waves have replaced nonspecific T wave abnormality in Inferior leads Confirmed by Tom Aiken ([id number]) on 04/08/2025 6:32:12 AM Referred By: REFERRED SELF Confirmed By: Tom Aiken
--- NOTE | 2025-04-08 06:35 | Electrocardiogram Report ---
Test Reason : Blood Pressure : */* mmHG Vent. Rate : 99 BPM Atrial Rate : 86 BPM P-R Int : * ms QRS Dur : 84 ms QT Int : 388 ms P-R-T Axes : * 46 -68 degrees QTcB Int : 497 ms Sinus rhythm with frequent , and consecutive Premature atrial complexes and PVCs Nonspecific ST and T wave abnormality Prolonged QT Abnormal ECG When compared with ECG of 06-Apr-2025 05:51, No significant change Confirmed by Tom Aiken ([id number]) on 04/08/2025 6:34:31 AM Referred By: REFERRED SELF Confirmed By: Tom Aiken
--- NOTE | 2025-04-08 10:23 | Hospitalist Progress Note ---
Date of Service April 08, 2025 Assessment & Plan (1) Atrial fibrillation with rapid ventricular response: (2) Acute hyponatremia: (3) Dehydration: (4) PAD (peripheral artery disease): (5) Diabetes mellitus, type 2: (6) Hypertension: (7) Pericardial effusion: (8) CAD (coronary artery disease): Plan This is a 69 y/o male with DM2, PAD, known pericardial effusion, hx NSVT, CAD, HTN, dyslipidemia, presented to the ED with recurrent falls and weakness. In the ED, pt was found to have new-onset atrial fibrillation with rapid ventricular response with rates in the 180s. He was given a total of Lopressor 15 mg IV, then 10 mg of diltiazem - rate transiently dropped to the 130s before returning to the 170s to 180s. He was started on a diltiazem gtt and referred for admission. He was admitted to medical floor; was transferred to ICU due to low blood pressure while on Cardizem drip. Patient underwent electrical cardioversion for unstable tachycardia on 04/05/2025. Narrow complex tachycardia Patient presents with multiple falls; was found to have atrial tachycardia/fibrillation with a rate in 180s Was transferred to ICU on 04/05 for low blood pressure; underwent emergent cardioversion but reverted back to narrow complex tachycardia Echocardiogram shows EF of 55 to 60% with moderate concentric LVH. Transferred out of ICU on April 06, 2025 Cardizem weaned off; currently on metoprolol-dose titrated to 50mg tid with improvement in rate Continue monitor on telemetry #Chronic diarrhea and rectal bleeding Has diarrhea for several months Reports history of intermittent rectal bleeding Plan for flexible sigmoidoscopy today. Discussed with patient's vascular provider( Adela AMAYA) that he saw back in August 2024 regarding the antiplatelet agent. They are okay with stopping one of the agents; will stop aspirin and resume Plavix after patient undergoes flex sigmoidoscopy and GI clears. Hypokalemiarepleted Hyponatremia- Urinary studies reviewed; hypovolemic hyponatremia. improvement note with iv hydration. Abnormal chest CT- Chest CT done on 04/05 shows ground glass lesion at right apex measuring up to 10 mm and 8 mm subsolid nodule in left lower lobe that have increased in size dating back to 2022. I discussed these findings with the patient on 04/07/2025. We discussed that he needs pulmonology referral as outpatient after discharge and repeat CT chest in 3 months. He verbalized understanding #Type 2 Diabetes - Holding oral medications, Ozempic - Insulin sliding scale - Diabetic diet as tolerated - BSG ACHS #PAD - s/p iliac stent - Aspirin and plavix on hold for possible GI bleed. plan to resumed plavix after GI clearence. CODE STATUS full DVT prophylaxis on hold for possible rectal bleed Time spent evaluating patient, direct bedside care, chart review, placing orders, interpretation of diagnostic studies, discussion with consultants, patient, and family members, as well as other required patient management activities is 50 minutes Please note the above document was generated using voice recognition software. It may contain grammatical, syntax or spelling errors. Any formal questions or concerns about the content, text or information contained within the body of this dictation should be directly addressed to the provider for clarification Admission and Anticipated Discharge Date Admission Date: April 05, 2025 Subjective Patient seen and examined at bedside. He is comfortable lying in the bed; not in distress. His heart rate continues to improve with rates around 80s to 90s. No chest pain or shortness of breath. Reports intermittent rectal bleeding Review of Systems Review of Systems: All systems reviewed & are unremarkable except as noted in Subjective Physical Exam Physical Exam: Constitutional: Alert oriented x 3; not in distress. Respiratory: Bilateral vesicular breath sound Cardiovascular: Irregular, no murmur, no edema Vessels: no JVD or carotid bruit Chest: normal inspection of chest Abdomen: normal bowel sounds, soft, nontender, no hepatosplenomegaly Musculoskeletal: no cyanosis or clubbing, extremities motor strength 5/5 Skin: no rashes, warm and dry normal turgor Neurologic: PERRL, EOMI, accommodation nl, no face palsy, no dysarthria CN's II- XI intact bilaterally and moves all extremities Psychiatric: A+Ox3, euthymic affect Results & Data Results & Data Vital Signs (Past 12 Hours) Vital Signs Temp Pulse Pulse Resp BP BP Pulse Ox 04/08/25 08:18 36.7 C 90 18 103/57 L 99 04/08/25 08:00 86 04/08/25 04:10 36.4 C L 04/08/25 04:00 80 22 97 04/08/25 03:38 116/77 04/08/25 03:38 116/77 04/08/25 03:38 116/77 04/08/25 03:38 116/77 04/08/25 03:38 116/77 04/08/25 03:27 92 H 24 04/08/25 00:00 86 04/07/25 23:18 97 04/07/25 23:15 36.4 C L 04/07/25 23:09 120/82 04/07/25 23:09 120/82 04/07/25 23:09 120/82 04/07/25 23:09 120/82 04/07/25 23:09 88 13 04/07/25 23:00 90 14 04/07/25 22:30 100 H 22 O2 Del Method 04/08/25 08:18 Room Air 04/08/25 08:00 04/08/25 04:10 04/08/25 04:00 04/08/25 03:38 04/08/25 03:38 04/08/25 03:38 04/08/25 03:38 04/08/25 03:38 04/08/25 03:27 04/08/25 00:00 04/07/25 23:18 Room Air 04/07/25 23:15 04/07/25 23:09 04/07/25 23:09 04/07/25 23:09 04/07/25 23:09 04/07/25 23:09 04/07/25 23:00 04/07/25 22:30
--- NOTE | 2025-04-08 10:34 | Anesthesiology Consultation ---
Date of Service April 08, 2025 Assessment & Plan Chart Review Chart Review: Acceptable Risk for Surgery and Patient NOT seen in Pre Admission Testing Consults Requested none ASA ASA4 Proposed Anesthesia Anesthesia Type: MAC History Surgery Operation Date: 04/08/25 16:30 Proposed Procedures p Flexible Sigmoidoscopy Dr. Дмитрий Choe MD Height/Weight Height: 5 ft 10 in Weight: 90.5 kg Allergies Allergy/AdvReac Type Severity Reaction Status Date / Time Penicillins Allergy Mild MOUTH SORES Verified 07/05/21 10:16 Medications Home Medications Medication Instructions Recorded Confirmed Last Taken aspirin 81 mg tablet,delayed 81 mg PO QDD 01/20/18 04/05/25 04/03/25 release magnesium oxide 400 mg PO QDD 01/20/18 04/05/25 02/09/18 08:00 metformin 500 mg tablet 1,000 mg PO BID 01/20/18 04/05/25 04/05/25 cyanocobalamin (vitamin B-12) 1,000 mcg sublingual DAILY 07/05/21 04/05/25 Unknown 1,000 mcg sublingual tablet empagliflozin 25 mg tablet 25 mg PO DAILY 07/05/21 04/05/25 04/04/25 (Jardiance) verapamil 120 mg tablet,extended 120 mg PO QPM 07/05/21 04/05/25 04/03/25 release clopidogrel 75 mg tablet 75 mg PO DAILY 04/05/25 04/05/25 04/05/25 rosuvastatin 20 mg tablet 20 mg PO DAILY 04/05/25 04/05/25 04/05/25 semaglutide 1 mg/dose (4 mg/3 mL) 1 mg subcut WK 04/05/25 04/05/25 03/27/25 subcutaneous pen injector (Ozempic) Active Medications Generic Name Dose Route Start Last Admin Trade Name Freq PRN Reason Stop Dose Admin Diltiazem HCl 125 mg/ Dextrose 125 mls @ 15 mls/hr 04/05/25 15:45 04/06/25 11:36 IV 05/05/25 15:44 Infused .[id number] MYA Titration Protocol 15 MG/HR Insulin Aspart 0 units 04/06/25 11:30 04/08/25 07:20 Insulin Aspart Per Unit Charge SC 05/06/25 11:29 Not Given ACHS [facility] Metoprolol Tartrate 50 mg 04/07/25 14:00 04/08/25 08:41 Metoprolol Tartrate 50 Mg Tab PO 05/07/25 13:59 50 mg TID MYA Administration Potassium Chloride 40 meq 04/07/25 09:00 04/08/25 08:41 Potassium Chloride Crtab 20 Meq Tabcr PO 04/08/25 21:01 40 meq BID MYA Administration Rosuvastatin Calcium 20 mg 04/06/25 09:00 04/08/25 08:41 Rosuvastatin Calcium 20 Mg Tab PO 05/06/25 08:59 20 mg DAILY MYA Administration Past Medical History Medical History CAD (coronary artery disease) Gout NSVT (nonsustained ventricular tachycardia) PAD (peripheral artery disease) Pericardial effusion HX OF; FOLLOWS WITH CARDIO PVCs (premature ventricular contractions) Obesity Degenerative disc disease CERVICAL Hypertension Hyperlipidemia NIDDM Hx/o colitis RIANA Hx/o A Fib ASCVD Exercise / Class Metabolic Activity III < 4 Walking/Shop/Light housework Past Family History Family History Mother Myocardial infarction at 64 Brother Myocardial infarction Father Prostate cancer Grandfather (Paternal) Prostate cancer Past Surgical History Surgical History S/P cervical spinal fusion Status post insertion of iliac artery stent History of cardiac cath History of colonoscopy History of tonsillectomy Past Anesthesia History No Hx of Anesthesia Complications and No Family Hx of Anesthesia Complications History of PONV No Hx of PONV and No Hx of Motion Sickness Social History Smoking Status: Never smoker Do You Dip or Chew Tobacco: No Hx Alcohol Use: No Hx Substance Use: No substance use type: does not use Physical Exam Vital Signs Last Vital Signs Temp 36.7 C 04/08/25 08:18 Pulse 90 04/08/25 08:18 Resp 18 04/08/25 08:18 BP 103/57 L 04/08/25 08:18 Pulse Ox 99 04/08/25 08:18 O2 Del Method Room Air 04/08/25 08:18 O2 Flow Rate 2 04/05/25 18:54 Testing Laboratory Results 04/08/25 04:38 04/08/25 04:38 PT 13.7 Seconds (9.0-12.0) H 04/05/25 14:27 INR 1.3 (0.9-1.1) H 04/05/25 14:27 APTT 28 Seconds (21-31) 04/05/25 14:27 Urine Color Yellow 04/05/25 23:55 Urine Appearance Clear (Clear) 04/05/25 23:55 Urine pH 5.5 (4.5-7.5) 04/05/25 23:55 Ur Specific [place] > 1.045 (1.000-1.030) H 04/05/25 23:55 Urine Protein Trace (Negative) H 04/05/25 23:55 Urine Glucose (UA) 3+ (Negative) H 04/05/25 23:55 Urine Ketones 3+ (Negative) H 04/05/25 23:55 Urine Nitrite Negative (Negative) 04/05/25 23:55 Ur Leukocyte Esterase Negative (Negative) 04/05/25 23:55 Urine WBC (Auto) 0-5 /hpf (0-5) 04/05/25 23:55 Urine RBC (Auto) 0-2 /hpf (0-2) 04/05/25 23:55 U Hyaline Cast (Auto) 0-2 /lpf (0-2) 04/05/25 23:55 U Epithel Cells (Auto) 0-2 /hpf (0-2) 04/05/25 23:55 Urine Bacteria (Auto) None Seen (None Seen) 04/05/25 23:55 Electrocardiogram Date: 04/07/25 Findings: + NSR @ (@ 99 w/ frequent PAC's and PVC's;prolonged QT) and + NSST changes Chest X-Ray Date: 04/05/25 Findings: + cardiomegaly Echocardiogram Date: 04/06/25 EF: 55% LV Function: normal RWMA: + none Other Findings: + LVH (mod.) and + diastolic dysfunction (Grade 1) Valvular Disease: + no significant valvular disease Cardiac Catheterization Date: 07/05/21 Findings: + RCA (20% mid) and + LCX (NL) Location: LAD-20% ostial;20-30% mid after D2;D2 ostial 30%
--- NOTE | 2025-04-08 12:23 | History & Physical Bridge Note ---
Date of Service April 08, 2025 History & Physical Bridge Note I have examined the patient, reviewed the History & Physical and in the interval since the performance of the History & Physical I have noted the following changes of clinical significance: no changes noted. patient with some ongoing diarrhea last evening. no blood in the stools or melena. less nausea. no chest pain/sob. currently npo. - will plan to proceed with flex sig today. Supervising Physician Co-Signing Physician Notes Patient with colitis persistent for 6 months. Tapwater enema today. He is for flexible sigmoidoscopy to biopsy colitis established diagnosis. Risks of procedure including bleeding and colon wall injury reviewed informed consent obtained
--- NOTE | 2025-04-08 14:17 | Cardiology Progress Note ---
Date of Service April 08, 2025 Assessment & Plan (1) Narrow complex tachycardia: Plan: Multifocal atrial tachycardia (2) Dehydration: (3) RIANA (acute kidney injury): (4) Peripheral vascular disease: Plan Narrow complex tachycardia patient is a 69-year-old male with known atrial and ventricular arrhythmias presenting with extended illness of several months in duration with increasing frequency diarrhea and hematochezia with fecal urgency clinical course complicated by dizziness and falls Patient presented with electrolyte disturbance and narrow complex tachycardia with rapid ventricular response hemodynamically unstable. Patient underwent appropriate synchronized electrical cardioversion and continues to demonstrate episodes of multifocal atrial tachycardia. Echocardiogram without acute change from prior studies with preserved LV systolic function no significant valvular disease, chronic small nonhemodynamic pericardial effusion Recommendations: Begin beta-jenn therapy with metoprolol to tartrate 25 every 6 hours. Previously on verapamil though current rhythm more likely to be responsive to beta-jenn therapies Discontinue IV diltiazem Continue to treat electrolyte disturbances, keep potassium greater than 4 Refer for GI evaluation 04/07/2025 Patient slowly improving. Atrial ventricular arrhythmias improved with beta- jenn therapy 1. Narrow complex tachycardia/multifocal atrial tachycardia prior history of nonsustained ventricular tachycardia. Will titrate beta-jenn to metoprolol t tartrate 50 mg 3 times daily Continue to optimize electrolytes, potassium greater than 4 No cardiac contraindications to endoscopic procedures 04/08/2025 Patient remaining hemodynamically stable tolerating beta-jenn with improved heart rate and atrial ventricular ectopy/arrhythmias. Recommendations: Continue metoprolol tartrate 50 mg 3 times daily will likely transition to metoprolol succinate once GI procedures complete. Microcytic anemia in evaluation Admission and Anticipated Discharge Date Admission Date: April 05, 2025 Subjective Patient seen, chart, telemetry reviewed. Sigmoidoscopy pending. Notes no complaints Telemetry with improved atrial tachycardia and ventricular ectopy Physical Exam Constitutional: no acute distress Cardiovascular: Rate/Rhythm: regular rate and regular rhythm Results & Data Vital Signs (Past 12 Hours) Vital Signs Temp Pulse Pulse Resp BP BP Pulse Ox 04/08/25 11:41 36.8 C 85 16 102/60 97 04/08/25 08:18 36.7 C 90 18 103/57 L 99 04/08/25 08:00 86 04/08/25 04:10 36.4 C L 04/08/25 04:00 80 22 97 04/08/25 03:38 116/77 04/08/25 03:38 116/77 12/18/25 03:38 116/77 04/08/25 03:38 116/77 04/08/25 03:38 116/77 04/08/25 03:27 92 H 24 O2 Del Method 04/08/25 11:41 Room Air 04/08/25 08:18 Room Air 04/08/25 08:00 04/08/25 04:10 04/08/25 04:00 04/08/25 03:38 04/08/25 03:38 04/08/25 03:38 04/08/25 03:38 04/08/25 03:38 04/08/25 03:27 Laboratory Results Laboratory Results - last 24 hr 04/07/25 04/07/25 04/08/25 16:15 20:40 04:38 WBC 4.50 L RBC 4.82 Hgb 11.1 L Hct 36.3 L MCV 75.3 L MCH 23.0 L MCHC 30.6 L RDW Std Deviation 47.5 H RDW Coeff of Tavo 17.9 H Plt Count 259 MPV 9.4 Immature Gran % (Auto) 1.3 Neut % (Auto) 82.3 Lymph % (Auto) 8.9 [place] % (Auto) 4.9 Eos % (Auto) 2.2 Baso % (Auto) 0.4 Neut # (Auto) 3.70 Lymph # (Auto) 0.40 L [place] # (Auto) 0.22 Eos # (Auto) 0.10 Baso # (Auto) 0.02 Immature Gran # (Auto) 0.06 Sodium 133 L Potassium 3.6 Chloride 104 Carbon Dioxide 22 Anion Gap 7 BUN 9 Creatinine 0.60 Est Cr Clr Drug Dosing 133.1 eGFR 105.15 BUN/Creatinine Ratio 15.0 Glucose 103 H POC Glucose 108 H 113 H Calcium 7.2 L Ionized Calcium Magnesium 2.1 04/08/25 04/08/25 07:05 12:37 WBC RBC Hgb Hct MCV MCH MCHC RDW Std Deviation RDW Coeff of Tavo Plt Count MPV Immature Gran % (Auto) Neut % (Auto) Lymph % (Auto) [place] % (Auto) Eos % (Auto) Baso % (Auto) Neut # (Auto) Lymph # (Auto) [place] # (Auto) Eos # (Auto) Baso # (Auto) Immature Gran # (Auto) Sodium Potassium Chloride Carbon Dioxide Anion Gap BUN Creatinine Est Cr Clr Drug Dosing eGFR BUN/Creatinine Ratio Glucose POC Glucose 96 Calcium Ionized Calcium 1.02 L Magnesium PG Care Time/CCT Total # of Minutes Spent Total Time Spent with Patient: Total time spent is greater than 50% in coordination of care (as documented) at patient's floor/unit and/or counseling patient: Coding Level of Care Code 14049 SUB INP/OBS CARE 3/50MIN Diagnoses Narrow complex tachycardia I47.19 Dehydration E86.0 RIANA (acute kidney injury) N17.9 Peripheral vascular disease I73.9
[2025-04-08] MEDS ORDERED: ATROPINE SULFATE 0.1 MG/ML 10ML SYR IV PRN (14:47)
--- NOTE | 2025-04-08 18:26 | Communication Note ---
Date of Service: April 08, 2025 Flexible sigmoidoscopy Severe colitis from the rectum to the length of scope insertion. Consistent with ulcerative colitis however there was fairly extensive pseudomembrane formation raising the possibility of C. difficile. Aspirated for C. difficile biopsies. Can start mesalamine while awaiting stool aspirate and biopsies.
--- NOTE | 2025-04-08 18:34 | GI REPORT ---
[facility] [address] Patient: FRANCISCO BISHOP : 1955 Sex at : Male Age: 69 Years Procedure: Flexible Sigmoidoscopy Date: 04/08/2025 Attending Physician: See Choe MD Referring MD: Otis Bryant Md Indications: - Pancolitis Medications: - Monitored Anesthesia Care Complications: - No immediate complications. Estimated Blood Loss: - Estimated blood loss was minimal. Procedure: - The pediatric colonoscope was introduced through the anus and advanced to the descending colon. - The flexible sigmoidoscopy was accomplished without difficulty. - The patient tolerated the procedure well. - The quality of the bowel preparation was fair. Findings: - The digital rectal exam was normal. Pertinent negatives include no palpable rectal lesions. - From the anus to the length of scope insertion mid descending a proximal descending colon there is severe mucosal ulcerations friability and contact bleeding. Appearance could be consistent with ulcerative colitis. Somewhat atypical was the severity of the pseudomembrane formation present. Also disease to look a little bit worse as you went proximally. Biopsies performed in the left colon. Aspirate performed for C. difficile. - At approximately 20 cm from the rectum there is a small from the polypoid lesion. Consistent with small adenoma. This was not removed in this gentleman with a very sick appearing colon. Recommend follow-up in 3 to 4 months posttreatment of his colitis for polypectomy. Impression: - Await aspirate for C. difficile. Await biopsies for ulcerative colitis. Begin mesalamine pending test results. - Preparation of the colon was fair. - From the anus to the length of scope insertion mid descending a proximal descending colon there is severe mucosal ulcerations friability and contact bleeding. Appearance could be consistent with ulcerative colitis. Somewhat atypical was the severity of the pseudomembrane formation present. Also disease to look a little bit worse as you went proximally. Biopsies performed in the left colon. Aspirate performed for C. difficile. - At approximately 20 cm from the rectum there is a small from the polypoid lesion. Consistent with small adenoma. This was not removed in this gentleman with a very sick appearing colon. Recommend follow-up in 3 to 4 months posttreatment of his colitis for polypectomy. - Biopsies pending Recommendation: Procedure Code(s): - 20533, Sigmoidoscopy, flexible; diagnostic, including collection of specimen(s) by brushing or washing, when performed (separate procedure) CPT(R) - 2025 copyright [employer]. All Rights Reserved. The CPT codes, CCI edits and ICD codes generated are intended as suggestions and were generated based on input data. These codes are preliminary and upon inpatient coder review may be revised to meet current compliance and payer requirements. The provider is responsible for the final determination of appropriate codes, and modifiers. See Choe MD This document has been electronically signed. Note Initiated:04/08/2025 Note Completed:04/08/2025 6:32 PM \\[id number]
--- NOTE | 2025-04-08 19:18 | Anesthesiology Progress Note ---
Date of Service April 08, 2025 Anesthesia Post Procedure Vital Signs Vital Signs: Temp Pulse Pulse Resp BP BP Pulse Ox 04/08/25 19:10 87 20 121/67 99 04/08/25 18:55 97.9 F 89 20 127/73 99 04/08/25 18:45 87 22 115/64 100 04/08/25 18:38 96.8 F L 92 H 20 111/59 L 96 04/08/25 16:46 88 18 125/73 100 04/08/25 14:34 97.3 F L 83 16 104/65 96 04/08/25 11:41 98.2 F 85 16 102/60 97 04/08/25 08:18 98.1 F 90 18 103/57 L 99 04/08/25 08:00 86 04/08/25 04:10 97.5 F L 04/08/25 04:00 80 22 97 04/08/25 03:38 116/77 04/08/25 03:38 116/77 04/08/25 03:38 116/77 04/08/25 03:38 116/77 04/08/25 03:38 116/77 04/08/25 03:27 92 H 24 04/08/25 00:00 86 04/07/25 23:18 97 04/07/25 23:15 97.5 F L 04/07/25 23:09 120/82 04/07/25 23:09 120/82 04/07/25 23:09 120/82 04/07/25 23:09 120/82 04/07/25 23:09 88 13 04/07/25 23:00 90 14 04/07/25 22:30 100 H 22 04/07/25 20:38 115/73 04/07/25 20:38 115/73 04/07/25 20:38 115/73 04/07/25 20:38 115/73 04/07/25 20:38 115/73 04/07/25 20:36 98 H 12 97 04/07/25 19:30 97.7 F O2 Del Method O2 Flow Rate 04/08/25 19:10 Room Air 04/08/25 18:55 Room Air 04/08/25 18:45 Nasal Cannula 4 04/08/25 18:38 Nasal Cannula 4 04/08/25 16:46 Room Air 04/08/25 14:34 Room Air 04/08/25 11:41 Room Air 04/08/25 08:18 Room Air 04/08/25 08:00 04/08/25 04:10 04/08/25 04:00 04/08/25 03:38 04/08/25 03:38 04/08/25 03:38 04/08/25 03:38 04/08/25 03:38 04/08/25 03:27 04/08/25 00:00 04/07/25 23:18 Room Air 04/07/25 23:15 04/07/25 23:09 04/07/25 23:09 04/07/25 23:09 04/07/25 23:09 04/07/25 23:09 04/07/25 23:00 04/07/25 22:30 04/07/25 20:38 04/07/25 20:38 04/07/25 20:38 04/07/25 20:38 04/07/25 20:38 04/07/25 20:36 Room Air 04/07/25 19:30 Transfer of Care Handoff Completed per policy Notes Mental Status: alert / awake / arousable and participated in evaluation Patient Amnestic to Procedure: Yes Nausea / Vomiting: adequately controlled Pain: adequately controlled Airway Patency, RR, SpO2: stable & adequate BP & HR: stable & adequate Hydration State: stable & adequate Anesthetic Complications: no major complications apparent and Pt Satisfied with anesthetic care
[2025-04-08 20:07] LABS: Cdiff Toxin B Gene (2yr or >) Negative Cdiff Gene (Neg)
[2025-04-08] MEDS: PROPOFOL IV EMULSION 10 MG/ML 20 ML VIAL IV ONE (21:06)
[2025-04-08] MEDS: LIDOCAINE 2% 2 ML VIAL/AMP(20MG/ML) INFIL ONE (21:06)
[2025-04-08] MEDS: MESALAMINE 800 MG TABCR PO SCH (21:10)
[2025-04-09 08:13] LABS: Hematocrit (blood only) 37.5 % (42.0-52.0); Hemoglobin 11.5 g/dL (14.0-18.0); Immature Granulocytes # (auto) 0.04 K/uL (0.01-0.20); Immature Granulocytes % (auto) 0.7 %; Mean Corpuscular Hemoglobin 23.3 pg (25.0-34.0); Mean Corpuscular Volume 76.1 fL (80.0-100.0); Platelet Count 307 K/uL (130-400); RDW Standard Deviation 50.6 fL (36.4-46.3); Red Blood Count 4.93 M/uL (4.70-6.10); White Blood Count 6.06 K/ul (4.8-10.8)
[2025-04-09 08:32] LABS: Anion Gap 8.0 (3-11); Blood Urea Nitrogen 10.0 mg/dl (6-23); Calcium 7.7 mg/dl (8.6-10.3); Carbon Dioxide 21.0 mmol/L (21-32); Chloride 105.0 mmol/L (98-107); Creatinine Clr Calc Pharmacy 117.9 ml/min; Glucose 128.0 mg/dl (70-99(Fasting)); Potassium 4.4 mmol/L (3.5-5.1); Sodium 134.0 mmol/L (136-145)
[2025-04-09] MEDS: CLOPIDOGREL BISULFATE 75 MG TAB PO SCH (10:15)
--- NOTE | 2025-04-09 10:34 | Gastroenterology Progress Note ---
Date of Service April 09, 2025 Assessment & Plan (1) Colitis: Plan Patient feels somewhat better. still loose stools but less urgency. - await biopsy results. - continue with mesalamine 1600mg bid. - we discussed a trial of budesonide but patient wishes to hold off. Admission and Anticipated Discharge Date Admission Date: April 05, 2025 Supervising Physician Co-Signing Physician Notes Patient feeling better. States less abdominal cramping... Not clear that this would related patient wishes to wait for steroids at this time. C. difficile is negative. Discharged on 1600 mg of mesalamine PO BID biopsies: Pending Can follow-up in GI clinic 4 weeks. GI signed off reconsult as needed Subjective Patient tells me that he feels overall better. no nausea issues. no emesis. he tells me he is tolerating diet. He has had continued loose stools, but less urgency. no abdominal pain. Flex sig 04/08/25 - Severe colitis from the rectum to the length of scope insertion. c diff negative. Review of Systems Review of Systems: All systems reviewed & are unremarkable except as noted in HPI & below Physical Exam Constitutional: WD/WN, vitals as above Respiratory: normal respiratory effort, lungs clear to auscultation Cardiovascular: Rate/Rhythm: regular rate and regular rhythm Gastrointestinal (Abdomen): normal bowel sounds, soft, nontender, no hepatosplenomegaly Psychiatric: Orientation: alert and oriented x 3 Affect: euthymic affect Results & Data Results & Data Vital Signs (Past 12 Hours) Vital Signs Temp Pulse Pulse Resp BP BP Pulse Ox 04/09/25 07:13 98.6 F 61 16 119/74 94 04/09/25 05:46 95 H 04/09/25 04:31 98.2 F 100 H 18 114/58 L 99 04/08/25 22:41 99.9 F H 85 18 108/65 95 O2 Del Method 04/09/25 07:13 Room Air 04/09/25 05:46 04/09/25 04:31 Room Air 04/08/25 22:41 Room Air Coding Level of Care Code 22102 SUB INP/OBS CARE 05/16MIN Diagnoses Colitis K52.9
--- NOTE | 2025-04-09 10:56 | Hospitalist Progress Note ---
Date of Service April 09, 2025 Assessment & Plan (1) Atrial fibrillation with rapid ventricular response: (2) Acute hyponatremia: (3) Dehydration: (4) PAD (peripheral artery disease): (5) Diabetes mellitus, type 2: (6) Hypertension: (7) Pericardial effusion: (8) CAD (coronary artery disease): Plan This is a 69 y/o male with DM2, PAD, known pericardial effusion, hx NSVT, CAD, HTN, dyslipidemia, presented to the ED with recurrent falls and weakness. In the ED, pt was found to have new-onset atrial fibrillation with rapid ventricular response with rates in the 180s. He was given a total of Lopressor 15 mg IV, then 10 mg of diltiazem - rate transiently dropped to the 130s before returning to the 170s to 180s. He was started on a diltiazem gtt and referred for admission. He was admitted to medical floor; was transferred to ICU due to low blood pressure while on Cardizem drip. Patient underwent electrical cardioversion for unstable tachycardia on 04/05/2025. Narrow complex tachycardia Patient presents with multiple falls; was found to have atrial tachycardia/MAT with a rate in 180s Was transferred to ICU on 04/05 for low blood pressure; underwent emergent cardioversion but reverted back to narrow complex tachycardia Echocardiogram shows EF of 55 to 60% with moderate concentric LVH. Continue on metoprolol #Chronic diarrhea and rectal bleeding Possible ulcerative colitis Underwent flex sigmoiscopy on everal mucosal ulceration with friability and contact bleeding. C. difficile negative. Biopsy pending Started on mesalamine 1600 twice a day Hypokalemiarepleted Hyponatremia- Urinary studies reviewed; hypovolemic hyponatremia. improvement note with iv hydration. Abnormal chest CT- Chest CT done on 04/05 shows ground glass lesion at right apex measuring up to 10 mm and 8 mm subsolid nodule in left lower lobe that have increased in size dating back to 2022. I discussed these findings with the rossy dsouza on 04/07/2025. We discussed that he needs pulmonology referral as outpatient after discharge and repeat CT chest in 3 months. He verbalized understanding #Type 2 Diabetes - Holding oral medications, Ozempic - Insulin sliding scale - Diabetic diet as tolerated - BSG ACHS #PAD - s/p iliac stent - restarted on plavix; discussed with patient outpatient vascular team. aspirin dced. CODE STATUS full DVT prophylaxis on hold for possible rectal bleed Time spent evaluating patient, direct bedside care, chart review, placing o rders, interpretation of diagnostic studies, discussion with consultants, patient, and family members, as well as other required patient management activities is 50 minutes Please note the above document was generated using voice recognition software. It may contain grammatical, syntax or spelling errors. Any formal questions or concerns about the content, text or information contained within the body of this dictation should be directly addressed to the provider for clarification Admission and Anticipated Discharge Date Admission Date: April 05, 2025 Subjective Patient seen and examined at bedside. He is comfortable; not in distress. Continues to report diarrhea intermittently overnight as well. No abdominal pain/discomfort. No chest pain. Review of Systems Review of Systems: All systems reviewed & are unremarkable except as noted in Subjective Physical Exam Physical Exam: Constitutional: Alert oriented x 3; not in distress. Respiratory: Bilateral vesicular breath sound Cardiovascular: Irregular, no murmur, no edema Vessels: no JVD or carotid bruit Chest: normal inspection of chest Abdomen: normal bowel sounds, soft, nontender, no hepatosplenomegaly Musculoskeletal: no cyanosis or clubbing, extremities motor strength 5/5 Skin: no rashes, warm and dry normal turgor Neurologic: PERRL, EOMI, accommodation nl, no face palsy, no dysarthria CN's II- XI intact bilaterally and moves all extremities Psychiatric: A+Ox3, euthymic affect Results & Data Results & Data Vital Signs (Past 12 Hours) Vital Signs Temp Pulse Pulse Resp BP BP Pulse Ox 04/09/25 10:34 36.8 C 86 18 105/65 98 04/09/25 07:13 37 C 61 16 119/74 94 04/09/25 05:46 95 H 04/09/25 04:31 36.8 C 100 H 18 114/58 L 99 O2 Del Method 04/09/25 10:34 Room Air 04/09/25 07:13 Room Air 04/09/25 05:46 04/09/25 04:31 Room Air
--- NOTE | 2025-04-09 13:19 | Cardiology Progress Note ---
Date of Service April 09, 2025 Assessment & Plan (1) Narrow complex tachycardia: Plan: Multifocal atrial tachycardia (2) Dehydration: (3) RIANA (acute kidney injury): (4) Peripheral vascular disease: Plan Narrow complex tachycardia patient is a 69-year-old male with known atrial and ventricular arrhythmias presenting with extended illness of several months in duration with increasing frequency diarrhea and hematochezia with fecal urgency clinical course complicated by dizziness and falls Patient presented with electrolyte disturbance and narrow complex tachycardia with rapid ventricular response hemodynamically unstable. Patient underwent appropriate synchronized electrical cardioversion and continues to demonstrate episodes of multifocal atrial tachycardia. Echocardiogram without acute change from prior studies with preserved LV systolic function no significant valvular disease, chronic small nonhemodynamic pericardial effusion Recommendations: Begin beta-jenn therapy with metoprolol to tartrate 25 every 6 hours. Previously on verapamil though current rhythm more likely to be responsive to beta-jenn therapies Discontinue IV diltiazem Continue to treat electrolyte disturbances, keep potassium greater than 4 Refer for GI evaluation 04/07/2025 Patient slowly improving. Atrial ventricular arrhythmias improved with beta- jenn therapy 1. Narrow complex tachycardia/multifocal atrial tachycardia prior history of nonsustained ventricular tachycardia. Will titrate beta-jenn to metoprolol t tartrate 50 mg 3 times daily Continue to optimize electrolytes, potassium greater than 4 No cardiac contraindications to endoscopic procedures 04/08/2025 Patient remaining hemodynamically stable tolerating beta-jenn with improved heart rate and atrial ventricular ectopy/arrhythmias. Recommendations: Continue metoprolol tartrate 50 mg 3 times daily will likely transition to metoprolol succinate once GI procedures complete. Microcytic anemia in evaluation 04/09/2025 1. Narrow complex tachycardia/multifocal atrial tachycardia in the setting of acute illness, prior nonsustained ventricular tachycardia Patient to remain off verapamil. Transition metoprolol to tartrate to metoprolol succinate 75 mg twice per day 2. Atherosclerotic peripheral vascular disease: Agree with resuming clopidogrel as ordered, statin No further recommendations contact with questions Admission and Anticipated Discharge Date Admission Date: April 05, 2025 Subjective Patient seen and examined, chart, telemetry reviewed. Improved from day prior. Results of sigmoidoscopy noted No chest pains or chest discomfort. Atrial arrhythmias are much better con trolled. No hypotension Review of Systems Review of Systems: All systems reviewed & are unremarkable except as noted in Subjective Physical Exam Constitutional: no acute distress Eyes: PERRL, conjunctivae normal, anicteric sclerae ENMT: external ear and nose normal, oropharynx normal Neck: trachea midline, no thyromegaly Respiratory: normal respiratory effort, lungs clear to auscultation Cardiovascular: Rate/Rhythm: regular rate, regular rhythm and + tachycardic Heart Sounds: normal S1 and normal S2 Palpation: normal PMI Vessels: no JVD Extremities: no edema Gastrointestinal (Abdomen): Inspection/Auscultation: + abdomen distended Percussion/Palpation: abdomen nontender Musculoskeletal: no cyanosis or clubbing, extremities motor strength 5/5 Neurologic: PERRL, EOMI, accommodation nl, no face palsy, no dysarthria Results & Data Vital Signs (Past 12 Hours) Vital Signs Temp Pulse Pulse Resp BP BP Pulse Ox 04/09/25 10:34 36.8 C 86 18 105/65 98 04/09/25 07:13 37 C 61 16 119/74 94 04/09/25 05:46 95 H 04/09/25 04:31 36.8 C 100 H 18 114/58 L 99 O2 Del Method 04/09/25 10:34 Room Air 04/09/25 07:13 Room Air 04/09/25 05:46 04/09/25 04:31 Room Air PG Care Time/CCT Total # of Minutes Spent Total Time Spent with Patient: Total time spent is greater than 50% in coordination of care (as documented) at patient's floor/unit and/or counseling patient: Coding Level of Care Code 40905 SUB INP/OBS CARE 3/50MIN Diagnoses Narrow complex tachycardia I47.19 Dehydration E86.0 RIANA (acute kidney injury) N17.9 Peripheral vascular disease I73.9
[2025-04-09] MEDS: METOPROLOL SUCC 25MG EXT REL TAB PO SCH (20:08)
[2025-04-10] MEDS: NYSTATIN SUSP 500,000 U/5 ML UDC PO SCH (04:55)
[2025-04-10 06:52] LABS: Hematocrit (blood only) 34.5 % (42.0-52.0); Hemoglobin 10.8 g/dL (14.0-18.0); Immature Granulocytes # (auto) 0.03 K/uL (0.01-0.20); Immature Granulocytes % (auto) 0.8 %; Mean Corpuscular Hemoglobin 23.3 pg (25.0-34.0); Mean Corpuscular Volume 74.5 fL (80.0-100.0); Platelet Count 256 K/uL (130-400); RDW Standard Deviation 49.0 fL (36.4-46.3); Red Blood Count 4.63 M/uL (4.70-6.10); White Blood Count 3.96 K/ul (4.8-10.8)
[2025-04-10 07:16] LABS: Anion Gap 7.0 (3-11); Blood Urea Nitrogen 8.0 mg/dl (6-23); Calcium 7.6 mg/dl (8.6-10.3); Carbon Dioxide 20.0 mmol/L (21-32); Chloride 107.0 mmol/L (98-107); Creatinine Clr Calc Pharmacy 151.3 ml/min; Glucose 129.0 mg/dl (70-99(Fasting)); Magnesium 1.8 mg/dl (1.7-2.4); Potassium 3.8 mmol/L (3.5-5.1); Sodium 134.0 mmol/L (136-145)
[2025-04-10] MEDS: TAMSULOSIN HCL 0.4 MG CAP PO SCH (10:01)
[2025-04-10] MEDS: BUDESONIDE EC 3 MG CAP PO SCH (10:01)
--- NOTE | 2025-04-10 11:26 | Hospitalist Progress Note ---
Date of Service April 10, 2025 Assessment & Plan (1) Atrial fibrillation with rapid ventricular response: (2) Acute hyponatremia: (3) Dehydration: (4) PAD (peripheral artery disease): (5) Diabetes mellitus, type 2: (6) Hypertension: (7) Pericardial effusion: (8) CAD (coronary artery disease): Plan This is a 69 y/o male with DM2, PAD, known pericardial effusion, hx NSVT, CAD, HTN, dyslipidemia, presented to the ED with recurrent falls and weakness. In the ED, pt was found to have new-onset atrial fibrillation with rapid ventricular response with rates in the 180s. He was given a total of Lopressor 15 mg IV, then 10 mg of diltiazem - rate transiently dropped to the 130s before returning to the 170s to 180s. He was started on a diltiazem gtt and referred for admission. He was admitted to medical floor; was transferred to ICU due to low blood pressure while on Cardizem drip. Patient underwent electrical cardioversion for unstable tachycardia on 04/05/2025. Narrow complex tachycardia Patient presents with multiple falls; was found to have atrial tachycardia/MAT with a rate in 180s Was transferred to ICU on 04/05 for low blood pressure; underwent emergent cardioversion but reverted back to narrow complex tachycardia Echocardiogram shows EF of 55 to 60% with moderate concentric LVH. During the hospitalization, cardiology was consulted for comanagement. He was started on metoprolol tartrate initially with improvement in heart rate; it was transition over to metoprolol succinate. His heart rate is well-controlled at this time. Verapamil discontinued #Chronic diarrhea and rectal bleeding Possible ulcerative colitis Underwent flex sigmoiscopy on everal mucosal ulceration with friability and contact bleeding. C. difficile negative. Biopsy pending Started on mesalamine 1600 twice a day. Discussed with patient again on April 10, 2025 regarding budesonide; he wanted to do a trial of budesonide. Patient to follow-up in GI clinic after discharge. Acute urinary retention is status post Ware placementtrial of void attempted without success on April 09, 2025. Plan to do another trial of void at discharge. Started on tamsulosin Hypokalemiarepleted Hyponatremia- Urinary studies reviewed; hypovolemic hyponatremia. improvement note with iv hydration. Abnormal chest CT- Chest CT done on 04/05 shows ground glass lesion at right apex measuring up to 10 mm and 8 mm subsolid nodule in left lower lobe that have increased in size dating back to 2022. I discussed these findings with the patient on 04/07/2025. We discussed that he needs pulmonology referral as outpatient after discharge and repeat CT chest in 3 months. He verbalized understanding #Type 2 Diabetes - Holding oral medications, Ozempic - Insulin sliding scale - Diabetic diet as tolerated - BSG ACHS #PAD - s/p iliac stent - restarted on plavix; discussed with patient outpatient vascular team. aspirin dced. CODE STATUS full DVT prophylaxis on hold for possible rectal bleed Time spent evaluating patient, direct bedside care, chart review, placing orders, interpretation of diagnostic studies, discussion with consultants, patient, and family members, as well as other required patient management activities is 50 minutes Please note the above document was generated using voice recognition software. It may contain grammatical, syntax or spelling errors. Any formal questions or concerns about the content, text or information contained within the body of this dictation should be directly addressed to the provider for clarification Admission and Anticipated Discharge Date Admission Date: April 05, 2025 Subjective Patient seen and examined at bedside. He is comfortable; not in distress. He reports that he continues to have bowel movement overnight. Trial of void was done yesterday without any success. Review of Systems Review of Systems: All systems reviewed & are unremarkable except as noted in Subjective Physical Exam Physical Exam: Constitutional: Alert oriented x 3; not in distress. Respiratory: Bilateral vesicular breath sound Cardiovascular: Irregular, no murmur, no edema Vessels: no JVD or carotid bruit Chest: normal inspection of chest Abdomen: normal bowel sounds, soft, nontender, no hepatosplenomegaly Musculoskeletal: no cyanosis or clubbing, extremities motor strength 5/5 Skin: no rashes, warm and dry normal turgor Neurologic: PERRL, EOMI, accommodation nl, no face palsy, no dysarthria CN's II- XI intact bilaterally and moves all extremities Psychiatric: A+Ox3, euthymic affect Results & Data Results & Data Vital Signs (Past 12 Hours) Vital Signs Temp Pulse Pulse Resp BP Pulse Ox O2 Del Method 04/10/25 07:52 36.7 C 72 20 122/77 97 Room Air 04/10/25 05:00 100 H 04/10/25 03:37 36.6 C 91 H 18 122/55 L 99 Room Air
[2025-04-10] MEDS: POTASSIUM CHLORIDE CRTAB 20 MEQ TABCR PO STA (14:38)
[2025-04-10] MEDS: MAGNESIUM SULFATE / D5W 1 GM/100 ML BAG IV SCH (14:38)
[2025-04-11 06:43] LABS: Hematocrit (blood only) 34.3 % (42.0-52.0); Hemoglobin 10.4 g/dL (14.0-18.0); Immature Granulocytes # (auto) 0.02 K/uL (0.01-0.20); Immature Granulocytes % (auto) 0.7 %; Mean Corpuscular Hemoglobin 22.9 pg (25.0-34.0); Mean Corpuscular Volume 75.6 fL (80.0-100.0); Platelet Count 272 K/uL (130-400); RDW Standard Deviation 50.5 fL (36.4-46.3); Red Blood Count 4.54 M/uL (4.70-6.10); White Blood Count 2.91 K/ul (4.8-10.8)
[2025-04-11 06:59] LABS: Anion Gap 8.0 (3-11); Blood Urea Nitrogen 7.0 mg/dl (6-23); Calcium 7.4 mg/dl (8.6-10.3); Carbon Dioxide 20.0 mmol/L (21-32); Chloride 107.0 mmol/L (98-107); Creatinine Clr Calc Pharmacy 135.9 ml/min; Glucose 124.0 mg/dl (70-99(Fasting)); Potassium 3.7 mmol/L (3.5-5.1); Sodium 135.0 mmol/L (136-145)
--- NOTE | 2025-04-11 11:17 | Hospitalist Progress Note ---
Date of Service April 11, 2025 Assessment & Plan (1) Atrial fibrillation with rapid ventricular response: (2) Acute hyponatremia: (3) Dehydration: (4) PAD (peripheral artery disease): (5) Diabetes mellitus, type 2: (6) Hypertension: (7) Pericardial effusion: (8) CAD (coronary artery disease): Plan This is a 69 y/o male with DM2, PAD, known pericardial effusion, hx NSVT, CAD, HTN, dyslipidemia, presented to the ED with recurrent falls and weakness. In the ED, pt was found to have new-onset atrial fibrillation with rapid ventricular response with rates in the 180s. He was given a total of Lopressor 15 mg IV, then 10 mg of diltiazem - rate transiently dropped to the 130s before returning to the 170s to 180s. He was started on a diltiazem gtt and referred for admission. He was admitted to medical floor; was transferred to ICU due to low blood pressure while on Cardizem drip. Patient underwent electrical cardioversion for unstable tachycardia on 04/05/2025. Narrow complex tachycardia Patient presents with multiple falls; was found to have atrial tachycardia/MAT with a rate in 180s Was transferred to ICU on 04/05 for low blood pressure; underwent emergent cardioversion but reverted back to narrow complex tachycardia Echocardiogram shows EF of 55 to 60% with moderate concentric LVH. During the hospitalization, cardiology was consulted for comanagement. He was started on metoprolol tartrate initially with improvement in heart rate; it was transition over to metoprolol succinate. His heart rate is well-controlled at this time. Verapamil discontinued #Chronic diarrhea and rectal bleeding Possible ulcerative colitis Underwent flex sigmoiscopy on everal mucosal ulceration with friability and contact bleeding. C. difficile negative. Biopsy pending Started on mesalamine 1600 twice a day. Discussed with patient again on April 10, 2025 regarding budesonide; he wanted to do a trial of budesonide. Plan to put him on 9 mg once a day until he follows up with GI clinic. Acute urinary retention is status post Ware placementtrial of void attempted without success on April 09, 2025. Plan to do another trial of void today. Started on tamsulosin Hypokalemiarepleted Hyponatremia- Urinary studies reviewed; hypovolemic hyponatremia. improvement note with iv hydration. Abnormal chest CT- Chest CT done on 04/05 shows ground glass lesion at right apex measuring up to 10 mm and 8 mm subsolid nodule in left lower lobe that have increased in size dating back to 2022. I discussed these findings with the patient on 04/07/2025. We discussed that he needs pulmonology referral as outpatient after discharge and repeat CT chest in 3 months. He verbalized understanding #Type 2 Diabetes - Holding oral medications, Ozempic - Insulin sliding scale - Diabetic diet as tolerated - BSG ACHS #PAD - s/p iliac stent - restarted on plavix; discussed with patient outpatient vascular team. aspirin dced. CODE STATUS full DVT prophylaxis on hold for possible rectal bleed Time spent evaluating patient, direct bedside care, chart review, placing orders, interpretation of diagnostic studies, discussion with consultants, patient, and family members, as well as other required patient management activities is 50 minutes Please note the above document was generated using voice recognition software. It may contain grammatical, syntax or spelling errors. Any formal questions or concerns about the content, text or information contained within the body of this dictation should be directly addressed to the provider for clarification Admission and Anticipated Discharge Date Admission Date: April 05, 2025 Subjective Patient reports that he is feeling better. Frequency of diarrhea seems to have improved. Heart rate stable Review of Systems Review of Systems: All systems reviewed & are unremarkable except as noted in Subjective Physical Exam Physical Exam: Constitutional: Alert oriented x 3; not in distress. Respiratory: Bilateral vesicular breath sound Cardiovascular: Irregular, no murmur, no edema Vessels: no JVD or carotid bruit Chest: normal inspection of chest Abdomen: normal bowel sounds, soft, nontender, no hepatosplenomegaly Musculoskeletal: no cyanosis or clubbing, extremities motor strength 5/5 Skin: no rashes, warm and dry normal turgor Neurologic: PERRL, EOMI, accommodation nl, no face palsy, no dysarthria CN's II- XI intact bilaterally and moves all extremities Psychiatric: A+Ox3, euthymic affect Results & Data Results & Data Vital Signs (Past 12 Hours) Vital Signs Temp Pulse Pulse Resp BP BP Pulse Ox 04/11/25 07:36 36.7 C 68 19 114/63 97 04/11/25 04:59 90 04/11/25 03:55 36.4 C L 98 H 17 124/66 96 04/11/25 00:03 36.5 C 88 17 108/66 96 O2 Del Method 04/11/25 07:36 Room Air 04/11/25 04:59 04/11/25 03:55 Room Air 04/11/25 00:03 Room Air
[2025-04-11] MEDS: POTASSIUM CHLORIDE CRTAB 20 MEQ TABCR PO STA (12:41)
[2025-04-11] MEDS: MAGNESIUM SULFATE / D5W 1 GM/100 ML BAG IV SCH (12:41)
[2025-04-11 12:55] LABS: Magnesium 2.0 mg/dl (1.7-2.4)
[2025-04-12 07:03] LABS: Hematocrit (blood only) 34.5 % (42.0-52.0); Hemoglobin 10.3 g/dL (14.0-18.0); Mean Corpuscular Hemoglobin 22.8 pg (25.0-34.0); Mean Corpuscular Volume 76.3 fL (80.0-100.0); Platelet Count 311 K/uL (130-400); RDW Standard Deviation 50.8 fL (36.4-46.3); Red Blood Count 4.52 M/uL (4.70-6.10); White Blood Count 4.43 K/ul (4.8-10.8)
[2025-04-12 07:30] LABS: Anion Gap 6.0 (3-11); Blood Urea Nitrogen 8.0 mg/dl (6-23); Calcium 7.8 mg/dl (8.6-10.3); Carbon Dioxide 23.0 mmol/L (21-32); Chloride 106.0 mmol/L (98-107); Creatinine Clr Calc Pharmacy 123.4 ml/min; Glucose 114.0 mg/dl (70-99(Fasting)); Potassium 3.7 mmol/L (3.5-5.1); Sodium 135.0 mmol/L (136-145)
[2025-04-12 08:00] LABS: Immature Granulocytes # (auto) 0.03 K/uL (0.01-0.20); Immature Granulocytes % (auto) 0.7 %; Ovalocytes 1+; Polychromasia 1+; Toxic Granulation 2+
--- NOTE | 2025-04-12 09:56 | Gastroenterology Progress Note ---
Date of Service April 12, 2025 Assessment & Plan (1) Colitis: Plan: -Await pathology results -Continue oral Mesalamine -Can add Rowasa topical therapy nightly -Can consider steroids vs other treatment options pending biopsy results Admission and Anticipated Discharge Date Admission Date: April 05, 2025 Supervising Physician Co-Signing Physician Notes I saw and examined this patient with our nurse practitioner and agree with her assessment and plan. New onset colitis clinically improving on mesalamine and budesonide. Awaiting pathology from sigmoidoscopy last week to confirm whether or not this represents idiopathic ulcerative colitis. Subjective Patient with diarrhea and recent colonoscopy findings of colitis. Pathology pending from procedure. C diff negative x 2. GI asked to re-evaluate due to diarrhea. Patient notes approximately 6 episodes of loose stool daily. He is on Mesalamine po therapy at present. Review of Systems Gastrointestinal: + diarrhea/loose stools Physical Exam Gastrointestinal (Abdomen): normal bowel sounds, soft, nontender, no hepatosplenomegaly Results & Data Results & Data Vital Signs (Past 12 Hours) Vital Signs Temp Pulse Pulse Pulse Resp BP BP 04/12/25 07:41 36.6 C 94 H 18 109/64 04/12/25 07:00 88 04/12/25 03:54 36.4 C L 86 18 126/77 04/12/25 00:03 36.8 C 84 17 109/68 04/12/25 00:00 80 Pulse Ox O2 Del Method 04/12/25 07:41 99 Room Air 04/12/25 07:00 04/12/25 03:54 99 Room Air 04/12/25 00:03 98 Room Air 04/12/25 00:00 PG Care Time/CCT Total # of Minutes Spent Total Time Spent with Patient: Total time spent is greater than 50% in coordination of care (as documented) at patient's floor/unit and/or counseling patient: Coding Level of Care Code 69748 SUB INP/OBS CARE 3/50MIN Diagnoses Colitis K52.9
--- NOTE | 2025-04-12 12:07 | Hospitalist Progress Note ---
Date of Service April 12, 2025 Assessment & Plan (1) Atrial fibrillation with rapid ventricular response: (2) Acute hyponatremia: (3) Dehydration: (4) PAD (peripheral artery disease): (5) Diabetes mellitus, type 2: (6) Hypertension: (7) Pericardial effusion: (8) CAD (coronary artery disease): Plan This is a 69 y/o male with DM2, PAD, known pericardial effusion, hx NSVT, CAD, HTN, dyslipidemia, presented to the ED with recurrent falls and weakness. In the ED, pt was found to have new-onset atrial fibrillation with rapid ventricular response with rates in the 180s. He was given a total of Lopressor 15 mg IV, then 10 mg of diltiazem - rate transiently dropped to the 130s before returning to the 170s to 180s. He was started on a diltiazem gtt and referred for admission. He was admitted to medical floor; was transferred to ICU due to low blood pressure while on Cardizem drip. Patient underwent electrical cardioversion for unstable tachycardia on 04/05/2025. Narrow complex tachycardia Patient presents with multiple falls; was found to have atrial tachycardia/MAT with a rate in 180s Was transferred to ICU on 04/05 for low blood pressure; underwent emergent cardioversion but reverted back to narrow complex tachycardia Echocardiogram shows EF of 55 to 60% with moderate concentric LVH. During the hospitalization, cardiology was consulted for comanagement. He was started on metoprolol tartrate initially with improvement in heart rate; it was transition over to metoprolol succinate. His heart rate is well-controlled at this time. Verapamil discontinued #Chronic diarrhea and rectal bleeding Possible ulcerative colitis Underwent flex sigmoidoscopy on everal mucosal ulceration with friability and contact bleeding. C. difficile negative. Biopsy pending Started on mesalamine 1600 twice a day. Discussed with patient again on April 10, 2025 regarding budesonide; he wanted to do a trial of budesonide. Started on budesonide. He continues to have nocturnal diarrhea. Ask GI to reevaluate again on 04/12. Rowasa added as per GI. Acute urinary retention is status post Ware placementtrial of void attempted without success on April 09, 2025. Trial of void successful on April 11, 2025. Continue on tamsulosin at discharge Hypokalemiarepleted Hyponatremia- Urinary studies reviewed; hypovolemic hyponatremia. improvement note with iv hydration. Abnormal chest CT- Chest CT done on 04/05 shows ground glass lesion at right apex measuring up to 10 mm and 8 mm subsolid nodule in left lower lobe that have increased in size dating back to 2022. I discussed these findings with the patient on 04/07/2025. We discussed that he needs pulmonology referral as outpa tient after discharge and repeat CT chest in 3 months. He verbalized understanding #Type 2 Diabetes - Holding oral medications, Ozempic - Insulin sliding scale - Diabetic diet as tolerated - BSG ACHS #PAD - s/p iliac stent - restarted on plavix; discussed with patient outpatient vascular team. aspirin dced. CODE STATUS full DVT prophylaxis on hold for possible rectal bleed Time spent evaluating patient, direct bedside care, chart review, placing orders, interpretation of diagnostic studies, discussion with consultants, naa ent, and family members, as well as other required patient management activities is 50 minutes Please note the above document was generated using voice recognition software. It may contain grammatical, syntax or spelling errors. Any formal questions or concerns about the content, text or information contained within the body of this dictation should be directly addressed to the provider for clarification Admission and Anticipated Discharge Date Admission Date: April 05, 2025 Subjective Patient seen at bedside. He reports that he had 6 bouts of diarrhea; 3 overnight. Some blood was seen. He is able to void by himself. No abdominal pain or discomfort Review of Systems Review of Systems: All systems reviewed & are unremarkable except as noted in Subjective Physical Exam Physical Exam: Constitutional: Alert oriented x 3; not in distress. Respiratory: Bilateral vesicular breath sound Cardiovascular: Irregular, no murmur, no edema Vessels: no JVD or carotid bruit Chest: normal inspection of chest Abdomen: normal bowel sounds, soft, nontender, no hepatosplenomegaly Musculoskeletal: no cyanosis or clubbing, extremities motor strength 5/5 Skin: no rashes, warm and dry normal turgor Neurologic: PERRL, EOMI, accommodation nl, no face palsy, no dysarthria CN's II- XI intact bilaterally and moves all extremities Psychiatric: A+Ox3, euthymic affect Results & Data Results & Data Vital Signs (Past 12 Hours) Vital Signs Temp Pulse Pulse Pulse Resp BP BP 04/12/25 10:46 36.6 C 119 H 16 109/69 04/12/25 07:41 36.6 C 94 H 18 109/64 04/12/25 07:00 88 04/12/25 03:54 36.4 C L 86 18 126/77 Pulse Ox O2 Del Method 04/12/25 10:46 97 Room Air 04/12/25 07:41 99 Room Air 04/12/25 07:00 04/12/25 03:54 99 Room Air
[2025-04-12] MEDS: LACTATED RINGER'S 500 ML IV ONE (12:55)
[2025-04-12] MEDS: LACTATED RINGER'S 1,000 ML IV SCH (18:35)
[2025-04-13] MEDS: SODIUM CHLORIDE 0.9% 250 ML IV ONE (00:58)
[2025-04-13] MEDS: SODIUM CHLORIDE 0.9% 1,000 ML IV SCH ×2 (01:22→10:26)
[2025-04-13 06:14] LABS: Hematocrit (blood only) 33.0 % (42.0-52.0); Hemoglobin 10.3 g/dL (14.0-18.0); Immature Granulocytes # (auto) 0.02 K/uL (0.01-0.20); Immature Granulocytes % (auto) 0.6 %; Mean Corpuscular Hemoglobin 23.3 pg (25.0-34.0); Mean Corpuscular Volume 74.7 fL (80.0-100.0); Platelet Count 338 K/uL (130-400); RDW Standard Deviation 49.7 fL (36.4-46.3); Red Blood Count 4.42 M/uL (4.70-6.10); White Blood Count 3.50 K/ul (4.8-10.8)
[2025-04-13 06:30] LABS: Anion Gap 7.0 (3-11); Blood Urea Nitrogen 6.0 mg/dl (6-23); Calcium 7.6 mg/dl (8.6-10.3); Carbon Dioxide 19.0 mmol/L (21-32); Chloride 108.0 mmol/L (98-107); Creatinine Clr Calc Pharmacy 153.4 ml/min; Glucose 110.0 mg/dl (70-99(Fasting)); Potassium 3.6 mmol/L (3.5-5.1); Sodium 134.0 mmol/L (136-145)
--- NOTE | 2025-04-13 10:15 | Gastroenterology Progress Note ---
Date of Service April 13, 2025 Assessment & Plan (1) Ulcerative colitis: Plan: -Continue oral & topical 5ASA therapy -Budesonide 9 mg po daily x 8 weeks -Will need outpatient GI appointment to discuss UC management, plan a full colonoscopy, and reassess response to therapy. Our office will reach out to arrange the scope & appointment. Admission and Anticipated Discharge Date Admission Date: April 05, 2025 Supervising Physician Co-Signing Physician Notes I saw and examined this patient with our nurse practitioner and agree with her assessment and plan. Pathology supports diagnosis of idiopathic ulcerative colitis. Persistent symptoms recommend oral prednisone 40 mg daily along with the mesalamine. Can stop the budesonide. He can follow-up with us as an outpatient once symptoms continue to improve. Subjective Patient s a 69 yo male with diarrhea and colitis. His pathology from his flex sig returned consistent with Ulcerative Colitis. He notes volume of stools is decreasing but his frequency remains around 6 times per day. Review of Systems Constitutional: no fever and no chills Respiratory: no cough and no dyspnea Cardiovascular: no chest pain Gastrointestinal: + diarrhea/loose stools Physical Exam Gastrointestinal (Abdomen): normal bowel sounds, soft, nontender, no hepatosplenomegaly Results & Data Results & Data Vital Signs (Past 12 Hours) Vital Signs Temp Pulse Pulse Resp BP Pulse Ox O2 Del Method 04/13/25 08:12 123 H 107/58 L 04/13/25 07:44 95 H 04/13/25 07:18 36.7 C 81 18 96/56 L 98 Room Air 04/13/25 02:57 37.1 C 84 18 109/69 99 Room Air 04/13/25 00:30 150 H 20 92/58 L 04/12/25 23:07 37.2 C 90 18 100/60 97 Room Air Laboratory Results Laboratory Results - last 48 hr 04/11/25 04/12/25 04/12/25 20:39 05:55 07:24 WBC 4.43 L RBC 4.52 L Hgb 10.3 L Hct 34.5 L MCV 76.3 L MCH 22.8 L MCHC 29.9 L RDW Std Deviation 50.8 H RDW Coeff of Tavo 18.7 H Plt Count 311 MPV 9.8 Immature Gran % (Auto) 0.7 Neut % (Auto) 67.5 Lymph % (Auto) 10.6 [place] % (Auto) 15.8 Eos % (Auto) 4.7 Baso % (Auto) 0.7 Neut # (Auto) 2.99 Lymph # (Auto) 0.47 L [place] # (Auto) 0.70 H Eos # (Auto) 0.21 Baso # (Auto) 0.03 Immature Gran # (Auto) 0.03 Toxic Granulation 2+ Polychromasia 1+ Ovalocytes 1+ Echinocytes 1+ Sodium 135 L Potassium 3.7 Chloride 106 Carbon Dioxide 23 Anion Gap 6 BUN 8 Creatinine 0.65 Est Cr Clr Drug Dosing 123.4 eGFR 102.64 BUN/Creatinine Ratio 12.3 Glucose 114 H POC Glucose 134 H 131 H Calcium 7.8 L 04/12/25 04/12/25 04/12/25 11:11 16:14 20:25 WBC RBC Hgb Hct MCV MCH MCHC RDW Std Deviation RDW Coeff of Tavo Plt Count MPV Immature Gran % (Auto) Neut % (Auto) Lymph % (Auto) [place] % (Auto) Eos % (Auto) Baso % (Auto) Neut # (Auto) Lymph # (Auto) [place] # (Auto) Eos # (Auto) Baso # (Auto) Immature Gran # (Auto) Toxic Granulation Polychromasia Ovalocytes Echinocytes Sodium Potassium Chloride Carbon Dioxide Anion Gap BUN Creatinine Est Cr Clr Drug Dosing eGFR BUN/Creatinine Ratio Glucose POC Glucose 146 H 137 H 150 H Calcium 04/13/25 04/13/25 04/13/25 05:30 07:23 11:18 WBC 3.50 L RBC 4.42 L Hgb 10.3 L Hct 33.0 L MCV 74.7 L MCH 23.3 L MCHC 31.2 L RDW Std Deviation 49.7 H RDW Coeff of Tavo 18.3 H Plt Count 338 MPV 9.8 Immature Gran % (Auto) 0.6 Neut % (Auto) 69.9 Lymph % (Auto) 16.6 [place] % (Auto) 8.3 Eos % (Auto) 3.7 Baso % (Auto) 0.9 Neut # (Auto) 2.45 Lymph # (Auto) 0.58 L [place] # (Auto) 0.29 Eos # (Auto) 0.13 Baso # (Auto) 0.03 Immature Gran # (Auto) 0.02 Toxic Granulation Polychromasia Ovalocytes Echinocytes Sodium 134 L Potassium 3.6 Chloride 108 H Carbon Dioxide 19 L Anion Gap 7 BUN 6 Creatinine 0.52 L Est Cr Clr Drug Dosing 153.4 eGFR 109.79 BUN/Creatinine Ratio 11.5 Glucose 110 H POC Glucose 119 H 139 H Calcium 7.6 L PG Care Time/CCT Total # of Minutes Spent Total Time Spent with Patient: Total time spent is greater than 50% in coordination of care (as documented) at patient's floor/unit and/or counseling patient: Coding Level of Care Code 34683 SUB INP/OBS CARE 3/50MIN Diagnoses Ulcerative colitis K51.90
--- NOTE | 2025-04-13 15:45 | Hospitalist Progress Note ---
Date of Service April 13, 2025 Assessment & Plan (1) Atrial fibrillation with rapid ventricular response: (2) Acute hyponatremia: (3) Dehydration: (4) PAD (peripheral artery disease): (5) Diabetes mellitus, type 2: (6) Hypertension: (7) Pericardial effusion: (8) CAD (coronary artery disease): Plan This is a 69 y/o male with DM2, PAD, known pericardial effusion, hx NSVT, CAD, HTN, dyslipidemia, presented to the ED with recurrent falls and weakness. He was noted to have increased HR (in 180s) in the ED. He was given a total of Lopressor 15 mg IV, then 10 mg of diltiazem - rate transiently dropped to the 130s before returning to the 170s to 180s. He was started on a diltiazem gtt and referred for admission. He was admitted to medical floor; was transferred to ICU due to low blood pressure while on Cardizem drip. Patient underwent electrical cardioversion for unstable tachycardia on 04/05/2025. Narrow complex tachycardia Patient presents with multiple falls; was found to have atrial tachycardia/MAT with a rate in 180s Was transferred to ICU on 04/05 for low blood pressure; underwent emergent cardioversion but reverted back to narrow complex tachycardia Echocardiogram shows EF of 55 to 60% with moderate concentric LVH. During the hospitalization, cardiology was consulted for comanagement. He was started on metoprolol tartrate initially with improvement in heart rate; it was transitioned over to metoprolol succinate. His heart rate is better-controlled at this time. Verapamil discontinued Chronic diarrhea and rectal bleeding Ulcerative colitis Underwent flex sigmoidoscopy on everal mucosal ulceration with friability and contact bleeding. C. difficile negative. Biopsy s/o ulcerative colitis Stool PCR and C diff are neg. GI on board: Mesalamine 1600 mg twice daily, Rowasa daily, budesonide for 8 weeks, OP GI eval for full colonoscopy and assessing response to therapy. Patient reports improving urgency and volume of stool, frequency is about the same per patient. Patient denies abdominal pain. Continue to monitor, monitor and replete electrolytes. Acute urinary retention, s/p Ware placementtrial of void attempted without success on April 09, 2025. Trial of void successful on April 11, 2025. Continue on tamsulosin at discharge Hypokalemiarepleted. Monitor. Hyponatremia- Urinary studies reviewed; hypovolemic hyponatremia. improvement note with iv hydration. Abnormal chest CT- Chest CT done on 04/05 shows ground glass lesion at right apex measuring up to 10 mm and 8 mm subsolid nodule in left lower lobe that have increased in size dating back to 2022. I discussed these findings with the patient on 04/07/2025. We discussed that he needs pulmonology referral as outpatient after discharge and repeat CT chest in 3 months. He verbalized understanding #Type 2 Diabetes - Holding oral medications, Ozempic - Insulin sliding scale - Diabetic diet as tolerated - BSG ACHS #PAD - s/p iliac stent Per prior attending- restarted on plavix; discussed with patient outpatient vascular team. aspirin dced. CODE STATUS full chemo DVT prophylaxis on hold for possible rectal bleed Please note the above document was generated using voice recognition software. It may contain grammatical, syntax or spelling errors. Any formal questions or concerns about the content, text or information contained within the body of this dictation should be directly addressed to the provider for clarification Admission and Anticipated Discharge Date Admission Date: April 05, 2025 Subjective Patient seen And examined at bedside. Patient reports volume and urgency of his stool has improved but frequency is about the same around 6 times a day. Patient denies abdominal pain. Overnight patient was hypotensive and dizzy, received IV fluids. Patient has poor appetite, will continue with IV fluid for today. Physical Exam Physical Exam: Constitutional: Alert oriented x 3; not in distress. Respiratory: Bilateral vesicular breath sound Cardiovascular: Irregular, no murmur, no edema Vessels: no JVD or carotid bruit Chest: normal inspection of chest Abdomen: normal bowel sounds, soft, nontender, no hepatosplenomegaly Musculoskeletal: no cyanosis or clubbing, extremities motor strength 5/5 Skin: no rashes, warm and dry normal turgor Neurologic: PERRL, EOMI, accommodation nl, no face palsy, no dysarthria CN's II- XI intact bilaterally and moves all extremities Psychiatric: A+Ox3, euthymic affect Results & Data Results & Data Vital Signs (Past 12 Hours) Vital Signs Temp Pulse Pulse Resp BP BP Pulse Ox 04/13/25 14:48 113 H 04/13/25 11:11 36.3 C L 76 16 108/73 100 04/13/25 08:12 123 H 107/58 L 04/13/25 07:44 95 H 04/13/25 07:18 36.7 C 81 18 96/56 L 98 O2 Del Method 04/13/25 14:48 04/13/25 11:11 Room Air 04/13/25 08:12 04/13/25 07:44 04/13/25 07:18 Room Air
[2025-04-13] MEDS: MAGNESIUM SULFATE / D5W 1 GM/100 ML BAG IV ONE (16:07)
[2025-04-13] MEDS: POTASSIUM CHLORIDE CRTAB 20 MEQ TABCR PO STA (16:07)
[2025-04-13] MEDS: MESALAMINE 4 GM/60 ML ENEMA PR SCH (20:56)
[2025-04-14 06:33] LABS: Hematocrit (blood only) 30.7 % (42.0-52.0); Hemoglobin 9.7 g/dL (14.0-18.0); Mean Corpuscular Hemoglobin 23.4 pg (25.0-34.0); Mean Corpuscular Volume 74.0 fL (80.0-100.0); Platelet Count 309 K/uL (130-400); RDW Standard Deviation 49.1 fL (36.4-46.3); Red Blood Count 4.15 M/uL (4.70-6.10); White Blood Count 3.18 K/ul (4.8-10.8)
[2025-04-14 07:06] LABS: Anion Gap 7.0 (3-11); Blood Urea Nitrogen 7.0 mg/dl (6-23); Calcium 7.3 mg/dl (8.6-10.3); Carbon Dioxide 19.0 mmol/L (21-32); Chloride 108.0 mmol/L (98-107); Creatinine Clr Calc Pharmacy 163.5 ml/min; Glucose 113.0 mg/dl (70-99(Fasting)); Magnesium 1.7 mg/dl (1.7-2.4); Potassium 3.3 mmol/L (3.5-5.1); Sodium 134.0 mmol/L (136-145)
[2025-04-14] MEDS: predniSONE 20 MG TAB PO SCH (08:00)
[2025-04-14] MEDS: MAGNESIUM SULFATE / D5W 1 GM/100 ML BAG IV ONE (09:36)
[2025-04-14] MEDS: POTASSIUM CHLORIDE CRTAB 20 MEQ TABCR PO STA (09:37)
--- NOTE | 2025-04-14 09:57 | Gastroenterology Progress Note ---
Date of Service April 14, 2025 Assessment & Plan (1) Ulcerative colitis: Plan: -Continue Prednisone at present. -Continue oral & topical 5ASA. -Our office to arrange outpatient colonoscopy & office visit. Admission and Anticipated Discharge Date Admission Date: April 05, 2025 Supervising Physician Co-Signing Physician Notes I saw and examined this patient with our nurse practitioner and agree with her assessment and plan. Clinically improving slowly has been switched to prednisone 40 mg daily instead of budesonide. Continue mesalamine. Will follow-up with us as an outpatient. Subjective Patient is a 69 yo male with UC. He is transitioning to Prednisone instead of Budesonide. Per RN, he has been having tachycardia. He is awaiting arrangements of outpatient GI OV. Bowel frequency remains around 6 daily, but lower volume of stool. Review of Systems Gastrointestinal: + diarrhea/loose stools Physical Exam Constitutional: well developed Psychiatric: Orientation: alert and oriented x 3 Results & Data Results & Data Vital Signs (Past 12 Hours) Vital Signs Temp Pulse Pulse Resp BP Pulse Ox O2 Del Method 04/14/25 07:35 36.8 C 89 18 114/58 L 94 Room Air 04/14/25 03:29 36.7 C 103 H 18 116/65 97 Room Air 04/13/25 23:30 Room Air 04/13/25 23:26 37.0 C 89 20 105/67 99 Room Air 04/13/25 22:11 107 H PG Care Time/CCT Total # of Minutes Spent Total Time Spent with Patient: Total time spent is greater than 50% in coordination of care (as documented) at patient's floor/unit and/or counseling patient: Coding Level of Care Code 17947 SUB INP/OBS CARE 2/35MIN Diagnoses Ulcerative colitis K51.90
--- NOTE | 2025-04-14 15:06 | Hospitalist Progress Note ---
Date of Service April 14, 2025 Assessment & Plan (1) Atrial fibrillation with rapid ventricular response: (2) Acute hyponatremia: (3) Dehydration: (4) PAD (peripheral artery disease): (5) Diabetes mellitus, type 2: (6) Hypertension: (7) Pericardial effusion: (8) CAD (coronary artery disease): Plan This is a 69 y/o male with DM2, PAD, known pericardial effusion, hx NSVT, CAD, HTN, dyslipidemia, presented to the ED with recurrent falls and weakness. He was noted to have increased HR (in 180s) in the ED. He was given a total of Lopressor 15 mg IV, then 10 mg of diltiazem - rate transiently dropped to the 130s before returning to the 170s to 180s. He was started on a diltiazem gtt and referred for admission. He was admitted to medical floor; was transferred to ICU due to low blood pressure while on Cardizem drip. Patient underwent electrical cardioversion for unstable tachycardia on 04/05/2025. Narrow complex tachycardia Patient presents with multiple falls; was found to have atrial tachycardia/MAT with a rate in 180s Was transferred to ICU on 04/05 for low blood pressure; underwent emergent cardioversion but reverted back to narrow complex tachycardia Echocardiogram shows EF of 55 to 60% with moderate concentric LVH. During the hospitalization, cardiology was consulted for comanagement. He was started on metoprolol tartrate initially with improvement in heart rate; it was transitioned over to metoprolol succinate. His heart rate is better-controlled at this time. Verapamil discontinued Chronic diarrhea and rectal bleeding Ulcerative colitis Underwent flex sigmoidoscopy on everal mucosal ulceration with friability and contact bleeding. C. difficile negative. Biopsy s/o ulcerative colitis Stool PCR and C diff are neg. GI on board: Mesalamine 1600 mg twice daily, Rowasa daily, Prednisone, OP GI eval for full colonoscopy and assessing response to therapy and tapering of steroid. Patient reports improving urgency and volume of stool, overnight frequency is slightly improved. Patient denies abdominal pain. Continue to monitor, monitor and replete electrolytes. Acute urinary retention, s/p Ware placementtrial of void attempted without success on April 09, 2025. Trial of void successful on April 11, 2025. Continue on tamsulosin at discharge Hypokalemiarepleted. Monitor. Hyponatremia- Urinary studies reviewed; hypovolemic hyponatremia. improvement note with iv hydration. expect to improve w/ improving appetite. Abnormal chest CT- Chest CT done on 04/05 shows ground glass lesion at right apex measuring up to 10 mm and 8 mm subsolid nodule in left lower lobe that have increased in size dating back to 2022. I discussed these findings with the patient on 04/07/2025. We discussed that he needs pulmonology referral as outpatient after discharge and repeat CT chest in 3 months. He verbalized understanding #Type 2 Diabetes - Holding oral medications, Ozempic - Insulin sliding scale - Diabetic diet as tolerated - BSG ACHS #PAD - s/p iliac stent Per prior attending- restarted on plavix; discussed with patient outpatient vascular team. aspirin dced. CODE STATUS full chemo DVT prophylaxis on hold for possible rectal bleed Please note the above document was generated using voice recognition software. It may contain grammatical, syntax or spelling errors. Any formal questions or concerns about the content, text or information contained within the body of this dictation should be directly addressed to the provider for clarification Admission and Anticipated Discharge Date Admission Date: April 05, 2025 Subjective Patient seen And examined at bedside. Patient reports volume and urgency of his stool has improved and frequency overnight has slightly improved. Patient denies abdominal pain. Overnight patient was tachycardic, but now pt is eating better and HR has been more stable. Physical Exam Physical Exam: Constitutional: Alert oriented x 3; not in distress. Respiratory: Bilateral vesicular breath sound Cardiovascular: Irregular, no murmur, no edema Vessels: no JVD or carotid bruit Chest: normal inspection of chest Abdomen: normal bowel sounds, soft, nontender, no hepatosplenomegaly Musculoskeletal: no cyanosis or clubbing, extremities motor strength 5/5 Skin: no rashes, warm and dry normal turgor Neurologic: PERRL, EOMI, accommodation nl, no face palsy, no dysarthria CN's II- XI intact bilaterally and moves all extremities Psychiatric: A+Ox3, euthymic affect Results & Data Results & Data Vital Signs (Past 12 Hours) Vital Signs Temp Pulse Pulse Resp BP Pulse Ox O2 Del Method 04/14/25 10:55 37.1 C 84 18 112/66 95 Room Air 04/14/25 08:00 99 H 04/14/25 07:35 36.8 C 89 18 114/58 L 94 Room Air 04/14/25 03:29 36.7 C 103 H 18 116/65 97 Room Air
[2025-04-15 07:33] LABS: Hematocrit (blood only) 31.9 % (42.0-52.0); Hemoglobin 9.9 g/dL (14.0-18.0); Mean Corpuscular Hemoglobin 22.9 pg (25.0-34.0); Mean Corpuscular Volume 73.8 fL (80.0-100.0); Platelet Count 360 K/uL (130-400); RDW Standard Deviation 50.4 fL (36.4-46.3); Red Blood Count 4.32 M/uL (4.70-6.10); White Blood Count 3.19 K/ul (4.8-10.8)
[2025-04-15 07:50] LABS: Anion Gap 7.0 (3-11); Blood Urea Nitrogen 10.0 mg/dl (6-23); Calcium 7.7 mg/dl (8.6-10.3); Carbon Dioxide 22.0 mmol/L (21-32); Chloride 108.0 mmol/L (98-107); Creatinine Clr Calc Pharmacy 149.0 ml/min; Glucose 103.0 mg/dl (70-99(Fasting)); Magnesium 1.9 mg/dl (1.7-2.4); Potassium 3.2 mmol/L (3.5-5.1); Sodium 137.0 mmol/L (136-145)
[2025-04-15] MEDS ORDERED: Nursing to Pharmacy Communication SCH (12:00)
[2025-04-15] MEDS: POTASSIUM CHLORIDE CRTAB 20 MEQ TABCR PO STA ×2 (12:11→12:20)
--- NOTE | 2025-04-15 13:47 | Hospitalist Progress Note ---
Date of Service April 15, 2025 Assessment & Plan (1) Atrial fibrillation with rapid ventricular response: (2) Acute hyponatremia: (3) Dehydration: (4) PAD (peripheral artery disease): (5) Diabetes mellitus, type 2: (6) Hypertension: (7) Pericardial effusion: (8) CAD (coronary artery disease): Plan This is a 69 y/o male with DM2, PAD, known pericardial effusion, hx NSVT, CAD, HTN, dyslipidemia, presented to the ED with recurrent falls and weakness. He was noted to have increased HR (in 180s) in the ED. He was given a total of Lopressor 15 mg IV, then 10 mg of diltiazem - rate transiently dropped to the 130s before returning to the 170s to 180s. He was started on a diltiazem gtt and referred for admission. He was admitted to medical floor; was transferred to ICU due to low blood pressure while on Cardizem drip. Patient underwent electrical cardioversion for unstable tachycardia on 04/05/2025. Narrow complex tachycardia Patient presents with multiple falls; was found to have atrial tachycardia/MAT with a rate in 180s Was transferred to ICU on 04/05 for low blood pressure; underwent emergent cardioversion but reverted back to narrow complex tachycardia Echocardiogram shows EF of 55 to 60% with moderate concentric LVH. During the hospitalization, cardiology was consulted for comanagement. He was started on metoprolol tartrate initially with improvement in heart rate; it was transitioned over to metoprolol succinate. His heart rate is better-controlled at this time. Verapamil discontinued Chronic diarrhea and rectal bleeding Ulcerative colitis Underwent flex sigmoidoscopy on everal mucosal ulceration with friability and contact bleeding. C. difficile negative. Biopsy s/o ulcerative colitis Stool PCR and C diff are neg. GI on board: Mesalamine 1600 mg twice daily, Rowasa daily, Prednisone, OP GI eval for full colonoscopy and assessing response to therapy and tapering of steroid. Patient reports improving urgency and volume of stool, overnight frequency is slightly improved. Patient denies abdominal pain. Continue to monitor, monitor and replete electrolytes. Acute urinary retention, s/p Ware placementtrial of void attempted without success on April 09, 2025. Trial of void successful on April 11, 2025. Continue on tamsulosin at discharge Hypokalemiarepleted. Monitor. Hyponatremia- Urinary studies reviewed; hypovolemic hyponatremia. improvement note with iv hydration. expect to improve w/ improving appetite. Abnormal chest CT- Chest CT done on 04/05 shows ground glass lesion at right apex measuring up to 10 mm and 8 mm subsolid nodule in left lower lobe that have increased in size dating back to 2022. I discussed these findings with the patient on 04/07/2025. We discussed that he needs pulmonology referral as outpatient after discharge and repeat CT chest in 3 months. He verbalized understanding #Type 2 Diabetes - Holding oral medications, Ozempic - Insulin sliding scale - Diabetic diet as tolerated - BSG ACHS #PAD - s/p iliac stent Per prior attending- restarted on plavix; discussed with patient outpatient vascular team. aspirin dced. CODE STATUS full chemo DVT prophylaxis on hold for possible rectal bleed Please note the above document was generated using voice recognition software. It may contain grammatical, syntax or spelling errors. Any formal questions or concerns about the content, text or information contained within the body of this dictation should be directly addressed to the provider for clarification Admission and Anticipated Discharge Date Admission Date: April 05, 2025 Subjective Patient seen And examined at bedside. Patient reports volume and urgency of his stool has improved and frequency overnight has slightly improved/about the same. Patient denies abdominal pain. Pt is ambulating around and eating better, feels overall getting better. He states he would like to see how he does today and see if he can handle himself at home veronika. Physical Exam Physical Exam: Constitutional: Alert oriented x 3; not in distress. Respiratory: Bilateral vesicular breath sound Cardiovascular: Irregular, no murmur, no edema Vessels: no JVD or carotid bruit Chest: normal inspection of chest Abdomen: normal bowel sounds, soft, nontender, no hepatosplenomegaly Musculoskeletal: no cyanosis or clubbing, extremities motor strength 5/5 Skin: no rashes, warm and dry normal turgor Neurologic: PERRL, EOMI, accommodation nl, no face palsy, no dysarthria CN's II- XI intact bilaterally and moves all extremities Psychiatric: A+Ox3, euthymic affect Results & Data Results & Data Vital Signs (Past 12 Hours) Vital Signs Temp Pulse Pulse Resp BP BP Pulse Ox 04/15/25 10:56 36.9 C 94 H 18 120/67 98 04/15/25 08:00 89 04/15/25 07:00 36.5 C 101 H 18 111/71 96 04/15/25 03:43 36.8 C 68 18 110/65 96 O2 Del Method 04/15/25 10:56 Room Air 04/15/25 08:00 04/15/25 07:00 Room Air 04/15/25 03:43 Room Air
[2025-04-16 07:11] LABS: Anion Gap 5.0 (3-11); Blood Urea Nitrogen 12.0 mg/dl (6-23); Calcium 7.7 mg/dl (8.6-10.3); Carbon Dioxide 23.0 mmol/L (21-32); Chloride 110.0 mmol/L (98-107); Creatinine Clr Calc Pharmacy 120.8 ml/min; Glucose 102.0 mg/dl (70-99(Fasting)); Potassium 3.8 mmol/L (3.5-5.1); Sodium 138.0 mmol/L (136-145)
[2025-04-16 08:20] VITALS: TEMP 97.7
[2025-04-16 11:58] VITALS: RESP 21; O2SAT 96
--- NOTE | 2025-04-16 12:02 | Discharge Summary ---
Date of Service April 16, 2025 Admission HPI Per Admitting Provider This is a 69 y/o male with DM2, PAD, known pericardial effusion, hx NSVT, CAD, HTN, dyslipidemia, and other history as outlined below who presented to the ED today with recurrent falls and weakness. Pt reports issues with diarrhea and rectal bleeding for several months. He was seen at urgent care on 03/24 and had labs done, CT which showed pancolitis. He was started on a ten day course of Cipro/Flagyl and ordered stool studies, which were negative. He saw GI on 04/01 who recommended repeat labs and a colonoscopy, which is scheduled for April. Pt reports some decrease in the severity of the rectal bleeding after the antibiotics but continues to have urgent diarrhea, incontinent at times. Ongoing nausea but vomiting/dry heaves seem to have improved after the antibiotics. He has lower abdominal discomfort and bloating but no severe abdominal pain. Appetite is poor and oral intake is limited as any oral intake seems to worsen the diarrhea. Pt notes ongoing dizziness with standing, which he thinks is cont ributing to the frequent falls, but no syncopal episode. He denies chest pain, palpitations, dyspnea. He denies prior history of atrial fibrillation. He denies orthopnea, peripheral edema, fevers, chills, sweats, ROCHA. Admission Exam Per Admitting Provider General: awake, alert, NAD HEENT: no scleral icterus, dry oral mucosa Neck: supple, trachea midline Heart: irregularly irregular, tachycardic Lungs: CTA bilaterally on the anterior Abdomen: soft, NT, +BS Extremities: no significant pedal edema, radial pulses 2+ and equal Skin: dry, no rashes or jaundice Neurologic: Ox3, no confusion or dysarthria Principal Diagnosis Narrow complex tachycardia Chronic diarrhea and rectal bleeding Ulcerative colitis Acute urinary retention, resolved Abnormal chest CT Discharge Exam Constitutional: Alert oriented x 3; not in distress. Respiratory: Bilateral vesicular breath sound Cardiovascular: Irregular, no murmur, no edema Vessels: no JVD or carotid bruit Chest: normal inspection of chest Abdomen: normal bowel sounds, soft, nontender, no hepatosplenomegaly Musculoskeletal: no cyanosis or clubbing, extremities motor strength 5/5 Skin: no rashes, warm and dry normal turgor Neurologic: PERRL, EOMI, accommodation nl, no face palsy, no dysarthria CN's II- XI intact bilaterally and moves all extremities Psychiatric: A+Ox3, euthymic affect Discharge Data Allergies Allergy/AdvReac Type Severity Reaction Status Date / Time Penicillins Allergy Mild MOUTH SORES Verified 07/05/21 10:16 Consultations 04/05/25 16:03 ED Decision to Admit Stat 04/05/25 18:27 Consult Orthotic Aide Routine 04/05/25 20:05 Consult Cardiology Routine Consult Gastroenterology Routine Procedures Performed Operation Date: 04/08/25 16:30 Actual Procedures p Colonoscopy Biopsy Cytology - See Choe MD Ordered Studies 04/05/25 14:25 CT abd pelvis IV con only Stat CT cervical spine wo con Stat CT chest diagnostic w con Stat CT head/brain wo con Stat Hospital Course (1) Atrial fibrillation with rapid ventricular response: (2) Acute hyponatremia: (3) Dehydration: (4) PAD (peripheral artery disease): (5) Diabetes mellitus, type 2: (6) Hypertension: (7) Pericardial effusion: (8) CAD (coronary artery disease): Plan This is a 69 y/o male with DM2, PAD, known pericardial effusion, hx NSVT, CAD, HTN, dyslipidemia, presented to the ED with recurrent falls and weakness. He was noted to have increased HR (in 180s) in the ED. He was given a total of Lopressor 15 mg IV, then 10 mg of diltiazem - rate transiently dropped to the 130s before returning to the 170s to 180s. He was started on a diltiazem gtt and referred for admission. He was admitted to medical floor; was transferred to ICU due to low blood pressure while on Cardizem drip. Patient underwent electrical cardioversion for unstable tachycardia on 04/05/2025. Narrow complex tachycardia Patient presents with multiple falls; was found to have atrial tachycardia/MAT with a rate in 180s Was transferred to ICU on 04/05 for low blood pressure; underwent emergent cardioversion but reverted back to narrow complex tachycardia Echocardiogram shows EF of 55 to 60% with moderate concentric LVH. During the hospitalization, cardiology was consulted for comanagement. He was started on metoprolol tartrate initially with improvement in heart rate; it was transitioned over to metoprolol succinate. His heart rate is better-controlled at this time. Verapamil discontinued Chronic diarrhea and rectal bleeding Ulcerative colitis Underwent flex sigmoidoscopy on 12/18Several mucosal ulceration with friability and contact bleeding. C. difficile negative. Biopsy s/o ulcerative colitis Stool PCR and C diff are neg. GI on board: Mesalamine 1600 mg twice daily, Rowasa daily, Prednisone, OP GI eval for full colonoscopy and assessing response to therapy and tapering of steroid. Patient reports improving urgency and volume of stool, overnight frequency is slightly improved. Patient denies abdominal pain. Continue to monitor, monitor and replete electrolytes. Acute urinary retention, s/p Ware placementtrial of void attempted without success on April 09, 2025. Trial of void successful on April 11, 2025. Continue on tamsulosin at discharge Hypokalemiarepleted. Monitor. Hyponatremia- Urinary studies reviewed; hypovolemic hyponatremia. improvement note with iv hydration. expect to improve w/ improving appetite. Abnormal chest CT- Chest CT done on 04/05 shows ground glass lesion at right apex measuring up to 10 mm and 8 mm subsolid nodule in left lower lobe that have increased in size dating back to 2022. I discussed these findings with the patient on 04/07/2025. We discussed that he needs pulmonology referral as outpatient after discharge and repeat CT chest in 3 months. He verbalized understanding #Type 2 Diabetes - Holding oral medications, Ozempic - Insulin sliding scale - Diabetic diet as tolerated - BSG ACHS #PAD - s/p iliac stent Per prior attending- restarted on plavix; discussed with patient outpatient vascular team. aspirin dced. CODE STATUS full chemo DVT prophylaxis on hold for possible rectal bleed Patient reports feeling better and is ambulating around with no issues. Patient denies chest pain or palpitation or shortness of breath. Patient denies dizziness. Patient reports eating better. Patient would like to go home. Patient is being discharged with following instructions at the point of discharge: Follow-up with your primary care physician within a week time and likely you will need labs CBC/CMP/magnesium/phosphorus. You were evaluated for increased heart rate, cardiology evaluated you while in the hospital, your Verapamil has been discontinued, you have been put on metoprolol. Follow-up with cardiology in 2 to 4 weeks time upon discharge. You were also diagnosed with ulcerative colitis, GI physician evaluated you. You have been started on mesalamine orally and Rowasa FL. You have also been started on prednisone. As discussed at the bedside, the idea is to gradually taper down the prednisone dose once you start feeling improvement in your symptoms. Currently your will be discharged on prednisone 40 mg daily for 2 weeks, and I strongly recommend that you be in touch with your GI physician or your primary care physician for further dosing on prednisone [either same dose or tapering does] based on your symptoms improvement. As has been explained it is very important for you to reach out to them before your current prescription for prednisone runs out. You were noted to have nodule in the right upper lobe and left lower lobe of the lung. You will need repeat CT scan of the chest in 3 months time to follow-up on this. Coordinate with your PCP office to set up the test. While on prednisone, you can utilize [id number] Pepcid to minimize the effect [gastritis, ulcer]. Take your medications as prescribed. Please make sure that you are able to get your medications today by calling your pharmacy before you leave the hospital so that your treatment continuity is not broken. Please note the above document was generated using voice recognition software. It may contain grammatical, syntax or spelling errors. Any formal questions or concerns about the content, text or information contained within the body of this dictation should be directly addressed to the provider for clarification Home Health Attestation I certify that this patient is under my care and that I, or a physicians assistant customer service manager working with me, had a face to-face encounter that meets the home health [id number] encounter requirements with this patient. The encounter with the patient was in whole, or in part, for the following medical condition, which is the primary reason for home health care (list medical condition): I certify that, based on my findings, the following services are medically necessary home health services: My clinical findings support the need for the above services because: Further, I certify that my clinical findings support that this patient is homebound (i.e. absences from home require considerable and taxing effort and are for medical reasons or episcopal services or infrequently or of short duration when for other reasons) because: Certification for Home Health Services: Based on the above findings, I certify that this patient is confined to the home and needs intermittent residential care, physical therapy and/or speech therapy or continues to need occupational therapy. The patient is under my care, and I have initiated the establishment of the plan of care. This patient will be followed by a physician who will periodically review the plan of care. Total Time Total Time Spent Total Time Spent (In Minutes): 35 Discharge Plan Discharge Items Patient Disposition: Home - Self-Care Reason For Visit: AFIB W/ RVR Discharge Diagnosis: Narrow complex tachycardia Chronic diarrhea and rectal bleeding Ulcerative colitis Acute urinary retention, resolved Abnormal chest CT Condition on Discharge: Serious Activity: Resume your previous activity Non-emergency contact: Primary Care Provider Call non-emergency contact if: you have any medication questions and your symptoms worsen Follow-up/Referrals: Renuka Pineda CRNP [Nurse Practitioner] - 05/14/25 9:30 am Geovanny Lacy MD [Primary Care Provider] - (Date & Time 04/19/2025 9:00 AM Provider: Brenden Reaves MD [facility] ) Diet: Carb Consistent or DM2 and Low Fiber Addtl Attending Provider Instructions: Follow-up with your primary care physician within a week time and likely you will need labs CBC/CMP/magnesium/phosphorus. You were evaluated for increased heart rate, cardiology evaluated you while in the hospital, your Verapamil has been discontinued, you have been put on metoprolol. Follow-up with cardiology in 2 to 4 weeks time upon discharge. You were also diagnosed with ulcerative colitis, GI physician evaluated you. You have been started on mesalamine orally and Rowasa FL. You have also been started on prednisone. As discussed at the bedside, the idea is to gradually taper down the prednisone dose once you start feeling improvement in your symptoms. Currently your will be discharged on prednisone 40 mg daily for 2 weeks, and I strongly recommend that you be in touch with your GI physician or your primary care physician for further dosing on prednisone [either same dose or tapering does] based on your symptoms improvement. As has been explained it is very important for you to reach out to them before your current prescription for prednisone runs out. You were noted to have nodule in the right upper lobe and left lower lobe of the lung. You will need repeat CT scan of the chest in 3 months time to follow-up on this. Coordinate with your PCP office to set up the test. While on prednisone, you can utilize [id number] Pepcid to minimize the effect [gastritis, ulcer]. Take your medications as prescribed. Please make sure that you are able to get your medications today by calling your pharmacy before you leave the hospital so that your treatment continuity is not broken. Pending Studies at Discharge: No Stand-Alone Forms: My [facility], Smoking Cessation Medications and DC Order Prescriptions: New tamsulosin 0.4 mg Capsule 0.4 mg PO QAM Qty: 30 0RF metoprolol succinate 25 mg Tablet Extended Release 24 Hr 75 mg PO BID Qty: 60 0RF mesalamine 800 mg Tablet,Delayed Release (Dr/Ec) 1,600 mg PO BID Qty: 120 0RF mesalamine 4 gram/60 mL Enema 4 g FL DAILY Qty: 1680 0RF prednisone 20 mg Tablet 40 mg PO QAM Qty: 28 0RF nystatin 100,000 unit/mL Suspension 5 ml PO QID 3 Days Qty: 60 0RF famotidine [Pepcid] 20 mg tablet 20 mg PO DAILY Qty: 14 0RF Continued metformin 500 mg Tablet 1,000 mg PO BID Patient Comments: 500mg tabs #2 in am and #1 at hs magnesium oxide 400 mg Capsule 400 mg PO QDD cyanocobalamin (vitamin B-12) 1,000 mcg Tablet, Sublingual 1,000 mcg SUBLINGUAL DAILY Jardiance 25 mg Tablet 25 mg PO DAILY rosuvastatin 20 mg tablet 20 mg PO DAILY Ozempic 1 mg/dose (4 mg/3 mL) pen injector 1 mg SUBCUT WK clopidogrel 75 mg tablet 75 mg PO DAILY Discontinued aspirin 81 mg Tablet,Delayed Release (Dr/Ec) 81 mg PO QDD verapamil 120 mg Tablet Extended Release 120 mg PO QPM Discharge Orders: Discharge Order (Routine); Ordered 04/16/25 Ordered By: Fernanda Kent Admission Data Admit Date/Time: 04/05/25 17:10 Attending Provider: Fernanda Kent Admit Provider: Josiah Thomas Primary Care Provider: Geovanny Lacy Other Providers: Josiah Thomas; Jairo Benoit; See Choe
[2025-04-16 12:20] VITALS: BP 116/69; PULSE 128
== END 2025-04-16 13:08 | disposition home or self-care (01) | DRG 309 ==
LOC: ED 14:05 → SUATTDRO 17:10 → 1E 17:10 → 2S 04-08 17:36